=== PATIENT | male | born 1945 | race Asian ===

== ENCOUNTER 2019-03-03 16:25 | Inpatient (IN) | payer OTHER ==
[2019-03-03] MEDS ORDERED: SODIUM CHLORIDE 1,000 ML IV STA (18:31)
--- NOTE | 2019-03-03 20:10 | PDOC ---
History of Present Illness - General Chief Complaint: Lethargy Stated Complaint: G Tube Problem Time Seen by Provider: 03/03/19 17:49 History Source: Family, Halfway Records, Other (Mason Liner at [facility]) Exam Limitations: Clinical Condition - History of Present Illness Initial Comments: 03/03/19 20:10 Rohan Kumar is a 73M with PMH seizure disorder on 500mg Depakote BID and 1000mg Keppra BID, dementia on Cogentin with AMS and refusal to speak or eat, HTN, HLD presenting from [facility] by Dr. Dozier for admission for failure to thrive and evaluation for PEG tube placement. Per family at bedside, patient has had chronic seizure disorder and dementia, but lately has been lethargic and refusing to speak or eat. Per family, believe it is 2/2 anti-epileptic medications making him drowsy. However, per , patient has been refusing to speak at all or eat for the last week. Was evaluated at [facility] for lethargy and dehydration, family told there that the seizures have "taken over his brain." Sent to [facility] facility for rehab, Dr. Dozier had patient on IV fluids. Today, family had meeting with Nurse Wafer Fabrication Operator at [facility]. Contacted at cell #, reported that family meeting today for goals of care. Per nurse home health care case manager, family believes that patient will recover back to normal and will be able to be independent, despite long discussion that patient was likely not going to recover and will ultimately need hospice care given dementia and seizures and refusal to eat. Family wishes for PEG to be placed so they can take him home to care for him, Dr. Dozier referred patient to [facility] ED for admission for IVF, monitoring, and planning for placement of PEG TONIA. Past History - Past Medical History Allergies/Adverse Reactions: Allergies Allergy/AdvReac Type Severity Reaction Status Date / Time No Known Allergies Allergy Verified 03/03/19 17:25 Home Medications: Ambulatory Orders Acetaminophen [Tylenol] 325 mg PO Q4H PRN 03/03/19 Amlodipine Besylate 5 mg PO DAILY 03/03/19 Apixaban [Eliquis] 5 mg PO BID 03/03/19 Atorvastatin Ca [Lipitor] 20 mg PO HS 03/03/19 Cyanocobalamin (Vitamin B-12) [Cyanocobalamin Injection] 1,000 mcg IJ ASDIR 12/12 Divalproex Sprinkle [Depakote Sprinkle Caps -] 125 mg PO BID 03/03/19 Multivitamin [Multiple Vitamins] 1 each PO DAILY 03/03/19 Sennosides [Senna Lax] 8.6 mg PO BID 03/03/19 levETIRAcetam [levETIRAcetam ORAL SUSPENSION] 100 mg PO BID 03/03/19 Anemia: Yes Cardiac Disorders: Yes (AFIB) COPD: No GI Disorders: Yes (CONSTIPATION) HTN: Yes Hypercholesterolemia: Yes Seizures: Yes Other medical history: METABOLIC ENCEPHALOPATHY,DYSPHAGIA - Immunization History Immunization Up to Date: Yes - Psycho Social/Smoking Cessation Hx Smoking History: Unknown if ever smoked Have you smoked in the past 12 months: No Information on smoking cessation initiated: No Hx Alcohol Use: No Drug/Substance Use Hx: No Review of Systems - Review of Systems Able to Perform ROS?: No (dementia) *Physical Exam - Vital Signs Last Vital Signs Temp Pulse Resp BP Pulse Ox 98.5 F 65 17 124/87 100 03/03/19 17:16 03/03/19 17:16 03/03/19 17:16 03/03/19 17:16 03/03/19 17:16 - Physical Exam General Appearance: Yes: Nourished, Appropriately Dressed, Other (patient is unresponsive to voice commands, no response to sternal rub, actively resisting arm movement or jaw opening). No: Apparent Distress HEENT: positive: EOMI, RAJENDRA. negative: Scleral Icterus (R), Scleral Icterus (L) ED Treatment Course - LABORATORY CBC & Chemistry Diagram: 03/03/19 20:45 03/03/19 20:45 Medical Decision Making - Medical Decision Making 03/03/19 20:10 Rohan Kumar is a 73M with PMH seizure disorder on 500mg Depakote BID and 1000mg Keppra BID, dementia on Cogentin with AMS and refusal to speak or eat, HTN, HLD presenting from [facility] by Dr. Dozier for admission for failure to thrive and evaluation for PEG tube placement. Evaluation via: CMP CBC Coags VBG ECG CXR CT Head Lactic acid 2x VBG samples unable to be run 2/[address] 20G US-guided IV, patient has significant soft tissue edema and deep, small veins, has L arm 20G that flushes well. Will admit to hospitalist team. 03/03/19 22:42 Patient given Keppra and Depakote at 22:30. 03/03/19 22:51 ECG shows NSR with LAD, TWI in leads II/III/aVF, interventricular conduction delay, HR 67, QRS 114, QTc 483 03/03/19 23:52 Patient signed out to Dr. Goodman with hospitalist team, blue for Med-Surg under Dr. Nuno. Going to CT for head scan now. Has bed on 8th floor. Discharge - Discharge Information Problems reviewed: Yes Clinical Impression/Diagnosis: Failure to thrive in adult Dementia Qualifiers: Dementia type: unspecified type Dementia behavioral disturbance: with behavioral disturbance Qualified Code(s): F03.91 - Unspecified dementia with behavioral disturbance Condition: Stable - Admission Yes - Follow up/Referral - Patient Discharge Instructions - Post Discharge Activity
[2019-03-03 20:56] LABS: BASO % 0.8 % (0-2.0); EOS % 0.8 % (0-4.5); HEMATOCRIT 42.5 % (35.4-49); HEMOGLOBIN 13.7 GM/dL (11.7-16.9); LYMPH % 22.3 % (8-40); MCH 30.5 pg (25.7-33.7); MCHC 32.2 g/dl (32.0-35.9); MEAN CELL VOLUME 94.8 fl (80-96); MEAN PLT VOLUME 7.4 fl (7.5-11.1); NEUT % 71.1 % (42.8-82.8); PLATELET COUNT 195 K/MM3 (134-434); RBC 4.49 M/mm3 (4.00-5.60); WHITE BLOOD COUNT 6.2 K/mm3 (4.0-10.0)
[2019-03-03 21:10] LABS: INR 1.39 (0.83-1.09); PROTHROMBIN TIME (PATIENT) 16.4 SEC (9.7-13.0)
[2019-03-03 21:13] LABS: ACTIVATED PTT 22.1 SECONDS (25.2-36.5)
[2019-03-03 21:33] LABS: ALBUMIN 2.4 g/dl (3.4-5.0); BILIRUBIN,TOTAL 0.6 mg/dL (0.2-1); BLOOD UREA NITROGEN 18.5 mg/dL (7-18); CALCIUM 8.2 mg/dL (8.5-10.1); CREATININE 0.4 mg/dL (0.55-1.3); POTASSIUM 4.4 mmol/L (3.5-5.1); TOT PROT 6.1 g/dl (6.4-8.2)
[2019-03-03] MEDS ORDERED: levETIRAcetam 500 MG/5 ML INJECTION VIAL IVPB ONE (22:13)
[2019-03-03] MEDS ORDERED: VALPROATE SODIUM 500 MG/5 ML VIAL ONE (22:14)
[2019-03-03] MEDS: VALPROATE SODIUM 500 MG/5 ML VIAL IVPB SCH ×2 (22:33→23:10)
[2019-03-03] MEDS: levETIRAcetam 500 MG/5 ML INJECTION VIAL IVPB SCH ×2 (22:33→23:10)
--- NOTE | 2019-03-03 22:42 | PDOC ---
Documentation entered by Ronaldo Fajardo SCRIBE, acting as scribe for Mattie Salgado MD. Mattie Salgado MD: This documentation has been prepared by the Scotty berry Daniel, SCRIBE, under my direction and personally reviewed by me in its entirety. I confirm that the documentation accurately reflects all work, treatment, procedures, and medical decision making performed by me. Attending Attestation - Resident Resident Name: Stephen Cheng - ED Attending Attestation I have performed the following: I have examined & evaluated the patient, The case was reviewed & discussed with the resident, I agree w/resident's findings & plan, Exceptions are as noted - HPI HPI: 03/03/19 18:41 The patient is a 73 year old male with a past medical history of seizure disorder here today for evaluation of lethargy. Patient was sent in for admission by Dr. Dozier. Patient has been refusing to open his mouth or take anything PO for 1 week. Patient was seen yesterday at another hospital for lethargy. Patient's blade operator at bedside states that the patient ate a little bit yesterday and is at his baseline mental status. Allergies: NKA PCP: Cortez Dozier - Physicial Exam PE: 03/03/19 19:25 NAD EOMI, RAJENDRA MMM, OP WNL NCAT, no midline cervical tenderness +systolic injection murmur. RRR, nl s1/s2, no r/g CTABL, no w/r/r Soft, NTND, normal bowel sounds No edema, WWP, no rash Neuro grossly intact, gait WNL, moving all 4 not following commands. - Medical Decision Making 03/03/19 19:32 73yoM w/ longstanding seizure disorder, HI resident 2/2 chronic functional decline prensets sent for admit for FTT x 1 week, refusing POs, including meds. - labs w/ preop for PEG placement - hct - ivf - AEDs via IV - admit
--- NOTE | 2019-03-03 23:37 | PN ---
Teaching Attending Note Name of Resident: Ashley Goodman ATTENDING PHYSICIAN STATEMENT I saw and evaluated the patient. I reviewed the resident's note and discussed the case with the resident. I agree with the resident's findings and plan as documented. SUBJECTIVE: 73M with PMH seizure disorder , Metabolic encephalopathy, atrial fibrillation status post CVA, bedbound, hypertension, hyperlipidemia, chronic anemia, dementia Presented with AMS and refusal to speak or eat from [facility] sent by Dr. Dozier for admission for failure to thrive and evaluation for PEG tube placement. OBJECTIVE: Last Vital Signs Temp Pulse Resp BP Pulse Ox 98.5 F 82 20 132/73 100 03/03/19 23:05 03/03/19 23:05 03/03/19 23:05 03/03/19 23:05 03/03/19 23:05 GENERAL: Thin, nontoxic, well nourished. Awake and alert. No acute distress. HEENT: Normocephalic, atraumatic. PERRLA, EOMI. No conjunctival pallor. Sclera are non- icteric. Moist mucous membranes. Oropharynx is clear. NECK: Supple. Full ROM. No JVD. Carotid pulses 2+ and symmetric, without bruits. No thyromegaly. No lymphadenopathy. CARDIOVASCULAR: Regular rate and rhythm. No murmurs, rubs, or gallops. Distal pulses are 2+ and symmetric. PULMONARY: No evidence of respiratory distress. Lungs clear to auscultation bilaterally. No wheezing, rales or rhonchi. ABDOMINAL: Soft. Non-tender. Non-distended. No rebound or guarding. No organomegaly. Normoactive bowel sounds. MUSCULOSKELETAL Normal range of motion at all joints. No bony deformities or tenderness. No CVA tenderness. EXTREMITIES: No cyanosis. No clubbing. No edema. No calf tenderness. SKIN: Small stage II ulcer on sacral region PSYCHIATRIC: Nonverbal, does not follow commands Abnormal Lab Results 03/03/19 03/03/19 03/03/19 20:45 20:45 20:45 MPV 7.4 L PT with INR 16.40 H INR 1.39 H PTT (Actin FS) 22.1 L Anion Gap 3 L BUN 18.5 H Creatinine 0.4 L Random Glucose 70 L Calcium 8.2 L AST 51 H Total Protein 6.1 L Albumin 2.4 L Imaging studies reviewed ASSESSMENT AND PLAN: 73-year-old man with reported failure to thrive, First time in hospital.No acute issues identified at this time.Uncertain baseline mental status, reported to be communicative at baseline and now is silent. Admit to [facility] Follow-up Head CT report Obtain medical records from patient's [facility] Dietary evaluation and calorie count Speech and swallow evaluation Consider GI eval for PEG placement #seizure disorder 500mg Depakote BID and 1000mg Keppra BID(If unable to take Keppra p.o. would switch to IV with the same dose) #History of atrial fibrillationRate was controlled Continue with home dose Eliquis #DVT prophylaxisalready on Eliquis Advanced directivesDNR and DNI as per chart documentation
--- NOTE | 2019-03-04 00:49 | HP ---
CHIEF COMPLAINT: Poor PO intake, failure to thrive and for PEG tube placement PCP: HISTORY OF PRESENT ILLNESS: Pt is a 73 yo M with PMHx of Dementia, seizure disorder, CVA, afib, constipation, HTN, HLD, dysphagia, metab encephalopathy presenting from [facility] for refusal of PO intake, increased lethargy and altered mental status. Pt has been in and out of various hospitals, rehab centers and [place] since October 26, 2017 when he had a stroke which manifested as peripheral visual loss b/l and some R sided weakness than resolved following rehabilitation. In May 2018 he had a generalized tonic clonic seizure, but recovered. In October 2018 he had another seizure, which was thought to to be a stroke but missed tpa window due to elevated BP. Since October 2018 he has not been able to walk and has developed decubitus ulcers and stiffness of the hands. Pt was however said to be communicative until about 3 weeks ago when he became altered again, was admitted for UTI at [facility] and then discharged to [facility]. Today the family decided at a family meeting at [facility] to have the patient get a PEG tube since he is refusing to feed, that is why he was brought in today. 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 Lives with , daughter is HCP but pt now total care an has been in various hospitals and [place] over the past year Smoking: Alcohol: Drugs: Allergies No Known Allergies Allergy (Verified 03/03/19 17:25) HOME MEDICATIONS: Home Medications Medication Instructions Recorded Acetaminophen [Tylenol] 325 mg PO Q4H PRN 03/03/19 Amlodipine Besylate 5 mg PO DAILY 03/03/19 Apixaban [Eliquis] 5 mg PO BID 03/03/19 Atorvastatin Ca [Lipitor] 20 mg PO HS 03/03/19 Cyanocobalamin (Vitamin B-12) 1,000 mcg IJ ASDIR 03/03/19 [Cyanocobalamin Injection] Divalproex Sprinkle [Depakote 125 mg PO BID 03/03/19 Sprinkle Caps -] Multivitamin [Multiple Vitamins] 1 each PO DAILY 03/03/19 Sennosides [Senna Lax] 8.6 mg PO BID 03/03/19 levETIRAcetam [levETIRAcetam ORAL 100 mg PO BID 03/03/19 SUSPENSION] REVIEW OF SYSTEMS Unable to obtain, pt not communicating verbally or obeying commands PHYSICAL EXAMINATION Vital Signs - 24 hr 03/03/19 03/03/19 03/03/19 16:27 17:16 23:05 Temperature 98.5 F 98.5 F Pulse Rate 65 Pulse Rate [ 82 Left Radial] Respiratory 17 20 Rate Blood Pressure 124/87 Blood Pressure 132/73 [Right Arm] O2 Sat by Pulse 100 100 100 Oximetry (%) GENERAL:Thin looking pt, Awake, alert, pt has eyes open, moaned when he was moved to be examined but does not obey commands HEAD: Normal with no signs of trauma. EYES: Pupils equal, round and reactive to light EARS, NOSE, THROAT: Would not open mouth NECK: supple LUNGS: Breath sounds equal, clear to auscultation bilaterally. No wheezes, and no crackles. HEART: irregular rate and rhythm, normal S1 and S2, 3/6 pansystolic murmur LLSB radiating to axilla ABDOMEN: Soft, nontender, not distended, normoactive bowel sounds, no guarding, no rebound, no masses. MAIRA: Saccral decubitus ulcer stage 3, [id number], clean, no anal fissures, prolapse or tags. Firm soft stool in anal vault. Enlarged prostate, firm, mobile mucosa, no palpable nodules. Gloved finger with brownish stool UPPER EXTREMITIES: B/L extremities in flexion with cushioning in palm LOWER EXTREMITIES: B/l supportive cushioning . Decubitus ulcers on L medial ankle stage 2,plantar surface of heel b/l NEUROLOGICAL: Moans to pain, but does not withdraw feet CBC, BMP 03/03/19 20:45 03/03/19 20:45 Laboratory Results - last 24 hr 03/03/19 03/03/19 03/03/19 20:45 20:45 20:45 WBC 6.2 RBC 4.49 Hgb 13.7 Hct 42.5 MCV 94.8 MCH 30.5 MCHC 32.2 RDW 15.0 Plt Count 195 MPV 7.4 L Absolute Neuts (auto) 4.4 Neutrophils % 71.1 Lymphocytes % 22.3 Monocytes % 5.0 Eosinophils % 0.8 Basophils % 0.8 Nucleated RBC % 0 PT with INR 16.40 H INR 1.39 H PTT (Actin FS) 22.1 L VBG pH POC VBG pCO2 POC VBG pO2 VBG HCO3 VBG O2 Sat (Yolanda) VBG Base Excess Sodium 141 Potassium 4.4 Chloride 106 Carbon Dioxide 32 Anion Gap 3 L BUN 18.5 H Creatinine 0.4 L Est GFR (CKD-EPI)AfAm 134.66 Est GFR (CKD-EPI)NonAf 116.19 Random Glucose 70 L Lactic Acid Calcium 8.2 L Total Bilirubin 0.6 AST 51 H ALT 28 Alkaline Phosphatase 112 Total Protein 6.1 L Albumin 2.4 L Blood Type Antibody Screen 03/03/19 03/03/19 03/03/19 20:45 20:45 20:45 WBC RBC Hgb Hct MCV MCH MCHC RDW Plt Count MPV Absolute Neuts (auto) Neutrophils % Lymphocytes % Monocytes % Eosinophils % Basophils % Nucleated RBC % PT with INR INR PTT (Actin FS) VBG pH Cancelled POC VBG pCO2 Cancelled POC VBG pO2 Cancelled VBG HCO3 Cancelled VBG O2 Sat (Yolanda) Cancelled VBG Base Excess Cancelled Sodium Potassium Chloride Carbon Dioxide Anion Gap BUN Creatinine Est GFR (CKD-EPI)AfAm Est GFR (CKD-EPI)NonAf Random Glucose Lactic Acid 2.0 Calcium Total Bilirubin AST ALT Alkaline Phosphatase Total Protein Albumin Blood Type O POSITIVE Antibody Screen Negative 03/03/19 21:44 WBC RBC Hgb Hct MCV MCH MCHC RDW Plt Count MPV Absolute Neuts (auto) Neutrophils % Lymphocytes % Monocytes % Eosinophils % Basophils % Nucleated RBC % PT with INR INR PTT (Actin FS) VBG pH Cancelled POC VBG pCO2 Cancelled POC VBG pO2 Cancelled VBG HCO3 Cancelled VBG O2 Sat (Yolanda) Cancelled VBG Base Excess Cancelled Sodium Potassium Chloride Carbon Dioxide Anion Gap BUN Creatinine Est GFR (CKD-EPI)AfAm Est GFR (CKD-EPI)NonAf Random Glucose Lactic Acid Calcium Total Bilirubin AST ALT Alkaline Phosphatase Total Protein Albumin Blood Type Antibody Screen Ambulatory Orders Acetaminophen [Tylenol] 325 mg PO Q4H PRN 03/03/19 Amlodipine Besylate 5 mg PO DAILY 03/03/19 Apixaban [Eliquis] 5 mg PO BID 03/03/19 Atorvastatin Ca [Lipitor] 20 mg PO HS 03/03/19 Cyanocobalamin (Vitamin B-12) [Cyanocobalamin Injection] 1,000 mcg IJ ASDIR 12/12 Divalproex Sprinkle [Depakote Sprinkle Caps -] 125 mg PO BID 03/03/19 Multivitamin [Multiple Vitamins] 1 each PO DAILY 03/03/19 Sennosides [Senna Lax] 8.6 mg PO BID 03/03/19 levETIRAcetam [levETIRAcetam ORAL SUSPENSION] 100 mg PO BID 03/03/19 Current Medications Acetaminophen (Tylenol -) 325 mg PO Q4H PRN PRN Reason: PAIN Amlodipine Besylate (Norvasc -) 5 mg PO DAILY [facility] Apixaban (Eliquis -) 5 mg PO BID [facility] Atorvastatin Calcium (Lipitor -) 20 mg PO HS [facility] Divalproex Sodium (Depakote Sprinkle Caps -) 125 mg PO BID [facility] Levetiracetam (Keppra Injection -) 1,000 mg IVPB BID [facility] Last Admin: 03/03/19 23:10 Dose: Not Given Multivitamins/Minerals/Vitamin C (Tab-A-Vit -) 1 tab PO DAILY [facility] Senna (Senna -) 1 tab PO BID [facility] Valproate Sodium (Depacon Injection -) 500 mg IVPB BID [facility] Last Admin: 03/03/19 23:10 Dose: Not Given ASSESSMENT/PLAN: Pt is a 73 yo M with PMHx of Dementia, seizure disorder, CVA, afib, constipation , HTN, HLD, dysphagia, metab encephalopathy presenting from [facility] for refusal of PO intake, increased lethargy and altered mental status. Failure to thrive s/p recurrent strokes Hx of dementia dysphagia Possible depression, may benefit from psych eval Dementia, seizure disorder-cont AED CVA- freq turning Fall precautions afib, constipation- cotn senna HTN-amlodipine HLD- lipitor metab encephalopathy - CT head pending Plan: Accurate calorie count Dietary consult Swallow eval Will repeat ekg in am Consider GI consult for possible PEG tube placement Pt currently eliquis for afib, is also high risk for DVT with immobility, will continue for now CT head read pending Cont home meds Discussion of goals of care with family DNR/dni Salt free diet Cont eliquis Visit type - Emergency Visit Emergency Visit: Yes ED Registration Date: 03/03/19 Care time: The patient presented to the Emergency Department on the above date and was hospitalized for further evaluation of their emergent condition. - New Patient This patient is new to me today: Yes Date on this admission: 03/04/19 - Critical Care Critical Care patient: No ATTENDING PHYSICIAN STATEMENT I saw and evaluated the patient. I reviewed the resident's note and discussed the case with the resident. I agree with the resident's findings and plan as documented. SUBJECTIVE: OBJECTIVE: ASSESSMENT AND PLAN:
[2019-03-04 02:19] VITALS: BMI 23.1
[2019-03-04 07:58] LABS: BASO % 0.7 % (0-2.0); EOS % 0.7 % (0-4.5); HEMATOCRIT 35.6 % (35.4-49); HEMOGLOBIN 11.9 GM/dL (11.7-16.9); LYMPH % 24.3 % (8-40); MCHC 33.3 g/dl (32.0-35.9); MEAN CELL VOLUME 93.3 fl (80-96); MEAN PLT VOLUME 7.5 fl (7.5-11.1); MONO % 8.9 % (3.8-10.2); NEUT % 65.4 % (42.8-82.8); PLATELET COUNT 131 K/MM3 (134-434); RBC 3.82 M/mm3 (4.00-5.60); WHITE BLOOD COUNT 5.8 K/mm3 (4.0-10.0)
--- NOTE | 2019-03-04 08:17 | PN ---
Progress Note, Physician Chief Complaint: Patient is comfortable eating breakfast. History of Present Illness: 73M with PMH seizure disorder , Metabolic encephalopathy, atrial fibrillation status post CVA, bedbound, hypertension, hyperlipidemia, chronic anemia, dementia Presented with AMS and refusal to speak or eat from [facility] sent by Dr. Dozier for admission for failure to thrive and evaluation for PEG tube placement. - Current Medication List Current Medications: Active Medications Acetaminophen (Tylenol -) 325 mg PO Q4H PRN PRN Reason: PAIN Amlodipine Besylate (Norvasc -) 5 mg PO DAILY [facility] Apixaban (Eliquis -) 5 mg PO BID [facility] Atorvastatin Calcium (Lipitor -) 20 mg PO HS [facility] Levetiracetam (Keppra Injection -) 1,000 mg IVPB BID [facility] Last Admin: 03/03/19 23:10 Dose: Not Given Multivitamins/Minerals/Vitamin C (Tab-A-Vit -) 1 tab PO DAILY [facility] Senna (Senna -) 1 tab PO BID [facility] Valproate Sodium (Depacon Injection -) 500 mg IVPB BID [facility] Last Admin: 03/03/19 23:10 Dose: Not Given - Objective Vital Signs: Vital Signs Temperature 97.5 F L 03/04/19 07:45 Pulse Rate 65 03/04/19 07:45 Respiratory Rate 20 03/04/19 07:45 Blood Pressure 110/65 03/04/19 07:45 O2 Sat by Pulse Oximetry (%) 96 03/04/19 02:27 General: Elderly man, comfortable, not in distress HEENT; mucous membranes moist, no anemia, no jaundice, PERRLA, no nystagmus Neck: No JVD, supple, no bruit, thyroid palpably normal, normal carotid pulsations. Chest: Nontender, clear to auscultation bilaterally CVS: S1-S2 regular/irregular no murmur/gallop/rub Abdomen: Nondistended, soft, bowel sounds present. Extremities: Trace edema., No cough tenderness, pulses present COMPLIANCE QUALITY PERFORMANCE ANALYST: Right-sided hemiparesis at baseline Labs: INR, PTT INR 1.39 (0.83-1.09) H 03/03/19 20:45 CBC, BMP 03/04/19 07:18 03/04/19 06:36 Problem List - Problems (1) Failure to thrive in adult Assessment/Plan: Patient was referred to ED for evaluation of failure to thrive patient was hypoglycemic, but at the time of examination patient was eating breakfast assisted by nurse eating without any choking or aspiration, will continue feeding with aspiration precautions, evaluation by speech and swallow if fails needs evaluation by the GI, as per residential note patient was not taking any problem with swallowing but he was refusing for and not opening his mouth. Problems reviewed: Yes Code(s): R62.7 - ADULT FAILURE TO THRIVE (2) Dementia Assessment/Plan: Chronic no acute issue. Problems reviewed: Yes Code(s): F03.90 - UNSPECIFIED DEMENTIA WITHOUT BEHAVIORAL DISTURBANCE Qualifiers: Dementia type: unspecified type Dementia behavioral disturbance: with behavioral disturbance Qualified Code(s): F03.91 - Unspecified dementia with behavioral disturbance (3) Atrial fibrillation Assessment/Plan: Rate controlled continue apixaban. We will anticoagulate Problems reviewed: Yes Code(s): I48.91 - UNSPECIFIED ATRIAL FIBRILLATION Qualifiers: Atrial fibrillation type: permanent Qualified Code(s): I48.21 - Permanent atrial fibrillation (4) CVA (cerebral vascular accident) Assessment/Plan: Old CVA right-sided hemiparesis patient is bedbound minimally contracted. Problems reviewed: Yes Code(s): I63.9 - CEREBRAL INFARCTION, UNSPECIFIED (5) Seizure disorder Assessment/Plan: Continue Keppra and valproic acid follow-up valproic acid level. Problems reviewed: Yes Code(s): G40.909 - EPILEPSY, UNSP, NOT INTRACTABLE, WITHOUT STATUS EPILEPTICUS (6) Toxic metabolic encephalopathy Assessment/Plan: Due to hypoglycemia, fingerstick noted 53, will start on D5 half normal saline at 50 cc Accu-Chek twice daily Problems reviewed: Yes Code(s): G92 - TOXIC ENCEPHALOPATHY (7) Hypertension Assessment/Plan: Continue home medications amlodipine Problems reviewed: Yes Code(s): I10 - ESSENTIAL (PRIMARY) HYPERTENSION (8) Hypercholesterolemia Assessment/Plan: Continue atorvastatin Problems reviewed: Yes Code(s): E78.00 - PURE HYPERCHOLESTEROLEMIA, UNSPECIFIED
[2019-03-04 08:30] LABS: ALBUMIN 1.8 g/dl (3.4-5.0); BILIRUBIN,TOTAL 0.4 mg/dL (0.2-1); BLOOD UREA NITROGEN 15.6 mg/dL (7-18); CALCIUM 7.6 mg/dL (8.5-10.1); CREATININE 0.3 mg/dL (0.55-1.3); MAGNESIUM 2.1 mg/dL (1.8-2.4); PHOSPHOROUS 2.5 mg/dL (2.5-4.9); POTASSIUM 3.8 mmol/L (3.5-5.1); TOT PROT 4.5 g/dl (6.4-8.2)
[2019-03-04] MEDS: VALPROATE SODIUM 500 MG/5 ML VIAL IVPB SCH ×2 (09:55→21:28)
[2019-03-04 09:58] LABS: URINE APPEARANCE CLEAR; URINE BILIRUBIN NEGATIVE (NEGATIVE); URINE COLOR YELLOW; URINE GLUCOSE (UA) NEGATIVE (NEGATIVE); URINE KETONE NEGATIVE (NEGATIVE); URINE LEUK ESTERASE NEGATIVE (NEGATIVE); URINE NITRITE NEGATIVE (NEGATIVE); URINE PROTEIN NEGATIVE (NEGATIVE)
[2019-03-04] MEDS: levETIRAcetam 500 MG/5 ML INJECTION VIAL IVPB SCH ×2 (09:58→21:33)
[2019-03-04] MEDS: SENNOSIDES 8.6MG TABLET (FP) PO SCH ×2 (10:00→21:35)
[2019-03-04] MEDS: APIXABAN 5 MG TABLET PO SCH ×2 (10:00→21:35)
[2019-03-04] MEDS ORDERED: LEVETIRACETAM PO SCH (10:00)
[2019-03-04] MEDS ORDERED: DIVALPROEX SODIUM 125 MG SPRINKLE CAPS PO SCH (10:00)
[2019-03-04] MEDS: MULTIVITAMINS (DAILY MVI) TABLET (FP) PO SCH (10:00)
[2019-03-04] MEDS: amLODIPine BESYLATE 5 MG TABLET (FP) PO SCH (10:01)
--- NOTE | 2019-03-04 11:29 | EKG ---
Test Reason : Blood Pressure : / mmHG Vent. Rate : 067 BPM Atrial Rate : 067 BPM P-R Int : 172 ms QRS Dur : 122 ms QT Int : 444 ms P-R-T Axes : 053 -39 -33 degrees QTc Int : 469 ms NORMAL SINUS RHYTHM LEFT AXIS DEVIATION RIGHT BUNDLE BRANCH BLOCK ABNORMAL ECG WHEN COMPARED WITH ECG OF 03-MAR-2019 21:41, NO SIGNIFICANT CHANGE WAS FOUND Confirmed by BISHOP MCGOWAN, SAY ([id number]) on 03/04/2019 11:29:00 AM Referred By: Wade CEDEÑO Confirmed By:SAY ALAS MD
--- NOTE | 2019-03-04 11:29 | EKG ---
Test Reason : Blood Pressure : / mmHG Vent. Rate : 067 BPM Atrial Rate : 067 BPM P-R Int : 168 ms QRS Dur : 114 ms QT Int : 458 ms P-R-T Axes : 041 -41 -41 degrees QTc Int : 483 ms NORMAL SINUS RHYTHM LEFT AXIS DEVIATION RIGHT BUNDLE BRANCH BLOCK ABNORMAL ECG NO PREVIOUS ECGS AVAILABLE Confirmed by BISHOP MCGOWAN, SAY ([id number]) on 03/04/2019 11:28:53 AM Referred By: Confirmed By:SAY ALAS MD
[2019-03-04] MEDS ORDERED: PT OWN MED DRAWER 7, Y5N ONE (12:12)
[2019-03-04] MEDS ORDERED: D5-1/2NS+10 MEQ KCL - 1,000 ML IV SCH ×2 (12:30)
[2019-03-04] MEDS: D5-1/2NS+10 MEQ KCL - 10 MEQ/1,000 ML INFUS.BAG IV SCH (12:32)
[2019-03-04] MEDS: ATORVASTATIN CA 20 MG TABLET (FP) PO SCH (21:35)
--- NOTE | 2019-03-05 08:19 | PN ---
Progress Note, Physician Chief Complaint: Patient is looks comfortable responding to verbal commands with simple transfers , able to eat consuming more than 50% of his tray no choking or coughing during eating. History of Present Illness: 73M DNR/DNI with multiple medical co-morbidities, history of atrial fibrillation , CVA, right-sided residual weakness, patient, hypertension, chronic anemia, dementia, bedbound seizure disorder, patient was transferred from [facility] on family request to evaluate for PEG placement as patient was not tolerating, patient was transferred to [facility] on 03/01/2019 from [facility] day he was admitted for toxic metabolic encephalopathy. - Current Medication List Current Medications: Active Medications Acetaminophen (Tylenol -) 325 mg PO Q4H PRN PRN Reason: PAIN Amlodipine Besylate (Norvasc -) 5 mg PO DAILY [facility] Last Admin: 03/04/19 10:01 Dose: 5 mg Apixaban (Eliquis -) 5 mg PO BID [facility] Last Admin: 03/04/19 21:35 Dose: 5 mg Atorvastatin Calcium (Lipitor -) 20 mg PO HS [facility] Last Admin: 03/04/19 21:35 Dose: 20 mg Potassium Chloride/Dextrose/Sod Cl (D5-1/2ns+10 Meq Kcl -) 10 meq in 1,000 mls @ 42 mls/hr IV ASDIR [facility] Last Admin: 03/04/19 12:32 Dose: 42 mls/hr Levetiracetam (Keppra Injection -) 1,000 mg IVPB BID [facility] Last Admin: 03/04/19 21:33 Dose: 1,000 mg Multivitamins/Minerals/Vitamin C (Tab-A-Vit -) 1 tab PO DAILY [facility] Last Admin: 03/04/19 10:00 Dose: 1 tab Senna (Senna -) 1 tab PO BID [facility] Last Admin: 03/04/19 21:35 Dose: 1 tab Valproate Sodium (Depacon Injection -) 500 mg IVPB BID [facility] Last Admin: 03/04/19 21:28 Dose: 500 mg - Objective Vital Signs: Vital Signs Temperature 97.4 F L 03/05/19 07:29 Pulse Rate 86 03/05/19 07:29 Respiratory Rate 20 03/05/19 07:29 Blood Pressure 119/70 03/05/19 07:29 O2 Sat by Pulse Oximetry (%) 99 03/04/19 21:00 General: Elderly man, comfortable, not in distress HEENT; mucous membranes moist, no anemia, no jaundice, PERRLA, no nystagmus Neck: No JVD, supple, no bruit, thyroid palpably normal, normal carotid pulsations. Chest: Nontender, clear to auscultation bilaterally CVS: S1-S2 irregular no murmur/gallop/rub Abdomen: Nondistended, soft, bowel sounds present. Extremities: Trace edema., No cough tenderness, pulses present [employer]: Right-sided hemiparesis at baseline Labs: CBC, BMP 03/04/19 07:18 03/04/19 06:36 Problem List - Problems (1) Failure to thrive in adult Assessment/Plan: Patient was referred to ED for evaluation of failure to thrive patient was hypoglycemic, but at the time of examination patient was eating breakfast assisted by nurse eating without any choking or aspiration, will continue feeding with aspiration precautions, evaluation by speech and swallow if fails needs evaluation by the GI, as per senior care note patient was not taking any problem with swallowing but he was refusing for and not opening his mouth. Code(s): R62.7 - ADULT FAILURE TO THRIVE (2) Dementia Assessment/Plan: Chronic no acute issue. Code(s): F03.90 - UNSPECIFIED DEMENTIA WITHOUT BEHAVIORAL DISTURBANCE Qualifiers: Dementia type: unspecified type Dementia behavioral disturbance: with behavioral disturbance Qualified Code(s): F03.91 - Unspecified dementia with behavioral disturbance (3) Atrial fibrillation Assessment/Plan: Rate controlled continue apixaban. We will anticoagulate Code(s): I48.91 - UNSPECIFIED ATRIAL FIBRILLATION Qualifiers: Atrial fibrillation type: permanent Qualified Code(s): I48.21 - Permanent atrial fibrillation (4) CVA (cerebral vascular accident) Assessment/Plan: Old CVA right-sided hemiparesis patient is bedbound minimally contracted. Code(s): I63.9 - CEREBRAL INFARCTION, UNSPECIFIED (5) Seizure disorder Assessment/Plan: Continue Keppra 1 g twice daily, valproic acid 500 mg twice daily, follow-up valproic acid level. Code(s): G40.909 - EPILEPSY, UNSP, NOT INTRACTABLE, WITHOUT STATUS EPILEPTICUS (6) Toxic metabolic encephalopathy Assessment/Plan: Due to hypoglycemia, fingerstick noted 53, will start on D5 half normal saline at 50 cc Accu-Chek twice daily Code(s): G92 - TOXIC ENCEPHALOPATHY (7) Hypertension Assessment/Plan: Continue home medications amlodipine Code(s): I10 - ESSENTIAL (PRIMARY) HYPERTENSION (8) Hypercholesterolemia Assessment/Plan: Continue atorvastatin Code(s): E78.00 - PURE HYPERCHOLESTEROLEMIA, UNSPECIFIED (9) Severe malnutrition Assessment/Plan: Due to poor p.o. intake, patient has low albumin, as per patient nurse patient is completing 50% of the MEAL TRAY each meal, follow clear movement and disposition swallow evaluation. Problems reviewed: Yes Code(s): E43 - UNSPECIFIED SEVERE PROTEIN-CALORIE MALNUTRITION
[2019-03-05] MEDS ORDERED: PT OWN MED DRAWER 7, Y5N ONE ×4 (10:08→21:14)
[2019-03-05] MEDS: SENNOSIDES 8.6MG TABLET (FP) PO SCH ×2 (10:19→21:08)
[2019-03-05] MEDS: amLODIPine BESYLATE 5 MG TABLET (FP) PO SCH (10:19)
[2019-03-05] MEDS: APIXABAN 5 MG TABLET PO SCH ×2 (10:19→21:08)
[2019-03-05] MEDS: MULTIVITAMINS (DAILY MVI) TABLET (FP) PO SCH (10:19)
[2019-03-05] MEDS: VALPROATE SODIUM 500 MG/5 ML VIAL IVPB SCH ×2 (10:22→21:16)
[2019-03-05] MEDS: levETIRAcetam 500 MG/5 ML INJECTION VIAL IVPB SCH ×2 (11:37→21:07)
[2019-03-05] MEDS ORDERED: CYANOCOBALAMIN (VITAMIN B-12) 1000 MCG/1 ML VIAL IM ONE (14:21)
[2019-03-05 15:45] LABS: BLOOD UREA NITROGEN 11.2 mg/dL (7-18); CALCIUM 7.9 mg/dL (8.5-10.1); CREATININE 0.3 mg/dL (0.55-1.3); POTASSIUM 3.6 mmol/L (3.5-5.1)
[2019-03-05 15:57] LABS: BASO % 0.5 % (0-2.0); EOS % 1.3 % (0-4.5); HEMATOCRIT 35.9 % (35.4-49); HEMOGLOBIN 11.9 GM/dL (11.7-16.9); LYMPH % 24.2 % (8-40); MCH 30.8 pg (25.7-33.7); MEAN CELL VOLUME 93.2 fl (80-96); MEAN PLT VOLUME 7.4 fl (7.5-11.1); MONO % 9.4 % (3.8-10.2); NEUT % 64.6 % (42.8-82.8); PLATELET COUNT 170 K/MM3 (134-434); RBC 3.85 M/mm3 (4.00-5.60); RDW 14.7 % (11.9-15.9); WHITE BLOOD COUNT 6.6 K/mm3 (4.0-10.0)
[2019-03-05] MEDS: ATORVASTATIN CA 20 MG TABLET (FP) PO SCH (21:08)
[2019-03-05] MEDS: D5-1/2NS+10 MEQ KCL - 10 MEQ/1,000 ML INFUS.BAG IV SCH (21:09)
--- NOTE | 2019-03-06 07:39 | PN ---
Progress Note (short form) - Note Progress Note: HPI: Limited due to clinical condition. Briefly, pt arrived here for failure to thrive and possible PEG tube, however has been eating dysphagia diet ~50% of food per meal. Vital Signs Temperature 97.5 F L 03/06/19 06:00 Pulse Rate 83 03/06/19 06:00 Respiratory Rate 20 03/06/19 06:00 Blood Pressure 120/64 03/06/19 06:00 O2 Sat by Pulse Oximetry (%) 98 03/05/19 21:00 PE: Gen: : Thin-appearing, NAD, awake, alert, oriented to self HEENT: NC/AT, bitemporal wasting noted, HAYLEY, sclera anicteric, MMM Lung: CTA b/l no wheezes or rales CARD: RRR no murmurs ABD: Soft, Nt/ND, normoactive BS Neuro: R-sided weakness in resistance (baseline) EXT: no edema, pulses b/l intact CBC, BMP 03/06/19 07:20 03/06/19 07:20 03/06/19 07:20 Prealbumin 13.4 L Microbiology 03/04/19 07:00 Urine - Urine - Catheterized Urine Culture - Final NO GROWTH OBTAINED Active Medications Acetaminophen (Tylenol -) 325 mg PO Q4H PRN PRN Reason: PAIN Amlodipine Besylate (Norvasc -) 5 mg PO DAILY [facility] Last Admin: 03/05/19 10:19 Dose: 5 mg Apixaban (Eliquis -) 5 mg PO BID [facility] Last Admin: 03/05/19 21:08 Dose: 5 mg Atorvastatin Calcium (Lipitor -) 20 mg PO HS [facility] Last Admin: 03/05/19 21:08 Dose: 20 mg Potassium Chloride/Dextrose/Sod Cl (D5-1/2ns+10 Meq Kcl -) 10 meq in 1,000 mls @ 42 mls/hr IV [facility] Last Admin: 03/05/19 21:09 Dose: 42 mls/hr Levetiracetam (Keppra Injection -) 1,000 mg IVPB BID [facility] Last Admin: 03/05/19 21:07 Dose: 1,000 mg Multivitamins/Minerals/Vitamin C (Tab-A-Vit -) 1 tab PO DAILY [facility] Last Admin: 03/05/19 10:19 Dose: 1 tab Senna (Senna -) 1 tab PO BID [facility] Last Admin: 03/05/19 21:08 Dose: 1 tab Valproate Sodium (Depacon Injection -) 500 mg IVPB BID [facility] Last Admin: 03/05/19 21:16 Dose: 500 mg Assessment and Plan: Failure to Thrive History of dementia Seizure history s/p CVA Atrial fibrillation, rate controlled Hx of HTN Hx of HLD --Speech and swallow examination pending and based upon recommendations will discuss PEG placement --Pt noted to be eating 50%+ of food tray so possibility of postponing, but will discuss with family --F/u dietary recommendations --Prealbumin 13.4 noted --Continue home seizure medications: Keppra 1gm BID Valproate 500mg BID --Obtain records from [facility] as noted to have nonconvulsive seizures --Continue Eliquis 5mg BID as patient has CHADS score 5 --Monitor HR; currently rate controlled --Continue Norvasc 5mg qdaily for HTN FEN: Fluids: None Electrolyte abnormalitieS: None Nutrition: Follow S&S recs PPX: DVT - Already on Eliquis GI - Not indicated Dispo: Continue M/S Case discussed with Dr. Jes Boothe, DO - IM PGY-3 <Horacio Boothe - Last Filed: 03/06/19 17:45> - Note Progress Note: [facility] *LIVE* Progress Note (short form) Patient Name: CELIA KENDALL Date of : 1945 Patient Status: Inpatient Attending Provider: Sunil Andre Date: 03/07/19 12:54 Initialization Date: 03/07/19 12:54 Progress Note (short form) - Note Progress Note: HPI: Limited due to clinical condition. Pt without pain or complaints today. Events noted. [facility] [place] dietary evaluation. Vital Signs Temperature 98 F 03/07/19 11:36 Pulse Rate 81 03/07/19 11:36 Respiratory Rate 20 03/07/19 11:36 Blood Pressure 122/86 03/07/19 11:36 O2 Sat by Pulse Oximetry (%) 99 03/06/19 21:00 PE: Gen: : Thin-appearing, NAD, awake, alert, oriented to self HEENT: NC/AT, bitemporal wasting noted, HAYLEY, sclera anicteric, MMM Lung: CTA b/l no wheezes or rales CARD: RRR no murmurs ABD: Soft, Nt/ND, normoactive BS Neuro: R-sided weakness in resistance (baseline) EXT: no edema, pulses b/l intact CBC, BMP 03/07/19 07:25 03/07/19 07:25 03/06/19 07:20 Prealbumin 13.4 L Microbiology 03/04/19 07:00 Urine - Urine - Catheterized Urine Culture - Final NO GROWTH OBTAINED Active Medications Acetaminophen (Tylenol -) 325 mg PO Q4H PRN PRN Reason: PAIN Last Admin: 03/06/19 10:36 Dose: 325 mg Amlodipine Besylate (Norvasc -) 5 mg PO DAILY [facility] Last Admin: 03/07/19 10:16 Dose: 5 mg Atorvastatin Calcium (Lipitor -) 20 mg PO HS [facility] Last Admin: 03/06/19 22:12 Dose: 20 mg Levetiracetam (Keppra Oral Solution -) 1,000 mg PO BID [facility] Last Admin: 03/07/19 10:15 Dose: 1,000 mg Multivitamins/Minerals/Vitamin C (Tab-A-Vit -) 1 tab PO DAILY [facility] Last Admin: 03/07/19 10:15 Dose: 1 tab Senna (Senna -) 1 tab PO BID [facility] Last Admin: 03/07/19 10:15 Dose: 1 tab Valproate Sodium (Depakene -) 500 mg PO BID [facility] Last Admin: 03/07/19 10:16 Dose: 500 mg Assessment and Plan: Failure to Thrive History of dementia Seizure history s/p CVA Atrial fibrillation, rate controlled Hx of HTN Hx of HLD --MBS today; discuss with family regarding PEG tube placement --Discussed with IR: will have to be off Eliquis for 2 days; can heparin gtt until then and hold 6hrs prior to surgery --Prep needed tentatively night for tentative PEG insertion Wednesday --Prealbumin 13.4 noted --Continue home seizure medications: Keppra 1gm BID Valproate 500mg BID --Obtain records from [facility] as noted to have nonconvulsive seizures --CHADS score 5; heparin gtt ordered for bridging for procedure --Monitor HR; currently rate controlled --Continue Norvasc 5mg qdaily for HTN FEN: Fluids: None Electrolyte abnormalities: None Nutrition: Follow S&S recs PPX: DVT - AC already on board for Afib GI - Not indicated Dispo: Continue M/S Case discussed with Dr. Jes Boothe, DO - IM PGY-3 <Horacio Boothe - Last Filed: 03/07/19 12:54> - Note Progress Note: Seen and examined; please see resident note for further discussion. Agree with their note including assessment and plan as outlined aside from as supplemented myself. Independently reviewed and verified all kelsey historical and PE findings as well as labs and imaging. Discussed at length with resident and consulting services. Aside from above no overnight events indicated; no apparent seizure activity but conversation with the family yields silent seizures as the underlying historical features. Ate 50% meal tray yesterday and as per resident today. 10 sys ROS couldn't be reliably completed due to underlying cognative issues with chronic illness VS, labs, imaging reviewed NAD AAOx1-2 resting in bed; debatable capacity and would need HCP or 2PC for procedure. Frail appearing but not cachectic or toxic. NC AT EOMI PERRLA; swallow eval pending formally RRR s1/2 Lungs CTAB, w/ sym exp NT ND +BS CN2-12 wnl, no fnd Normal mood, appropriate behavior; not agitated, limited insight due to underlying dementia. No new rashes or skin breakdown noted Trachea midline without lymphadenopathy A/P: Patient presents from SNF with complex medical history as an initial admission to [facility]. Would like to clarify some parts of history (IE his presenting signs, especially given nonexressive nature of seizures, limited communication, and DNR /I should SE occurr at any point now or after DC). He is here due to poor PO intake and for evaluation of Failure to Thrive and potential for PEG tube placement. He has a poor apparent swallow effort and a previously noted atypical speech pattern that indicated swallow evaluation with Mrs. Holcomb as well. He is confirmed as DNR/I. He is on eliquis which will need to be held should PEG be placed; would likely do heparin drip with close PTT monitoring and obtain guidance regarding when to hold. Continue other home medications and montior on the med surg floor. Nursing noted a concern about a low apparent pressure but he has been trending at this level through the weekend and is asymptomatic. Problems include: -Suspected Failure to Thrive/Poor PO Intake *Followup prealbumin, PT consult, Nutrition consult. Swallow eval given aforemntioned concerns to r/o mechanical issue. Family would opt for PEG should calorie counting endorse need (or [facility]). -Dementia without behavioral disturbance (Likely vascular +/- alzheimers, etc. Was on aricept in the past and failed due to agitation; no acute issues with sundowning or confusion. Continue to closely monitor. Is DNR/I. Admitting team confirmed paperwork) *If agitated would redirect. Avoid BZDs and would opt for haldol or seroquel if needed for sedation (FU QTc). Lacks capacity and would require HCP to consent. DNR/I. -S/P CVA *Reconcile and continue appropriate home medications. Confirm records from OSH. -Seizure history *Seizure precautions, continue home meds. Confirm records from OSH. -Hx HTN *Controlled, continue home medications. -Hx HLD DNR/I Dispo: Once completes nutiritional and swallow assessment, will discuss overall need for PEG. If he continues to eat this would not be indicated and he can be discharged. Checking prealbumin, monitoring lytes, aspiration precautions. <Sunil Andre - Last Filed: 03/07/19 22:37>
[2019-03-06 08:13] LABS: BASO % 0.5 % (0-2.0); EOS % 1.1 % (0-4.5); HEMATOCRIT 35.8 % (35.4-49); HEMOGLOBIN 11.8 GM/dL (11.7-16.9); LYMPH % 33.3 % (8-40); MCH 30.8 pg (25.7-33.7); MEAN CELL VOLUME 93.3 fl (80-96); MEAN PLT VOLUME 7.1 fl (7.5-11.1); MONO % 8.8 % (3.8-10.2); NEUT % 56.3 % (42.8-82.8); PLATELET COUNT 171 K/MM3 (134-434); RBC 3.83 M/mm3 (4.00-5.60); RDW 14.9 % (11.9-15.9); WHITE BLOOD COUNT 6.7 K/mm3 (4.0-10.0)
[2019-03-06 08:32] LABS: BLOOD UREA NITROGEN 6.6 mg/dL (7-18); CALCIUM 7.9 mg/dL (8.5-10.1); CREATININE 0.3 mg/dL (0.55-1.3); POTASSIUM 3.9 mmol/L (3.5-5.1)
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
[2019-03-06] MEDS ORDERED: PT OWN MED DRAWER 7, Y5N ONE ×3 (10:35→22:11)
[2019-03-06] MEDS: MULTIVITAMINS (DAILY MVI) TABLET (FP) PO SCH (10:36)
[2019-03-06] MEDS: SENNOSIDES 8.6MG TABLET (FP) PO SCH ×2 (10:36→22:12)
[2019-03-06] MEDS: APIXABAN 5 MG TABLET PO SCH ×2 (10:36→22:12)
[2019-03-06] MEDS: ACETAMINOPHEN 325 MG TABLET (FP) PO PRN (10:36)
[2019-03-06] MEDS: amLODIPine BESYLATE 5 MG TABLET (FP) PO SCH (10:36)
[2019-03-06] MEDS: levETIRAcetam 500 MG/5 ML INJECTION VIAL IVPB SCH (10:37)
[2019-03-06] MEDS: VALPROATE SODIUM 500 MG/5 ML VIAL IVPB SCH (11:01)
[2019-03-06] MEDS: D5-1/2NS+10 MEQ KCL - 10 MEQ/1,000 ML INFUS.BAG IV SCH (17:32)
[2019-03-06] MEDS ORDERED: levETIRAcetam 500 MG TABLET (FP) PO SCH (22:00)
[2019-03-06] MEDS: ATORVASTATIN CA 20 MG TABLET (FP) PO SCH (22:12)
[2019-03-06] MEDS: levETIRAcetam 500 MG/5 ML ORAL SOLUTION (UNIT-DOSE CUPS) PO SCH (22:12)
[2019-03-06] MEDS: VALPROATE SODIUM 250 MG/5 ML UNIT DOSE CUP PO SCH (22:13)
[2019-03-07 08:14] LABS: HEMATOCRIT 34.9 % (35.4-49); HEMOGLOBIN 11.6 GM/dL (11.7-16.9); MCH 30.8 pg (25.7-33.7); MCHC 33.1 g/dl (32.0-35.9); MEAN PLT VOLUME 7.2 fl (7.5-11.1); PLATELET COUNT 155 K/MM3 (134-434); RBC 3.75 M/mm3 (4.00-5.60); RDW 15.3 % (11.9-15.9); WHITE BLOOD COUNT 6.3 K/mm3 (4.0-10.0)
[2019-03-07 08:40] LABS: ALBUMIN 1.9 g/dl (3.4-5.0); BLOOD UREA NITROGEN 6.4 mg/dL (7-18); CALCIUM 7.9 mg/dL (8.5-10.1); CREATININE 0.4 mg/dL (0.55-1.3); PHOSPHOROUS 2.6 mg/dL (2.5-4.9); POTASSIUM 3.9 mmol/L (3.5-5.1)
[2019-03-07] MEDS ORDERED: PT OWN MED DRAWER 7, Y5N ONE ×2 (10:14→22:26)
[2019-03-07] MEDS: MULTIVITAMINS (DAILY MVI) TABLET (FP) PO SCH (10:15)
[2019-03-07] MEDS: levETIRAcetam 500 MG/5 ML ORAL SOLUTION (UNIT-DOSE CUPS) PO SCH ×2 (10:15→22:32)
[2019-03-07] MEDS: SENNOSIDES 8.6MG TABLET (FP) PO SCH ×2 (10:15→22:54)
[2019-03-07] MEDS: VALPROATE SODIUM 250 MG/5 ML UNIT DOSE CUP PO SCH ×2 (10:16→22:37)
[2019-03-07] MEDS: amLODIPine BESYLATE 5 MG TABLET (FP) PO SCH (10:16)
[2019-03-07] MEDS: APIXABAN 5 MG TABLET PO SCH (10:16)
--- NOTE | 2019-03-07 11:09 | PN ---
Progress Note, [employer] - Note Progress Note: Selected Entries 03/06/19 03/06/19 03/06/19 06:00 10:00 15:00 Breakfast 100% Lunch 50% Supper Temperature 97.5 F L 97.5 F L 98.2 F 03/06/19 03/06/19 03/06/19 17:37 19:54 22:00 Breakfast Lunch Supper 75% Temperature 97.7 F 98.1 F 03/07/19 03/07/19 03/07/19 02:15 06:46 09:07 Breakfast Lunch Supper Temperature 98.7 F 97.6 F 97.4 F L Laboratory Tests 03/07/19 07:25 WBC 6.3 Eyes remained closed. Verbal told me his name 3 times in response to different questions and said " how many times am I going to say my name??" Tolerating puree/nectar with assistance with good appetite. PEG insertion likely deferred based on PO intake. For MBS today
--- NOTE | 2019-03-07 12:57 | PN ---
Progress Note (short form) - Note Progress Note: HPI: Limited due to clinical condition. Pt without pain or complaints today. Events noted. MBS today for dietary evaluation. Vital Signs Temperature 98 F 03/07/19 11:36 Pulse Rate 81 03/07/19 11:36 Respiratory Rate 20 03/07/19 11:36 Blood Pressure 122/86 03/07/19 11:36 O2 Sat by Pulse Oximetry (%) 99 03/06/19 21:00 PE: Gen: : Thin-appearing, NAD, awake, alert, oriented to self HEENT: NC/AT, bitemporal wasting noted, HAYLEY, sclera anicteric, MMM Lung: CTA b/l no wheezes or rales CARD: RRR no murmurs ABD: Soft, Nt/ND, normoactive BS Neuro: R-sided weakness in resistance (baseline) EXT: no edema, pulses b/l intact CBC, BMP 03/07/19 07:25 03/07/19 07:25 03/06/19 07:20 Prealbumin 13.4 L Microbiology 03/04/19 07:00 Urine - Urine - Catheterized Urine Culture - Final NO GROWTH OBTAINED Active Medications Acetaminophen (Tylenol -) 325 mg PO Q4H PRN PRN Reason: PAIN Last Admin: 03/06/19 10:36 Dose: 325 mg Amlodipine Besylate (Norvasc -) 5 mg PO DAILY [facility] Last Admin: 03/07/19 10:16 Dose: 5 mg Atorvastatin Calcium (Lipitor -) 20 mg PO HS [facility] Last Admin: 03/06/19 22:12 Dose: 20 mg Levetiracetam (Keppra Oral Solution -) 1,000 mg PO BID [facility] Last Admin: 03/07/19 10:15 Dose: 1,000 mg Multivitamins/Minerals/Vitamin C (Tab-A-Vit -) 1 tab PO DAILY [facility] Last Admin: 03/07/19 10:15 Dose: 1 tab Senna (Senna -) 1 tab PO BID [facility] Last Admin: 03/07/19 10:15 Dose: 1 tab Valproate Sodium (Depakene -) 500 mg PO BID [facility] Last Admin: 03/07/19 10:16 Dose: 500 mg Assessment and Plan: Failure to Thrive History of dementia Seizure history s/p CVA Atrial fibrillation, rate controlled Hx of HTN Hx of HLD --MBS today; discuss with family regarding PEG tube placement --Discussed with IR: will have to be off Eliquis for 2 days; can heparin gtt until then and hold 6hrs prior to surgery --Prep needed tentatively night for tentative PEG insertion Wednesday --Prealbumin 13.4 noted --Continue home seizure medications: Keppra 1gm BID Valproate 500mg BID --Obtain records from [facility] as noted to have nonconvulsive seizures --CHADS score 5; heparin gtt ordered for bridging for procedure --Monitor HR; currently rate controlled --Continue Norvasc 5mg qdaily for HTN FEN: Fluids: None Electrolyte abnormalities: None Nutrition: Follow S&S recs PPX: DVT - AC already on board for Afib GI - Not indicated Dispo: Continue M/S Case discussed with Dr. Jes Boothe, DO - IM PGY-3 <Horacio Boothe - Last Filed: 03/07/19 12:54> - Note Progress Note: Seen and examined; please see resident note for further discussion. Agree with their note including assessment and plan as outlined aside from as supplemented myself. Independently reviewed and verified all kelsey historical and PE findings as well as labs and imaging. Discussed at length with resident and consulting services. Aside from above no overnight events indicated; no apparent seizure activity but conversation with the family yields silent seizures as the underlying historical features. Ate 50% meal tray yesterday and as per resident today. 10 sys ROS couldn't be reliably completed due to underlying cognative issues with chronic illness VS, labs, imaging reviewed NAD AAOx1-2 resting in bed; debatable capacity and would need HCP or 2PC for procedure. Frail appearing but not cachectic or toxic. NC AT EOMI PERRLA; swallow eval pending formally RRR s1/2 Lungs CTAB, w/ sym exp NT ND +BS CN2-12 wnl, no fnd Normal mood, appropriate behavior; not agitated, limited insight due to underlying dementia. No new rashes or skin breakdown noted Trachea midline without lymphadenopathy A/P: Patient presents from SNF with complex medical history as an initial admission to [facility]. Would like to clarify some parts of history (IE his presenting signs, especially given nonexressive nature of seizures, limited communication, and DNR /I should SE occurr at any point now or after DC). He is here due to poor PO intake and for evaluation of Failure to Thrive and potential for PEG tube placement. He has a poor apparent swallow effort and a previously noted atypical speech pattern that indicated swallow evaluation with Mrs. Holcomb as well. He is confirmed as DNR/I. He is on eliquis which will need to be held should PEG be placed; would likely do heparin drip with close PTT monitoring and obtain guidance regarding when to hold. Continue other home medications and montior on the med surg floor. Nursing noted a concern about a low apparent pressure but he has been trending at this level through the weekend and is asymptomatic. Problems include: -Suspected Failure to Thrive/Poor PO Intake *Followup prealbumin, PT consult, Nutrition consult. Swallow eval given aforemntioned concerns to r/o mechanical issue. Family would opt for PEG should calorie counting endorse need (or underlying [facility] probelm limiting PO). -Dementia without behavioral disturbance *If agitated would redirect. Avoid BZDs and would opt for haldol or seroquel if needed for sedation (FU QTc). Lacks capacity and would require HCP to consent. DNR/I. -S/P CVA *Reconcile and continue appropriate home medications. Confirm records from OSH. -Seizure history *Seizure precautions, continue home meds. Confirm records from OSH. -Hx HTN *Controlled, continue home medications. -Hx HLD *FU OP FLP Overall prognosis is poor given comorbid conditions in a global sense but he is not acutely toxic and this would be a chronic observation. FU calorie count; if indicated will intiiate heparin and plan for PEG. DNR/I <Sunil Andre - Last Filed: 03/07/19 22:35>
[2019-03-07] MEDS: ATORVASTATIN CA 20 MG TABLET (FP) PO SCH (22:54)
[2019-03-08] MEDS ORDERED: DEXTROSE 50%-WATER - 25 GM/50 ML VIAL IVPUSH ONE (06:14)
[2019-03-08 08:33] LABS: HEMATOCRIT 35.6 % (35.4-49); HEMOGLOBIN 12.1 GM/dL (11.7-16.9); MCH 31.5 pg (25.7-33.7); MEAN CELL VOLUME 92.7 fl (80-96); MEAN PLT VOLUME 7.3 fl (7.5-11.1); PLATELET COUNT 161 K/MM3 (134-434); RBC 3.85 M/mm3 (4.00-5.60); RDW 15.3 % (11.9-15.9); WHITE BLOOD COUNT 7.6 K/mm3 (4.0-10.0)
[2019-03-08 09:04] LABS: BLOOD UREA NITROGEN 7.4 mg/dL (7-18); CALCIUM 8.1 mg/dL (8.5-10.1); CREATININE 0.3 mg/dL (0.55-1.3); MAGNESIUM 1.9 mg/dL (1.8-2.4); POTASSIUM 3.8 mmol/L (3.5-5.1)
[2019-03-08] MEDS ORDERED: PT OWN MED DRAWER 7, Y5N ONE ×2 (09:18→20:58)
[2019-03-08] MEDS: levETIRAcetam 500 MG/5 ML ORAL SOLUTION (UNIT-DOSE CUPS) PO SCH ×2 (09:30→22:52)
[2019-03-08] MEDS: SENNOSIDES 8.6MG TABLET (FP) PO SCH ×2 (09:31→22:50)
[2019-03-08] MEDS: amLODIPine BESYLATE 5 MG TABLET (FP) PO SCH (09:31)
[2019-03-08] MEDS: MULTIVITAMINS (DAILY MVI) TABLET (FP) PO SCH (09:31)
[2019-03-08] MEDS: VALPROATE SODIUM 250 MG/5 ML UNIT DOSE CUP PO SCH ×2 (09:39→22:51)
[2019-03-08] MEDS ORDERED: HEPARIN NA (PORCINE) 5,000 UNITS/ML 1ML VIAL IVPUSH PRN (09:54)
[2019-03-08] MEDS: HEPARIN - 25,000 UNIT in SODIUM CHLORIDE 495 ML IV SCH (11:11)
[2019-03-08] MEDS: HEPARIN NA (PORCINE) 5,000 UNITS/ML 1ML VIAL IVPUSH PRN (13:11)
--- NOTE | 2019-03-08 15:00 | PN ---
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 Puree/thin liquid trials recommended.
--- NOTE | 2019-03-08 16:30 | PN ---
Progress Note (short form) - Note Progress Note: HPI: Limited due to clinical condition. Pt without pain or complaints today. Vital Signs Temperature 97.2 F L 03/08/19 10:47 Pulse Rate 84 03/08/19 10:47 Respiratory Rate 19 03/08/19 10:47 Blood Pressure 116/66 03/08/19 10:47 O2 Sat by Pulse Oximetry (%) 99 03/07/19 21:00 PE: Gen: : Thin-appearing, NAD, awake, alert, oriented to self HEENT: NC/AT, bitemporal wasting noted, HAYLEY, sclera anicteric, MMM Lung: CTA b/l no wheezes or rales CARD: RRR no murmurs ABD: Soft, Nt/ND, normoactive BS Neuro: R-sided weakness in resistance (baseline) EXT: no edema, pulses b/l intact CBC, BMP 03/08/19 07:00 03/08/19 07:00 03/06/19 07:20 Prealbumin 13.4 L Microbiology 03/04/19 07:00 Urine - Urine - Catheterized Urine Culture - Final NO GROWTH OBTAINED Active Medications Acetaminophen (Tylenol -) 325 mg PO Q4H PRN PRN Reason: PAIN Last Admin: 03/06/19 10:36 Dose: 325 mg Amlodipine Besylate (Norvasc -) 5 mg PO DAILY [facility] Last Admin: 03/08/19 09:31 Dose: 5 mg Atorvastatin Calcium (Lipitor -) 20 mg PO HS [facility] Last Admin: 03/07/19 22:54 Dose: 20 mg Heparin Sodium (Porcine) (Heparin -) 1,000 unit IVPUSH PRN PRN PRN Reason: Heparin Heparin Sodium (Porcine) (Heparin -) 5,000 unit IVPUSH PRN PRN PRN Reason: Heparin Last Admin: 03/08/19 13:11 Dose: 5,000 unit Heparin Sodium (Porcine) 25, (000 unit/ Sodium Chloride) 500 mls @ 16 mls/hr IV TITR [facility]; Protocol Last Admin: 03/08/19 11:11 Dose: 800 unit/hr, 16 mls/hr Levetiracetam (Keppra Oral Solution -) 1,000 mg PO BID [facility] Last Admin: 03/08/19 09:30 Dose: 1,000 mg Multivitamins/Minerals/Vitamin C (Tab-A-Vit -) 1 tab PO DAILY [facility] Last Admin: 03/08/19 09:31 Dose: 1 tab Senna (Senna -) 1 tab PO BID [facility] Last Admin: 03/08/19 09:31 Dose: 1 tab Valproate Sodium (Depakene -) 500 mg PO BID [facility] Last Admin: 03/08/19 09:39 Dose: 500 mg Assessment and Plan: Failure to Thrive History of dementia Seizure history s/p CVA Atrial fibrillation, rate controlled Hx of HTN Hx of HLD -MBS reviewed; pt still eating <50% of daily meals --Discussed with and pt to have PEG tube as planned --Last dose of Eliquis 02/04 10am --Heparin gtt started due to CHADS score 5. Can stop overnight prior to PEG on Wednesday --Prep needed tentatively night --Prealbumin 13.4 noted --Continue home seizure medications: Keppra 1gm BID Valproate 500mg BID --Obtain records from [facility] as noted to have nonconvulsive seizures --Monitor HR; currently rate controlled --Continue Norvasc 5mg qdaily for HTN FEN: Fluids: None Electrolyte abnormalities: None Nutrition: Follow S&S recs PPX: DVT - AC already on board for Afib GI - Not indicated Dispo: Continue M/S Case discussed with Dr. Jes Boothe, DO - IM PGY-3 <Horacio Boothe - Last Filed: 03/08/19 16:25> - Note Progress Note: Seen and examined; please see resident note for further discussion. Agree with their note including assessment and plan as outlined aside from as supplemented myself. Independently reviewed and verified all kelsey historical and PE findings as well as labs and imaging. Discussed at length with resident and consulting services. Aside from above no overnight events indicated; no apparent seizure activity but conversation with the family yields silent seizures as the underlying historical features. Ate 50% meal tray yesterday and as per resident today. 10 sys ROS couldn't be reliably completed due to underlying cognative issues with chronic illness VS, labs, imaging reviewed NAD AAOx1-2 resting in bed; debatable capacity and would need HCP or 2PC for procedure. Frail appearing but not cachectic or toxic. NC AT EOMI PERRLA; swallow eval pending formally RRR s1/2 Lungs CTAB, w/ sym exp NT ND +BS CN2-12 wnl, no fnd Normal mood, appropriate behavior; not agitated, limited insight due to underlying dementia. No new rashes or skin breakdown noted Trachea midline without lymphadenopathy A/P: Patient presents from SNF with complex medical history as an initial admission to [facility]. Would like to clarify some parts of history (IE his presenting signs, especially given nonexressive nature of seizures, limited communication, and DNR /I should SE occurr at any point now or after DC). He is here due to poor PO intake and for evaluation of Failure to Thrive and potential for PEG tube placement. He has a poor apparent swallow effort and a previously noted atypical speech pattern that indicated swallow evaluation with Mrs. Holcomb as well. He is confirmed as DNR/I. He is on eliquis which will need to be held should PEG be placed; would likely do heparin drip with close PTT monitoring and obtain guidance regarding when to hold. Continue other home medications and montior on the med surg floor. Nursing noted a concern about a low apparent pressure but he has been trending at this level through the weekend and is asymptomatic. Problems include: -Suspected Failure to Thrive/Poor PO Intake *Followup prealbumin, PT consult, Nutrition consult. Swallow eval given aforemntioned concerns to r/o mechanical issue. Family would opt for PEG should calorie counting endorse need (or underlying [facility] probelm limiting PO). -Dementia without behavioral disturbance *If agitated would redirect. Avoid BZDs and would opt for haldol or seroquel if needed for sedation (FU QTc). Lacks capacity and would require HCP to consent. DNR/I. -S/P CVA *Reconcile and continue appropriate home medications. Confirm records from OSH. -Seizure history *Seizure precautions, continue home meds. Confirm records from OSH. -Hx HTN *Controlled, continue home medications. -Hx HLD *FU OP FLP Overall prognosis is poor given comorbid conditions in a global sense but he is not acutely toxic and this would be a chronic observation. FU calorie count; if indicated will intiiate heparin and plan for PEG. DNR/I <Sunil Andre - Last Filed: 03/10/19 08:19>
[2019-03-08] MEDS ORDERED: INSULIN (NOVOLOG) ASPART 100 UNITS/ML 10ML VIAL ONE (21:17)
[2019-03-08] MEDS: ATORVASTATIN CA 20 MG TABLET (FP) PO SCH (22:50)
[2019-03-09 01:00] LABS: INR 1.23 (0.83-1.09); PROTHROMBIN TIME (PATIENT) 14.5 SEC (9.7-13.0)
[2019-03-09 01:02] LABS: ACTIVATED PTT 24.5 SECONDS (25.2-36.5)
[2019-03-09] MEDS: HEPARIN NA (PORCINE) 5,000 UNITS/ML 1ML VIAL IVPUSH PRN (01:33)
[2019-03-09] MEDS ORDERED: PT OWN MED DRAWER 7, Y5N ONE (08:51)
[2019-03-09] MEDS: levETIRAcetam 500 MG/5 ML ORAL SOLUTION (UNIT-DOSE CUPS) PO SCH ×2 (09:15→22:18)
[2019-03-09] MEDS: amLODIPine BESYLATE 5 MG TABLET (FP) PO SCH (09:15)
[2019-03-09] MEDS: SENNOSIDES 8.6MG TABLET (FP) PO SCH ×2 (09:15→22:19)
[2019-03-09] MEDS: VALPROATE SODIUM 250 MG/5 ML UNIT DOSE CUP PO SCH ×2 (09:15→22:19)
[2019-03-09] MEDS: MULTIVITAMINS (DAILY MVI) TABLET (FP) PO SCH (09:15)
[2019-03-09 09:24] LABS: INR 1.28 (0.83-1.09); PROTHROMBIN TIME (PATIENT) 15.2 SEC (9.7-13.0)
[2019-03-09 09:27] LABS: ACTIVATED PTT 79.2 SECONDS (25.2-36.5)
--- NOTE | 2019-03-09 12:04 | PN ---
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 Plan is for PEG consistency of PO intake,hydration, meds. Suggest continue po intake to maintain swallowing function, with good potential for continued improvement in swallowing function and increased po intake. Consider bolus feeding after meals, if insufficient PO acceptance, with goal to use only to supplement. Speech/swallowing tx to continue upon d/c.
[2019-03-09] MEDS: HEPARIN - 25,000 UNIT in SODIUM CHLORIDE 495 ML IV SCH ×2 (12:13→12:15)
--- NOTE | 2019-03-09 20:52 | PN ---
Addendum entered and electronically signed by Horacio Boothe, RESIDENT 03/09/19 23:21: Multiple attempts (RNs, myself) for NGT placement failed. All attempts with different size tubing down to 14Fr. Minimal epistaxis noted after my attempt which caused me to terminate my attempts. Epistaxis resolved prior to leaving room, none noted in posterior oropharynx at that time. Will also need CT A/P overnight for anatomical visualization per IR team. Original Note: Progress Note (short form) - Note Progress Note: HPI: Limited due to clinical condition. Pt without pain, nonverbal today Vital Signs Temperature 97.2 F L 03/08/19 10:47 Pulse Rate 84 03/08/19 10:47 Respiratory Rate 19 03/08/19 10:47 Blood Pressure 116/66 03/08/19 10:47 O2 Sat by Pulse Oximetry (%) 99 03/07/19 21:00 PE: Gen: Thin-appearing, NAD, awake, alert, nonverbal today HEENT: NC/AT, HAYLEY, sclera anicteric, MMM Lung: CTA b/l no wheezes or rales CARD: RRR no murmurs ABD: Soft, Nt/ND, normoactive BS Neuro: R-sided weakness in resistance (baseline) EXT: no edema, pulses b/l intact CBC, BMP 03/08/19 07:00 03/08/19 07:00 03/06/19 07:20 Prealbumin 13.4 L Microbiology 03/04/19 07:00 Urine - Urine - Catheterized Urine Culture - Final NO GROWTH OBTAINED Active Medications Acetaminophen (Tylenol -) 325 mg PO Q4H PRN PRN Reason: PAIN Last Admin: 03/06/19 10:36 Dose: 325 mg Amlodipine Besylate (Norvasc -) 5 mg PO DAILY [facility] Last Admin: 03/08/19 09:31 Dose: 5 mg Atorvastatin Calcium (Lipitor -) 20 mg PO HS [facility] Last Admin: 03/07/19 22:54 Dose: 20 mg Heparin Sodium (Porcine) (Heparin -) 1,000 unit IVPUSH PRN PRN PRN Reason: Heparin Heparin Sodium (Porcine) (Heparin -) 5,000 unit IVPUSH PRN PRN PRN Reason: Heparin Last Admin: 03/08/19 13:11 Dose: 5,000 unit Heparin Sodium (Porcine) 25, (000 unit/ Sodium Chloride) 500 mls @ 16 mls/hr IV TITR [facility]; Protocol Last Admin: 03/08/19 11:11 Dose: 800 unit/hr, 16 mls/hr Levetiracetam (Keppra Oral Solution -) 1,000 mg PO BID [facility] Last Admin: 03/08/19 09:30 Dose: 1,000 mg Multivitamins/Minerals/Vitamin C (Tab-A-Vit -) 1 tab PO DAILY [facility] Last Admin: 03/08/19 09:31 Dose: 1 tab Senna (Senna -) 1 tab PO BID [facility] Last Admin: 03/08/19 09:31 Dose: 1 tab Valproate Sodium (Depakene -) 500 mg PO BID [facility] Last Admin: 03/08/19 09:39 Dose: 500 mg Assessment and Plan: Failure to Thrive History of dementia Seizure history s/p CVA Atrial fibrillation, rate controlled Hx of HTN Hx of HLD --Pt for tentative PEG tube tomorrow --NGT insertion for contrast media --NPO after midnight except above --Stop Heparin gtt at midnight tonight (Last dose of Eliquis 02/04 10am) --Abdominal CT ordered by IR for initial imaging --Discussed with and pt to have PEG tube as planned --Prealbumin 13.4 noted --Continue home seizure medications: Keppra 1gm BID Valproate 500mg BID --Can switch to IV formulations (1:1 conversion) with NPO status tomorrow AM --Monitor HR; currently rate controlled --Continue Norvasc 5mg qdaily for HTN FEN: Fluids: None Electrolyte abnormalities: None Nutrition: NPO @ midnight PPX: DVT - AC already on board for Afib GI - Not indicated Dispo: Continue M/S Case discussed with Dr. Jes Boothe, DO - IM PGY-3 <Horacio Boothe - Last Filed: 03/09/19 23:18> - Note Progress Note: Seen and examined; please see resident note for further discussion. Agree with their note including assessment and plan as outlined aside from as supplemented myself. Independently reviewed and verified all kelsey historical and PE findings as well as labs and imaging. Discussed at length with resident and consulting services. Aside from above no overnight events indicated; no apparent seizure activity but conversation with the family yields silent seizures as the underlying historical features. Ate 50% meal tray yesterday and as per resident today. 10 sys ROS couldn't be reliably completed due to underlying cognative issues with chronic illness VS, labs, imaging reviewed NAD AAOx1-2 resting in bed; debatable capacity and would need HCP or 2PC for procedure. Frail appearing but not cachectic or toxic. NC AT EOMI PERRLA; swallow eval pending formally RRR s1/2 Lungs CTAB, w/ sym exp NT ND +BS CN2-12 wnl, no fnd Normal mood, appropriate behavior; not agitated, limited insight due to underlying dementia. No new rashes or skin breakdown noted Trachea midline without lymphadenopathy A/P: Going for PEG tomorrow; instructions expertly outlined in resident note. Problems include: -Suspected Failure to Thrive/Poor PO Intake -Dementia without behavioral disturbance *If agitated would redirect. Avoid BZDs and would opt for haldol or seroquel if needed for sedation (FU QTc). HCP provided consent for PEG. -S/P CVA *Reconcile and continue appropriate home medications. Confirm records from OSH. -Seizure history *Seizure precautions, continue home meds. Confirm records from OSH. -Hx HTN *Controlled, continue home medications. -Hx HLD *FU OP FLP DNR/I If stable after procedure will plan for DC if cleared with the proceduralist and no evident post-procedural complications. <Sunil Andre - Last Filed: 03/10/19 08:21>
[2019-03-09] MEDS: ATORVASTATIN CA 20 MG TABLET (FP) PO SCH (22:19)
[2019-03-09] MEDS: ACETAMINOPHEN 325 MG TABLET (FP) PO PRN (22:36)
[2019-03-10] MEDS ORDERED: DEXTROSE 50%-WATER - 25 GM/50 ML VIAL IVPUSH ONE (05:51)
[2019-03-10] MEDS ORDERED: DEXTROSE 50%-WATER 25 GM/50 ML DISP.SYRIN ONE (05:55)
[2019-03-10 07:42] LABS: HEMATOCRIT 30.7 % (35.4-49); MCH 30.7 pg (25.7-33.7); MCHC 32.5 g/dl (32.0-35.9); MEAN CELL VOLUME 94.7 fl (80-96); MEAN PLT VOLUME 6.9 fl (7.5-11.1); PLATELET COUNT 133 K/MM3 (134-434); RBC 3.24 M/mm3 (4.00-5.60); WHITE BLOOD COUNT 5.4 K/mm3 (4.0-10.0)
[2019-03-10 09:14] LABS: BLOOD UREA NITROGEN 14.1 mg/dL (7-18); CREATININE 0.4 mg/dL (0.55-1.3); POTASSIUM 3.4 mmol/L (3.5-5.1)
[2019-03-10 09:15] LABS: CALCIUM 7.8 mg/dL (8.5-10.1)
[2019-03-10] MEDS ORDERED: PT OWN MED DRAWER 7, Y5N ONE ×2 (09:48→23:37)
[2019-03-10] MEDS: levETIRAcetam 500 MG/5 ML ORAL SOLUTION (UNIT-DOSE CUPS) PO SCH ×2 (09:50→23:39)
[2019-03-10] MEDS: amLODIPine BESYLATE 5 MG TABLET (FP) PO SCH (09:50)
[2019-03-10] MEDS: SENNOSIDES 8.6MG TABLET (FP) PO SCH ×2 (09:50→23:40)
[2019-03-10] MEDS: MULTIVITAMINS (DAILY MVI) TABLET (FP) PO SCH (09:51)
[2019-03-10] MEDS: VALPROATE SODIUM 250 MG/5 ML UNIT DOSE CUP PO SCH ×2 (09:51→23:40)
--- NOTE | 2019-03-10 14:16 | PN ---
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 Pending peg insertion for pt to receive consistent nutrition/hydration/ medication.
--- NOTE | 2019-03-10 19:36 | PN ---
Progress Note (short form) - Note Progress Note: HPI: Unable to get NGT in morning today. Pt comfortable without distress. No events overnight. Vital Signs Temperature 98.1 F 03/10/19 17:01 Pulse Rate 78 03/10/19 17:01 Respiratory Rate 20 03/10/19 17:01 Blood Pressure 118/67 03/10/19 17:01 O2 Sat by Pulse Oximetry (%) 99 03/10/19 09:00 PE: Gen: Thin-appearing, NAD, awake, alert, nonverbal today HEENT: NC/AT, HAYLEY, sclera anicteric, MMM, nares without any blood, posterior oropharynx without blood seen Lung: CTA b/l no wheezes or rales CARD: RRR no murmurs ABD: Soft, Nt/ND, normoactive BS Neuro: R-sided weakness in resistance (baseline) EXT: no edema, pulses b/l intact CBC, BMP 03/10/19 06:45 03/10/19 06:45 03/06/19 07:20 Prealbumin 13.4 L Microbiology 03/04/19 07:00 Urine - Urine - Catheterized Urine Culture - Final NO GROWTH OBTAINED Active Medications Acetaminophen (Tylenol -) 325 mg PO Q4H PRN PRN Reason: PAIN Last Admin: 03/06/19 10:36 Dose: 325 mg Amlodipine Besylate (Norvasc -) 5 mg PO DAILY [facility] Last Admin: 03/08/19 09:31 Dose: 5 mg Atorvastatin Calcium (Lipitor -) 20 mg PO HS [facility] Last Admin: 03/07/19 22:54 Dose: 20 mg Heparin Sodium (Porcine) (Heparin -) 1,000 unit IVPUSH PRN PRN PRN Reason: Heparin Heparin Sodium (Porcine) (Heparin -) 5,000 unit IVPUSH PRN PRN PRN Reason: Heparin Last Admin: 03/08/19 13:11 Dose: 5,000 unit Heparin Sodium (Porcine) 25, (000 unit/ Sodium Chloride) 500 mls @ 16 mls/hr IV TITR [facility]; Protocol Last Admin: 03/08/19 11:11 Dose: 800 unit/hr, 16 mls/hr Levetiracetam (Keppra Oral Solution -) 1,000 mg PO BID [facility] Last Admin: 03/08/19 09:30 Dose: 1,000 mg Multivitamins/Minerals/Vitamin C (Tab-A-Vit -) 1 tab PO DAILY [facility] Last Admin: 03/08/19 09:31 Dose: 1 tab Senna (Senna -) 1 tab PO BID [facility] Last Admin: 03/08/19 09:31 Dose: 1 tab Valproate Sodium (Depakene -) 500 mg PO BID [facility] Last Admin: 03/08/19 09:39 Dose: 500 mg Assessment and Plan: Failure to Thrive History of dementia Seizure history s/p CVA Atrial fibrillation, rate controlled Hx of HTN Hx of HLD --Unable to prep patient --Discussed with IR; will obtain abdominal CT and decide technique based on anatomy --CT reviewed; will need NGT for contrast vs. ingesting contrast and NPO Wednesday for PEG Wednesday --Remain off heparin gtt currently so placement of NGT can be uncomplicated --Restart when able due to Afib --Discussed with family members about plans today --Prealbumin 13.4 noted --Continue home seizure medications: Keppra 1gm BID Valproate 500mg BID --Can switch to IV formulations (1:1 conversion) for procedure when performed --Monitor HR; currently rate controlled --Continue Norvasc 5mg qdaily for HTN FEN: Fluids: None Electrolyte abnormalities: None Nutrition: Resume dysphagia for some nutrition PPX: DVT - AC already on board for Afib GI - Not indicated Dispo: Continue M/S Case discussed with Dr. Jes Boothe, DO - IM PGY-3 <Horacio Boothe - Last Filed: 03/10/19 19:32> - Note Progress Note: Seen and examined; please see resident note for further discussion. Agree with their note including assessment and plan as outlined aside from as supplemented myself. Independently reviewed and verified all kelsey historical and PE findings as well as labs and imaging. Discussed at length with resident and consulting services. The patient is doing well but was unable to have NGT inserted for dye for procedure; discussing with IR if it will have to be postponed. Plan remains the same should it not be. 10 sys ROS couldn't be reliably completed due to underlying cognative issues with chronic illness VS, labs, imaging reviewed NAD AAOx1-2 resting in bed; debatable capacity and would need HCP or 2PC for procedure. Frail appearing but not cachectic or toxic. NC AT EOMI PERRLA; swallow eval pending formally RRR s1/2 Lungs CTAB, w/ sym exp NT ND +BS CN2-12 wnl, no fnd Normal mood, appropriate behavior; not agitated, limited insight due to underlying dementia. No new rashes or skin breakdown noted Trachea midline without lymphadenopathy A/P: Going for PEG tomorrow; instructions expertly outlined in resident note. Problems include: -Suspected Failure to Thrive/Poor PO Intake -Dementia without behavioral disturbance *If agitated would redirect. Avoid BZDs and would opt for haldol or seroquel if needed for sedation (FU QTc). HCP provided consent for PEG. -S/P CVA *Reconcile and continue appropriate home medications. Confirm records from OSH. -Seizure history *Seizure precautions, continue home meds. Confirm records from OSH. -Hx HTN *Controlled, continue home medications. -Hx HLD *FU OP FLP DNR/I If stable after procedure will plan for DC if cleared with the proceduralist and no evident post-procedural complication <Sunil Andre - Last Filed: 03/11/19 17:58>
[2019-03-10] MEDS: ATORVASTATIN CA 20 MG TABLET (FP) PO SCH (23:40)
[2019-03-11 08:06] LABS: HEMATOCRIT 34.4 % (35.4-49); HEMOGLOBIN 11.4 GM/dL (11.7-16.9); MCHC 33.1 g/dl (32.0-35.9); MEAN CELL VOLUME 93.7 fl (80-96); MEAN PLT VOLUME 7.1 fl (7.5-11.1); PLATELET COUNT 147 K/MM3 (134-434); RBC 3.68 M/mm3 (4.00-5.60); RDW 15.2 % (11.9-15.9)
[2019-03-11 08:18] LABS: BLOOD UREA NITROGEN 12.3 mg/dL (7-18); CALCIUM 7.9 mg/dL (8.5-10.1); CREATININE 0.3 mg/dL (0.55-1.3); MAGNESIUM 2.2 mg/dL (1.8-2.4); POTASSIUM 3.5 mmol/L (3.5-5.1)
[2019-03-11] MEDS ORDERED: PT OWN MED DRAWER 7, Y5N ONE ×2 (09:41→21:11)
[2019-03-11] MEDS: amLODIPine BESYLATE 5 MG TABLET (FP) PO SCH (09:43)
[2019-03-11] MEDS: levETIRAcetam 500 MG/5 ML ORAL SOLUTION (UNIT-DOSE CUPS) PO SCH ×2 (09:43→21:36)
[2019-03-11] MEDS: VALPROATE SODIUM 250 MG/5 ML UNIT DOSE CUP PO SCH ×2 (09:43→21:36)
[2019-03-11] MEDS: SENNOSIDES 8.6MG TABLET (FP) PO SCH ×2 (09:43→21:36)
[2019-03-11] MEDS: MULTIVITAMINS (DAILY MVI) TABLET (FP) PO SCH (09:43)
--- NOTE | 2019-03-11 12:16 | PN ---
Progress Note (short form) - Note Progress Note: [pt is comfortable and has no fever or chills had unsuccessful attempt of ngt placement vs Vital Signs Period Temp Pulse Resp BP Sys/Palacios Pulse Ox Last 24 Hr 97.5 F-98.1 F 74-79 18-20 106-132/63-76 98 Gen: Thin-appearing, NAD, awake, alert, nonverbal today HEENT: NC/AT, HAYLEY, sclera anicteric, MMM, nares without any blood, posterior oropharynx without blood seen Lung: CTA b/l no wheezes or rales CARD: RRR no murmurs ABD: Soft, Nt/ND, normoactive BS Neuro: R-sided weakness in resistance (baseline) EXT: no edema, pulses b/l intact CBC, BMP 03/11/19 06:30 03/11/19 06:30 Current Medications Acetaminophen (Tylenol -) 325 mg PO Q4H PRN PRN Reason: PAIN Last Admin: 03/09/19 22:36 Dose: 325 mg Amlodipine Besylate (Norvasc -) 5 mg PO DAILY [facility] Last Admin: 03/11/19 09:43 Dose: 5 mg Atorvastatin Calcium (Lipitor -) 20 mg PO HS [facility] Last Admin: 03/10/19 23:40 Dose: 20 mg Dextrose/Sodium Chloride (D5-1/2ns -) 1,000 mls @ 83 mls/hr IV ASDIR [facility] Levetiracetam (Keppra Oral Solution -) 1,000 mg PO BID [facility] Last Admin: 03/11/19 09:43 Dose: 1,000 mg Multivitamins/Minerals/Vitamin C (Tab-A-Vit -) 1 tab PO DAILY [facility] Last Admin: 03/11/19 09:43 Dose: 1 tab Senna (Senna -) 1 tab PO BID [facility] Last Admin: 03/11/19 09:43 Dose: 1 tab Valproate Sodium (Depakene -) 500 mg PO BID [facility] Last Admin: 03/11/19 09:43 Dose: 500 mg Assessment and Plan: Failure to Thrive History of dementia Seizure history s/p CVA Atrial fibrillation, rate controlled Hx of HTN Hx of HLD --Discussed with IR; will obtain abdominal CT and decide technique based on anatomy --CT reviewed; will need NGT for contrast vs. ingesting contrast and NPO Lewis night for PEG Wednesday --Remain off heparin gtt currently so placement of NGT can be uncomplicated --Restart when able due to Afib --Discussed with family members about plans today and will start on fluids for some calories and hydration. --Prealbumin 13.4 noted --Continue home seizure medications: Keppra 1gm BID Valproate 500mg BID --Can switch to IV formulations (1:1 conversion) for procedure when performed --Monitor HR; currently rate controlled --Continue Norvasc 5mg qdaily for HTN FEN: Fluids: None Electrolyte abnormalities: None Nutrition: Resume dysphagia for some nutrition PPX: DVT - AC already on board for Afib GI - Not indicated Visit type - Emergency Visit Emergency Visit: Yes ED Registration Date: 03/03/19 Care time: The patient presented to the Emergency Department on the above date and was hospitalized for further evaluation of their emergent condition. - New Patient This patient is new to me today: Yes Date on this admission: 03/11/19 - Critical Care Critical Care patient: No - Discharge Referral Referred to [facility] No
[2019-03-11] MEDS: DEXTROSE 5%-0.45% SALINE 1,000 ML IV SCH (15:54)
[2019-03-11] MEDS ORDERED: ACETAMINOPHEN 325 MG TABLET (FP) PO PRN (20:36)
[2019-03-11] MEDS: ATORVASTATIN CA 20 MG TABLET (FP) PO SCH (21:36)
--- NOTE | 2019-03-12 12:18 | PN ---
Progress Note (short form) - Note Progress Note: [pt is comfortable and has no fever or chills had unsuccessful attempt of ngt placement Patient is up for PEG tube tomorrow he is off the heparin because of preoperative. He is on IV fluids for hydration and some calorie replacement. vs Vital Signs Period Temp Pulse Resp BP Sys/Palacios Pulse Ox Last 24 Hr 97.3 F-98.1 F 66-153 18-22 103-145/58-79 98 Gen: Thin-appearing, NAD, awake, alert, nonverbal today HEENT: NC/AT, HAYLEY, sclera anicteric, MMM, nares without any blood, posterior oropharynx without blood seen Lung: CTA b/l no wheezes or rales CARD: RRR no murmurs ABD: Soft, Nt/ND, normoactive BS Neuro: R-sided weakness in resistance (baseline) EXT: no edema, pulses b/l intact CBC, BMP 03/11/19 06:30 03/11/19 06:30 Assessment and Plan: Failure to Thrive History of dementia Seizure history s/p CVA Atrial fibrillation, rate controlled Hx of HTN Hx of HLD --Discussed with IR; will obtain abdominal CT and decide technique based on anatomy --CT reviewed; will need NGT for contrast vs. ingesting contrast and NPO Wednesday for PEG Wednesday --Remain off heparin gtt currently so placement of NGT can be uncomplicated --Restart when able due to Afib - on fluids for some calories and hydration. --Continue home seizure medications: Keppra 1gm BID Valproate 500mg BID --Can switch to IV formulations (1:1 conversion) for procedure when performed --Monitor HR; currently rate controlled --Continue Norvasc 5mg qdaily for HTN FEN: Fluids: None Electrolyte abnormalities: None Nutrition: Resume dysphagia for some nutrition PPX: DVT - AC already on board for Afib GI - Not indicated Visit type - Emergency Visit Emergency Visit: Yes ED Registration Date: 03/03/19 Care time: The patient presented to the Emergency Department on the above date and was hospitalized for further evaluation of their emergent condition. - New Patient This patient is new to me today: No - Critical Care Critical Care patient: No - Discharge Referral Referred to [facility] No
[2019-03-12] MEDS: levETIRAcetam 500 MG/5 ML ORAL SOLUTION (UNIT-DOSE CUPS) PO SCH ×2 (12:31→21:43)
[2019-03-12] MEDS: SENNOSIDES 8.6MG TABLET (FP) PO SCH ×2 (12:31→21:43)
[2019-03-12] MEDS: amLODIPine BESYLATE 5 MG TABLET (FP) PO SCH (12:31)
[2019-03-12] MEDS: MULTIVITAMINS (DAILY MVI) TABLET (FP) PO SCH (12:31)
[2019-03-12] MEDS: VALPROATE SODIUM 250 MG/5 ML UNIT DOSE CUP PO SCH ×2 (12:32→21:43)
[2019-03-12] MEDS: DEXTROSE 5%-0.45% SALINE 1,000 ML IV SCH ×2 (12:33→17:04)
[2019-03-12] MEDS: ATORVASTATIN CA 20 MG TABLET (FP) PO SCH (21:43)
[2019-03-13] MEDS ORDERED: PT OWN MED DRAWER 7, Y5N ONE ×3 (10:32→20:35)
[2019-03-13] MEDS: VALPROATE SODIUM 250 MG/5 ML UNIT DOSE CUP PO SCH ×2 (10:39→21:13)
[2019-03-13] MEDS: levETIRAcetam 500 MG/5 ML ORAL SOLUTION (UNIT-DOSE CUPS) PO SCH ×2 (10:39→21:13)
[2019-03-13] MEDS: amLODIPine BESYLATE 5 MG TABLET (FP) PO SCH (10:40)
[2019-03-13] MEDS: SENNOSIDES 8.6MG TABLET (FP) PO SCH ×2 (10:40→21:13)
[2019-03-13] MEDS: MULTIVITAMINS (DAILY MVI) TABLET (FP) PO SCH (10:40)
--- NOTE | 2019-03-13 18:27 | PN ---
Progress Note (short form) - Note Progress Note: Hospitalist Medicine Pt unable to verbally participate. Appears comfortable. Resting in bed. Numerous attempts to place NGT by staff, pt refusing. Placed by IR. Will receive contrast, AXR tomorrow and PEG tomorrow. Vitals 03/13/19 16:38 Temperature 99.4 F Pulse Rate 100 H Respiratory 20 Rate Blood Pressure 146/56 L Physical exam general: AAO x 0. visually tracks. non-verbal heent: NCAT, PERRLA, MMM neck: supple, tilted to R cardio: S1, s2, rrr. no r/m/g pulm: CTA b/l. poor inspiratory effort abdomen: nontender, nondistended ext: +mittens b/l. with heel guards b/l. no edema, contracted neuro: Staffing Account Manager 2-12 grossly intact however pt unable to participate in full neuro exam does not respond to commands Laboratory Tests 03/13/19 16:49 POC Glucometer 93 Assessment/Plan 73 y/o M [facility] on [facility] with H dementia, seizure disorder, past CVA, afib , constipation, HTN, HLD, dysphagia, and metabolic encephalopathy who presented for failure to thrive and is for PEG placement. #FTT -pt for PEG placement tomorrow by IR, placed NGT. will receive prep tonight -once placed and confirmed, can return to [place] -currently on d51/2 ns for nutrition, dysphagia puree diet. will be NPO for procedure #HTN-controlled -c/w norvasc #HLD -c/w lipitor #sz d/o -sz precautions -c/t elevate HOB -c/w keppra 1000mg PO BID, depakene 500mg PO BID #constipation -c/w senna #F/E/N D5 1/2 NS 83 cc/hr continue to follow lytes dysphagia puree diet - will be NPO after MN for procedure w/ NGT for contrast #PPX eliquis has been held; for PEG can restart after ANYA's for now #Dispo will need PEG placement tomorrow. then can be sent to [place]; will need to talk to SW <Nicole Chappell - Last Filed: 03/13/19 18:36> - Note Progress Note: Seen and examined; agree with above as documented in resident note aside from as supplemented by myself. I independently confirmed all historical and exam findings in addition to the labs and diagnostics. Discussed at length with the resident team and indicated consultants. Remains unable to provide ROS or subjective input. No events overnight. VS, labs, imaging, reviewed NAD, AAO, resting in bed HR wnl, s1/2 No fnd, remains at neuro baseline moving all 4 ext NT ND +BS No skin breakdown or rashes noted Trachea midline, no LN Not agitated, poor insight and judgement 2/2 clinical condition. A[facility]P: [facility] due to issues with ad\ vancement of NG tube with contrast. Will be going for procedure today. Consent obtained. Once oprocedure complete will resume eliquis and DC home. I note that the heparin ggt was discontinued over the weekend-will elucidate if IR request and when eliquis may resume. Overall can return to his place of residence once PEG inserted. Agree with problem list as outlined above DNR/I <Sunil Andre - Last Filed: 03/13/19 23:38>
[2019-03-13] MEDS: ATORVASTATIN CA 20 MG TABLET (FP) PO SCH (21:13)
[2019-03-13] MEDS: DEXTROSE 5%-0.45% SALINE 1,000 ML IV SCH (21:13)
[2019-03-14] MEDS ORDERED: PT OWN MED DRAWER 7, Y5N ONE ×3 (07:27→21:10)
[2019-03-14 09:32] LABS: BASO % 0.4 % (0-2.0); EOS % 1.1 % (0-4.5); HEMATOCRIT 38.2 % (35.4-49); HEMOGLOBIN 12.5 GM/dL (11.7-16.9); LYMPH % 16.9 % (8-40); MCH 30.7 pg (25.7-33.7); MCHC 32.7 g/dl (32.0-35.9); MEAN CELL VOLUME 93.8 fl (80-96); MEAN PLT VOLUME 8.2 fl (7.5-11.1); NEUT % 70.6 % (42.8-82.8); RBC 4.07 M/mm3 (4.00-5.60); RDW 16.2 % (11.9-15.9); WHITE BLOOD COUNT 9.2 K/mm3 (4.0-10.0)
[2019-03-14 09:40] LABS: BILIRUBIN,TOTAL 0.9 mg/dL (0.2-1); CALCIUM 7.8 mg/dL (8.5-10.1); CREATININE 0.3 mg/dL (0.55-1.3); MAGNESIUM 2.1 mg/dL (1.8-2.4); PHOSPHOROUS 2.4 mg/dL (2.5-4.9); TOT PROT 4.9 g/dl (6.4-8.2)
[2019-03-14 09:57] LABS: BLOOD UREA NITROGEN 2.4 mg/dL (7-18); POTASSIUM 2.7 mmol/L (3.5-5.1)
[2019-03-14] MEDS: VALPROATE SODIUM 250 MG/5 ML UNIT DOSE CUP PO SCH ×2 (10:12→22:34)
[2019-03-14] MEDS: levETIRAcetam 500 MG/5 ML ORAL SOLUTION (UNIT-DOSE CUPS) PO SCH ×2 (10:13→22:35)
[2019-03-14] MEDS: MULTIVITAMINS (DAILY MVI) TABLET (FP) PO SCH (10:13)
[2019-03-14] MEDS: amLODIPine BESYLATE 5 MG TABLET (FP) PO SCH (10:13)
[2019-03-14] MEDS: SENNOSIDES 8.6MG TABLET (FP) PO SCH ×2 (10:14→22:34)
--- NOTE | 2019-03-14 10:14 | PN ---
Teaching Attending Note Name of Resident: Nicole Chappell ATTENDING PHYSICIAN STATEMENT I saw and evaluated the patient. I reviewed the resident's note and discussed the case with the resident. I agree with the resident's findings and plan as documented. SUBJECTIVE: Patient is non-verbal. Appears comfortable. OBJECTIVE: Vital Signs Period Temp Pulse Resp BP Sys/Palacios Pulse Ox Last 24 Hr 97.9 F-99.4 F 73-100 16-20 105-151/56-87 100 HEART: S1S2, RRR LUNGS: Clear ABDOMEN: Soft, non-distended, normal BS EXTREMITIES: No edema Laboratory Results - last 24 hr 03/13/19 03/14/19 03/14/19 16:49 06:34 07:20 WBC 9.2 RBC 4.07 Hgb 12.5 Hct 38.2 MCV 93.8 MCH 30.7 MCHC 32.7 RDW 16.2 H Absolute Neuts (auto) 6.5 Neutrophils % 70.6 D Lymphocytes % 16.9 D Monocytes % 11.0 H Eosinophils % 1.1 Basophils % 0.4 Nucleated RBC % 0 Sodium Potassium Chloride Carbon Dioxide Anion Gap BUN Creatinine Est GFR (CKD-EPI)AfAm Est GFR (CKD-EPI)NonAf POC Glucometer 93 102 Random Glucose Calcium Phosphorus Magnesium Total Bilirubin AST ALT Alkaline Phosphatase Total Protein Albumin 03/14/19 07:20 WBC RBC Hgb Hct MCV MCH MCHC RDW Absolute Neuts (auto) Neutrophils % Lymphocytes % Monocytes % Eosinophils % Basophils % Nucleated RBC % Sodium 141 Potassium 2.7 L* Chloride 104 Carbon Dioxide 31 Anion Gap 7 L BUN 2.4 L* Creatinine 0.3 L Est GFR (CKD-EPI)AfAm 151.56 Est GFR (CKD-EPI)NonAf 130.77 POC Glucometer Random Glucose 94 Calcium 7.8 L Phosphorus 2.4 L Magnesium 2.1 Total Bilirubin 0.9 AST 19 ALT 15 Alkaline Phosphatase 95 Total Protein 4.9 L Albumin 2.0 L Current Medications Generic Name Dose Route Start Last Admin Trade Name Freq PRN Reason Stop Dose Admin Acetaminophen 650 mg 03/11/19 20:36 Tylenol - PO Q4H PRN PAIN Amlodipine Besylate 5 mg 03/04/19 10:00 03/14/19 10:13 Norvasc - PO 5 mg DAILY [facility]IS Administration Atorvastatin Calcium 20 mg 03/04/19 22:00 03/13/19 21:13 Lipitor - PO 20 mg HS [facility]IS Administration Dextrose/Sodium Chloride 1,000 mls @ 83 mls/hr 03/11/19 12:15 03/13/19 21:13 D5-1/2ns - IV 83 mls/hr ASDIR [facility]IS Administration Levetiracetam 1,000 mg 03/06/19 22:00 03/14/19 10:13 Keppra Oral Solution - PO 1,000 mg BID [facility]IS Administration Multivitamins/Minerals/Vitamin C 1 tab 03/04/19 10:00 03/14/19 10:13 Tab-A-Vit - PO 1 tab DAILY [facility] Administration Senna 1 tab 03/04/19 10:00 03/13/19 21:13 Senna - PO 1 tab BID [facility]IS Administration Valproate Sodium 500 mg 03/06/19 22:00 03/14/19 10:12 Depakene - PO 500 mg BID [facility]RIS Administration ASSESSMENT AND PLAN: This is a 73 year old man with a history of dementia, seizure disorder, CVA, atrial fib, constipation, HTN, hyperlipidemia, dysphagia who presented to the ED from [facility] for failure to thrive. 1. Failure to thrive - PEG placement by IR scheduled for today 2. HTN - Continue Norvasc 3. Hyperlipidemia - Continue Lipitor 4. Seizure disorder - Continue Keppra, Depakene 5. History of atrial fib - Eliquis on hold for PEG placement 6. History of CVA 7. Constipation - Continue Senna 8. Dementia 9. Disposition - Expect discharge to [facility] tomorrow
[2019-03-14] MEDS: DEXTROSE 5%-0.45% SALINE 1,000 ML IV SCH ×2 (10:19→13:33)
[2019-03-14] MEDS: KCL 10 MEQ IVPB 10 MEQ/100 ML INFUS.BAG IVPB SCH ×3 (10:39→15:38)
[2019-03-14 12:18] LABS: PLATELET ESTIMATE DECREASED
[2019-03-14 13:22] LABS: PLATELET COUNT 162 K/MM3 (134-434)
--- NOTE | 2019-03-14 18:08 | PN ---
Addendum entered and electronically signed by Nicole Chappell, RESIDENT 03/14/19 18 :19: d/t hypokalemia have also added 20meq KCl to current IVF received [id number] Kcl earlier will recheck K this PM and replete accordingly Original Note: Progress Note (short form) - Note Progress Note: Hospitalist Medicine Appears comfortable. Resting in bed. Received GT placement today. NGT attached to low wall suction. Vitals 03/14/19 16:58 Temperature 98.0 F Pulse Rate 60 Respiratory 17 Rate Blood Pressure 103/64 Physical exam general: AAO x 0. visually tracks. non-verbal. +NGT heent: NCAT, PERRLA, MMM neck: supple cardio: S1, s2, rrr. no r/m/g pulm: CTA b/l. poor inspiratory effort abdomen: nontender, nondistended. +GT placed ext: +mittens b/l. with heel guards b/l. no edema, contracted neuro: Tool Smith 2-12 grossly intact however pt unable to participate in full neuro exam Laboratory Tests 03/14/19 03/14/19 07:20 07:20 WBC 9.2 Hgb 12.5 Hct 38.2 Plt Count 162 Sodium 141 Potassium 2.7 L* Chloride 104 Carbon Dioxide 31 BUN 2.4 L* Creatinine 0.3 L Random Glucose 94 Assessment/Plan 73 y/o M Tresa on [facility] with H dementia, seizure disorder, past CVA, afib , constipation, HTN, HLD, dysphagia, and metabolic encephalopathy who presented for failure to thrive and is for PEG placement. #FTT -GT placed by IR today (03/14) -will get KUB tomorrow (03/15) to confirm placement, and subsequently start feeds -recommendations have been made by dietary -currently on d51/2 ns for nutrition -c/w NGT to LWS until GT placement confirmed tomorrow. can receive meds through NGT in meanwhile otherwise NPO #HTN-controlled -c/w norvasc #HLD -c/w lipitor #sz d/o -sz precautions -c/t elevate HOB -c/w keppra 1000mg PO BID, depakene 500mg PO BID #constipation -c/w senna #F/E/N D5 1/2 NS 83 cc/hr NGT low wall suction #PPX eliquis has still been held post GT . will restart on d/c ANYA's for now #Dispo if confirm placement GT and tolerating new diet tomorrow will be ready for d/c to [facility] SW
[2019-03-14] MEDS ORDERED: DEXTROSE 5%-0.45% SALINE 990 ML with POTASSIUM CHLORIDE 20 MEQ IVPB SCH (18:18)
[2019-03-14] MEDS: ATORVASTATIN CA 20 MG TABLET (FP) PO SCH (22:34)
[2019-03-14 22:35] LABS: BLOOD UREA NITROGEN 5.5 mg/dL (7-18); CALCIUM 7.6 mg/dL (8.5-10.1); CREATININE 0.3 mg/dL (0.55-1.3)
[2019-03-15] MEDS ORDERED: PT OWN MED DRAWER 7, Y5N ONE ×5 (07:10→20:45)
[2019-03-15] MEDS: amLODIPine BESYLATE 5 MG TABLET (FP) PO SCH (10:30)
[2019-03-15] MEDS: SENNOSIDES 8.6MG TABLET (FP) PO SCH ×2 (10:30→21:18)
[2019-03-15] MEDS: MULTIVITAMINS (DAILY MVI) TABLET (FP) PO SCH (10:30)
[2019-03-15] MEDS: VALPROATE SODIUM 250 MG/5 ML UNIT DOSE CUP PO SCH ×2 (10:31→21:18)
[2019-03-15] MEDS: levETIRAcetam 500 MG/5 ML ORAL SOLUTION (UNIT-DOSE CUPS) PO SCH ×2 (10:31→21:18)
[2019-03-15 11:04] LABS: BLOOD UREA NITROGEN 6.2 mg/dL (7-18); CALCIUM 8.4 mg/dL (8.5-10.1); CREATININE 0.4 mg/dL (0.55-1.3); MAGNESIUM 2.1 mg/dL (1.8-2.4); PHOSPHOROUS 2.8 mg/dL (2.5-4.9); POTASSIUM 5.1 mmol/L (3.5-5.1)
[2019-03-15 12:02] LABS: BASO % 0.1 % (0-2.0); EOS % 0.3 % (0-4.5); HEMATOCRIT 34.5 % (35.4-49); HEMOGLOBIN 11.5 GM/dL (11.7-16.9); LYMPH % 6.9 % (8-40); MCH 30.9 pg (25.7-33.7); MCHC 33.4 g/dl (32.0-35.9); MEAN CELL VOLUME 92.7 fl (80-96); MEAN PLT VOLUME 7.1 fl (7.5-11.1); MONO % 10.8 % (3.8-10.2); NEUT % 81.9 % (42.8-82.8); PLATELET COUNT 165 K/MM3 (134-434); RBC 3.73 M/mm3 (4.00-5.60); WHITE BLOOD COUNT 9.9 K/mm3 (4.0-10.0)
--- NOTE | 2019-03-15 14:22 | PN ---
Addendum entered and electronically signed by Nicole Chappell, RESIDENT 03/15/19 14 :37: have changed IVF: d51/2 NS with KCl to D51/2NS without. As K rising. c/w 75 cc/ hr Original Note: Progress Note (short form) - Note Progress Note: Hospitalist Medicine GT placement confirmed by imaging. Pt resting comfortably. +NGT in place until continues to tolerate feeds. Restarted this afternoon. Will trial for 24hrs and plan for return to [place] tomorrow. Vitals 03/15/19 09:45 Temperature 98.7 F Pulse Rate 99 H Respiratory 20 Rate Blood Pressure 156/88 Physical exam general: AAO x 0. visually tracks. non-verbal. +NGT: 150 cc christina d/c heent: NCAT, PERRLA, MMM neck: supple cardio: S1, s2, rrr. no r/m/g pulm: CTA b/l. poor inspiratory effort abdomen: nontender, nondistended. +GT placed. gauze intact, c/d/i ext: +mittens b/l. with heel guards b/l. no edema, contracted neuro: Golf Manager 2-12 grossly intact however pt unable to participate in full neuro exam Laboratory Tests 03/15/19 03/15/19 03/15/19 09:55 11:20 12:23 WBC 9.9 Hgb 11.5 L Hct 34.5 L Plt Count 165 Sodium 137 Potassium 5.1 Chloride 103 Carbon Dioxide 28 BUN 6.2 L Creatinine 0.4 L POC Glucometer 106 Assessment/Plan 73 y/o M Tresa on [facility] with H dementia, seizure disorder, past CVA, afib , constipation, HTN, HLD, dysphagia, and metabolic encephalopathy who presented for failure to thrive and is for PEG placement. #FTT -GT placed by IR (03/14) -KUB confirms placement (03/15), started on TF this afternoon (03/15) -will trial for 24hrs, to reach goal feed rate -if no adverse event, will d/c to [place] tomorrow. -will taper rate of d51/2 ns nutrition -NGT to be kept for 24 hrs until GT feeding trial complete #HTN-controlled -c/w norvasc #HLD -c/w lipitor #sz d/o -sz precautions -c/t elevate HOB -c/w keppra 1000mg PO BID, depakene 500mg PO BID #constipation -c/w senna #F/E/N D5 1/2 NS 75 cc/hr; will taper started on TF; continue NGT until GT feeding trial complete. #PPX eliquis has still been held post-GT . will restart on d/c in case tube malfnc and needs intervention ANYA's for now #Dispo c/w GT feeding trial anticipate d/c 24 hrs to [facility]
[2019-03-15] MEDS ORDERED: D5-1/2NS+20 MEQ KCL - 20 MEQ/1,000 ML INFUS.BAG IV SCH (14:32)
[2019-03-15] MEDS ORDERED: DEXTROSE 5%-0.45% SALINE 1,000 ML IV SCH (14:45)
--- NOTE | 2019-03-15 18:08 | PN ---
Teaching Attending Note Name of Resident: Nicole Chappell ATTENDING PHYSICIAN STATEMENT I saw and evaluated the patient. I reviewed the resident's note and discussed the case with the resident. I agree with the resident's findings and plan as documented. SUBJECTIVE: Appears comfortable. OBJECTIVE: Vital Signs Period Temp Pulse Resp BP Sys/Palacios Pulse Ox Last 24 Hr 98.5 F-99.3 F 84-99 20-20 122-156/70-88 93-98 HEART: S1S2, RRR LUNGS: Clear ABDOMEN: Soft, non-distended, normal BS, G-tube in place EXTREMITIES: No edema Laboratory Results - last 24 hr 03/14/19 03/14/19 03/15/19 21:45 22:33 05:58 WBC RBC Hgb Hct MCV MCH MCHC RDW Plt Count MPV Absolute Neuts (auto) Neutrophils % Lymphocytes % Monocytes % Eosinophils % Basophils % Nucleated RBC % Sodium 140 Potassium 4.0 Chloride 104 Carbon Dioxide 32 Anion Gap 3 L BUN 5.5 L Creatinine 0.3 L Est GFR (CKD-EPI)AfAm 151.56 Est GFR (CKD-EPI)NonAf 130.77 POC Glucometer 104 106 Random Glucose 102 Calcium 7.6 L Phosphorus Magnesium 03/15/19 03/15/19 03/15/19 09:55 11:20 12:23 WBC 9.9 RBC 3.73 L Hgb 11.5 L Hct 34.5 L MCV 92.7 MCH 30.9 MCHC 33.4 RDW 16.0 H Plt Count 165 MPV 7.1 L D Absolute Neuts (auto) 8.1 H Neutrophils % 81.9 Lymphocytes % 6.9 L D Monocytes % 10.8 H Eosinophils % 0.3 Basophils % 0.1 Nucleated RBC % 0 Sodium 137 Potassium 5.1 Chloride 103 Carbon Dioxide 28 Anion Gap 7 L BUN 6.2 L Creatinine 0.4 L Est GFR (CKD-EPI)AfAm 134.66 Est GFR (CKD-EPI)NonAf 116.19 POC Glucometer 106 Random Glucose 74 Calcium 8.4 L Phosphorus 2.8 Magnesium 2.1 Current Medications Generic Name Dose Route Start Last Admin Trade Name Freq PRN Reason Stop Dose Admin Acetaminophen 650 mg 03/11/19 20:36 Tylenol - PO Q4H PRN PAIN Amlodipine Besylate 5 mg 03/04/19 10:00 03/15/19 10:30 Norvasc - PO 5 mg DAILY CHRIS Administration Atorvastatin Calcium 20 mg 03/04/19 22:00 03/14/19 22:34 Lipitor - PO 20 mg HS CHRIS Administration Dextrose/Sodium Chloride 1,000 mls @ 75 mls/hr 03/15/19 14:45 D5-1/2ns - IV ASDIR CHRIS Levetiracetam 1,000 mg 03/06/19 22:00 03/15/19 10:31 Keppra Oral Solution - PO 1,000 mg BID CHRIS Administration Multivitamins/Minerals/Vitamin C 1 tab 03/04/19 10:00 03/15/19 10:30 Tab-A-Vit - PO 1 tab DAILY CHRIS Administration Senna 1 tab 03/04/19 10:00 03/15/19 10:30 Senna - PO 1 tab BID CHRIS Administration Valproate Sodium 500 mg 03/06/19 22:00 03/15/19 10:31 Depakene - PO 500 mg BID CHRIS Administration ASSESSMENT AND PLAN: This is a 73 year old man with a history of dementia, seizure disorder, CVA, atrial fib, constipation, HTN, hyperlipidemia, dysphagia who presented to the ED from [facility] for failure to thrive. 1. Failure to thrive - s/p G-tube placement by IR 03/14 - Jevity 1.5 feeds started 2. HTN - Continue Norvasc 3. Hyperlipidemia - Continue Lipitor 4. Seizure disorder - Continue Keppra, Depakene 5. History of atrial fib - Eliquis held for G-tube placement 6. History of CVA 7. Constipation - Continue Senna 8. Dementia 9. Disposition - Expect discharge to [facility] tomorrow
[2019-03-15] MEDS: ATORVASTATIN CA 20 MG TABLET (FP) PO SCH (21:19)
[2019-03-16] MEDS ORDERED: PT OWN MED DRAWER 7, Y5N ONE (10:50)
[2019-03-16] MEDS: VALPROATE SODIUM 250 MG/5 ML UNIT DOSE CUP PO SCH (10:52)
[2019-03-16] MEDS: levETIRAcetam 500 MG/5 ML ORAL SOLUTION (UNIT-DOSE CUPS) PO SCH (10:52)
[2019-03-16] MEDS: amLODIPine BESYLATE 5 MG TABLET (FP) PO SCH (10:53)
[2019-03-16] MEDS: MULTIVITAMINS (DAILY MVI) TABLET (FP) PO SCH (10:53)
[2019-03-16] MEDS: SENNOSIDES 8.6MG TABLET (FP) PO SCH (10:53)
--- NOTE | 2019-03-16 11:07 | PN ---
Teaching Attending Note Name of Resident: Nicole Chappell ATTENDING PHYSICIAN STATEMENT I saw and evaluated the patient. I reviewed the resident's note and discussed the case with the resident. I agree with the resident's findings and plan as documented. SUBJECTIVE: Patient appears comfortable. G-tube functioning. OBJECTIVE: Vital Signs Period Temp Pulse Resp BP Sys/Palacios Pulse Ox Last 24 Hr 97.2 F-99.2 F 76-102 18-20 117-140/60-82 93 HEART: S1S2, RRR LUNGS: Clear ABDOMEN: Soft, non-distended, normal BS, G-tube in place EXTREMITIES: No edema Laboratory Results - last 24 hr 03/15/19 03/15/19 03/15/19 11:20 12:23 21:08 WBC 9.9 RBC 3.73 L Hgb 11.5 L Hct 34.5 L MCV 92.7 MCH 30.9 MCHC 33.4 RDW 16.0 H Plt Count 165 MPV 7.1 L D Absolute Neuts (auto) 8.1 H Neutrophils % 81.9 Lymphocytes % 6.9 L D Monocytes % 10.8 H Eosinophils % 0.3 Basophils % 0.1 Nucleated RBC % 0 POC Glucometer 106 79 03/16/19 06:10 WBC RBC Hgb Hct MCV MCH MCHC RDW Plt Count MPV Absolute Neuts (auto) Neutrophils % Lymphocytes % Monocytes % Eosinophils % Basophils % Nucleated RBC % POC Glucometer 100 Current Medications Generic Name Dose Route Start Last Admin Trade Name Freq PRN Reason Stop Dose Admin Acetaminophen 650 mg 03/11/19 20:36 Tylenol - PO Q4H PRN PAIN Amlodipine Besylate 5 mg 03/04/19 10:00 03/16/19 10:53 Norvasc - PO 5 mg DAILY CHRIS Administration Atorvastatin Calcium 20 mg 03/04/19 22:00 03/15/19 21:19 Lipitor - PO 20 mg HS CHRIS Administration Levetiracetam 1,000 mg 03/06/19 22:00 03/16/19 10:52 Keppra Oral Solution - PO 1,000 mg BID CHRIS Administration Multivitamins/Minerals/Vitamin C 1 tab 03/04/19 10:00 03/16/19 10:53 Tab-A-Vit - PO 1 tab DAILY CHRIS Administration Senna 1 tab 03/04/19 10:00 03/16/19 10:53 Senna - PO 1 tab BID CHRIS Administration Valproate Sodium 500 mg 03/06/19 22:00 03/16/19 10:52 Depakene - PO 500 mg BID CHRIS Administration ASSESSMENT AND PLAN: This is a 73 year old man with a history of dementia, seizure disorder, CVA, atrial fib, constipation, HTN, hyperlipidemia, dysphagia who presented to the ED from [facility] for failure to thrive. 1. Failure to thrive - s/p G-tube placement by IR 03/14 - Tolerating Jevity 1.5 via GT 2. HTN - Continue Norvasc 3. Hyperlipidemia - Continue Lipitor 4. Seizure disorder - Continue Keppra, Depakene 5. History of atrial fib - Restart Eliquis 6. History of CVA 7. Constipation - Continue Senna 8. Dementia 9. Disposition - Ok for discharge to [facility]
--- NOTE | 2019-03-16 11:11 | PN ---
Progress Note, EDUCATION DIRECTOR - Note Progress Note: Selected Entries 03/15/19 03/15/19 03/15/19 02:36 07:18 09:45 Supper Temperature 98.5 F 98.7 F 98.7 F 03/15/19 03/15/19 03/15/19 14:00 16:30 18:30 Supper NPO Temperature 99.2 F 97.2 F L 99 F 03/15/19 03/16/19 03/16/19 22:00 02:00 07:44 Supper NPO Temperature 98.0 F 98 F Laboratory Tests 03/15/19 11:20 WBC 9.9 Receiving PEG feedings. Nonverbal. NPO. Pending d/c to [place]. Trial of speech tx at [place], if JOSE improves.
[2019-03-16 11:23] LABS: BASO % 0.1 % (0-2.0); EOS % 0.2 % (0-4.5); HEMATOCRIT 30.9 % (35.4-49); HEMOGLOBIN 10.4 GM/dL (11.7-16.9); LYMPH % 11.3 % (8-40); MCHC 33.5 g/dl (32.0-35.9); MEAN CELL VOLUME 92.6 fl (80-96); MEAN PLT VOLUME 7.2 fl (7.5-11.1); MONO % 11.7 % (3.8-10.2); NEUT % 76.7 % (42.8-82.8); PLATELET COUNT 175 K/MM3 (134-434); RBC 3.34 M/mm3 (4.00-5.60); RDW 16.5 % (11.9-15.9); WHITE BLOOD COUNT 8.2 K/mm3 (4.0-10.0)
[2019-03-16 11:49] LABS: BLOOD UREA NITROGEN 7.8 mg/dL (7-18); CALCIUM 7.8 mg/dL (8.5-10.1); POTASSIUM 3.4 mmol/L (3.5-5.1)
[2019-03-16 11:50] LABS: CREATININE 0.3 mg/dL (0.55-1.3); PHOSPHOROUS 2.5 mg/dL (2.5-4.9)
[2019-03-16] MEDS ORDERED: POTASSIUM CHLORIDE ORAL LIQUID 20 MEQ/15 ML GT ONE (12:15)
--- NOTE | 2019-03-16 12:39 | DS ---
Physical Exam: SUBJECTIVE: Patient seen and examined at bedside. +GT functioning well, without issue. D/w , all questions answered. OBJECTIVE: Vital Signs Period Temp Pulse Resp BP Sys/Palacios Pulse Ox Last 24 Hr 97.2 F-99.2 F 76-102 18-20 117-140/60-82 93 Physical exam general: visually tracks. non-verbal. heent: NCAT, PERRLA, MMM neck: supple cardio: S1, s2, rrr. no r/m/g pulm: CTA b/l. poor inspiratory effort abdomen: nontender, nondistended. +GT placed. gauze intact, c/d/i no guarding or rigidity ext: +mittens b/l. with heel guards b/l. no edema, contracted neuro: Road Consultant 2-12 appear to be grossly intact. unable to follow commands LABS Laboratory Results - last 24 hr 03/15/19 03/16/19 03/16/19 21:08 06:10 09:15 WBC 8.2 RBC 3.34 L Hgb 10.4 L Hct 30.9 L MCV 92.6 MCH 31.0 MCHC 33.5 RDW 16.5 H Plt Count 175 MPV 7.2 L Absolute Neuts (auto) 6.3 Neutrophils % 76.7 Lymphocytes % 11.3 D Monocytes % 11.7 H Eosinophils % 0.2 Basophils % 0.1 Nucleated RBC % 0 Sodium Potassium Chloride Carbon Dioxide Anion Gap BUN Creatinine Est GFR (CKD-EPI)AfAm Est GFR (CKD-EPI)NonAf POC Glucometer 79 100 Random Glucose Calcium Phosphorus Magnesium 03/16/19 03/16/19 09:15 11:31 WBC RBC Hgb Hct MCV MCH MCHC RDW Plt Count MPV Absolute Neuts (auto) Neutrophils % Lymphocytes % Monocytes % Eosinophils % Basophils % Nucleated RBC % Sodium 140 Potassium 3.4 L Chloride 105 Carbon Dioxide 29 Anion Gap 6 L BUN 7.8 Creatinine 0.3 L Est GFR (CKD-EPI)AfAm 151.56 Est GFR (CKD-EPI)NonAf 130.77 POC Glucometer 140 Random Glucose 111 H Calcium 7.8 L Phosphorus 2.5 Magnesium 2.0 03/03/19 03/08/19 03/09/19 20:45 12:15 00:02 PT with INR 16.40 H 14.50 H INR 1.39 H 1.23 H PTT (Actin FS) 22.1 L 31.2 24.5 L 03/09/19 03/10/19 07:45 06:45 PT with INR 15.20 H INR 1.28 H PTT (Actin FS) 79.2 H 29.2 03/14/19 03/14/19 07:20 21:45 Sodium 141 140 Potassium 2.7 L* 4.0 BUN 2.4 L* 5.5 L Creatinine 0.3 L 0.3 L Albumin 2.0 L 03/03: CXR: no endotracheal tube is visualized. symmetric aeration, no infiltrate or effusion, no pneumothorax 03/03: CTH: no acute bleed or fx. can't exclude normal pressure hydrocephalus 03/07: Barium Swallow: impaired mouth opening 2/2 apraxia. patient accepted thick and thin liquid with oral holding initially but with good tolerance. 03/10: CTAP: dependent atelectasis vs. patchy infiltrates at bases, small effusion on L, no bowel obstruction, mild dilation of extrahepatic bile ducts , no distal CBD stones. stomach body appears to be under the rib cage . this pt would benefit from oral contrast before GT placement 03/14 KUB: retained contrast in terminal ileum, appendix and colon. there is some contrast or calcification in the region oft the stomach/ LUQ. there is calcification of thoracic aorta. degenerative changes, pelvic phleboliths, and colonic diverticula in the pelvis. there is no gross obstruction or free air 03/15 KUB: retained small bowel and colonic contrast. GT with tip presumed in stomach. NGT with tip in stomach. RUQ clips. HOSPITAL COURSE: Date of Admission:03/03/19 Date of Discharge: 03/16/19 73 yo M with PMHx of Dementia, seizure disorder, CVA, afib, constipation, HTN, HLD, dysphagia, metab encephalopathy who presented from [facility] for refusal of PO intake, increased lethargy and altered mental status. Pt has been in and out of various hospitals, rehab centers and [place] since October 26, 2017 when he had a stroke which manifested as peripheral visual loss b/l and some R sided weakness than resolved following rehabilitation. In May 2018 he had a generalized tonic clonic seizure, but recovered. In October 2018 he had another seizure, which was thought to to be a stroke but missed tpa window due to elevated BP. Since October 2018 he has not been able to walk and has developed decubitus ulcers and stiffness of the hands. Pt was however said to be communicative until about 3 weeks ago when he became altered again, was admitted for UTI at [facility] and then discharged to [facility]. Today the family decided at a family meeting at [facility] to have the patient get a PEG tube since he is refusing to feed, that is why he was brought in on day of admission. Since pt's admission, pt was maintained on the floor. He was seen by speech and swallow and MBS was performed. Results above. As pt cont'd with FTT, he had a GT placed. Placement confirmed by KUB, and pt was trialed on tube feed diet for 24 hrs without issue. Pt is to return back to [facility] on [facility]. Case d/w pt' s at length Minutes to complete discharge: 45 Discharge Summary Problems reviewed: Yes Reason For Visit: ENCOUNTER FOR PERCUTANEOUS ENDOSCOPIC Current Active Problems Encounter for PEG (percutaneous endoscopic gastrostomy) (Acute) Failure to thrive in adult (Acute) Severe malnutrition (Acute) Atrial fibrillation (Chronic) CVA (cerebral vascular accident) (Chronic) Dementia (Chronic) Hypercholesterolemia (Chronic) Hypertension (Chronic) Seizure disorder (Chronic) Condition: Stable - Instructions Diet, Activity, Other Instructions: You were in the hospital because you were malnourished and had poor nutrition. While you were here, you had a PEG tube placed by interventional radiology. It has been working well, and you have been receiving feeds. You may continue on your tube feeds when you return back to [facility] on [place]. Your feeds were determined by a right of way agent as follows: Feeds were started slowly; Jevity 1.5 10ml/hr x 24 hours and were increased by 10ml every 6-8 hours to a goal rate of 55 ml/24hrs. Total volume of feeding = 1320ml -Suggest 20ml water flush each hour of feeding -Prosource recommended No carb 30 ccs daily You may continue your home medications. If you develop shortness of breath or chest pain, please go to the hospital. Referrals: Cortez Dozier MD [Primary Care Provider] - 1 Week Disposition: NURSING HOME FACILITY - Home Medications Comprehensive Discharge Medication List: Ambulatory Orders Acetaminophen [Tylenol] 325 mg PO Q4H PRN 03/03/19 Amlodipine Besylate 5 mg PO DAILY 03/03/19 Apixaban [Eliquis] 5 mg PO BID 03/03/19 Atorvastatin Ca [Lipitor] 20 mg PO HS 03/03/19 Cyanocobalamin (Vitamin B-12) [Cyanocobalamin Injection] 1,000 mcg IJ ASDIR 12/12 Divalproex Sprinkle [Depakote Sprinkle -] 125 mg PO BID 03/03/19 Multivitamin [Multiple Vitamins] 1 each PO DAILY 03/03/19 Sennosides [Senna Lax] 8.6 mg PO BID 03/03/19 levETIRAcetam [levETIRAcetam ORAL SUSPENSION] 100 mg PO BID 03/03/19 This patient is new to me today: No Emergency Visit: No Critical Care patient: No - Discharge Referral Referred to [facility] Med [facility] No
[2019-03-16 15:52] VITALS: BP 95/52; PULSE 91; TEMP 98.5
== END 2019-03-16 18:18 | DRG 884 ==
LOC: JER 16:25 → JERBED 22:08 → J8W 23:49
PROVIDERS: ADMIT Internal Medicine; ATTEND Internal Medicine
PROC: 0DH63UZ Insertion of Feeding Device into Stomach, Percutaneous Approach (ICD-10-PCS; principal; 2019-03-14)
PROC: 3E0G76Z Introduction of Nutritional Substance into Upper GI, Via Natural or Artificial Opening (ICD-10-PCS; 2019-03-14)
DX: F03.91 Unspecified dementia, unspecified severity, with behavioral disturbance (principal); G93.41 Metabolic encephalopathy; E43 Unspecified severe protein-calorie malnutrition; I48.21 Permanent atrial fibrillation; I69.351 Hemiplegia and hemiparesis following cerebral infarction affecting right dominant side; R62.7 Adult failure to thrive; Z68.23 Body mass index [BMI] 23.0-23.9, adult; G40.909 Epilepsy, unspecified, not intractable, without status epilepticus; E16.2 Hypoglycemia, unspecified; D64.9 Anemia, unspecified; K59.09 Other constipation; I10 Essential (primary) hypertension; E78.5 Hyperlipidemia, unspecified; R13.10 Dysphagia, unspecified; R48.2 Apraxia; Z66 Do not resuscitate; Z74.01 Bed confinement status; Z93.1 Gastrostomy status; H54.3 Unqualified visual loss, both eyes; R41.82 Altered mental status, unspecified
CPT/HCPCS: 36415; 43752; 49440; 70450-TC; 71045-TC-FY; 74018-TC-FY; 74150-TC; 74230-TC-FY; 76000-TC-FY; 80048; 80053; 80164; 81003; 82040; 82962; 83605; 83735; 84100; 84134; 85025; 85027; 85610; 85730; 86850; 86900; 86901; 87086; 92611-GN; 93005; 93010; 97116-GP; 97162-GP; 99283-25; C1769; C1887; J1644; J7030

== ENCOUNTER 2019-06-09 16:41 | Inpatient (IN) | payer OTHER, BC ==
[2019-06-09] MEDS ORDERED: SODIUM CHLORIDE 2,177 ML IV ONE (17:52)
[2019-06-09] MEDS ORDERED: ACETAMINOPHEN 1000 MG/100 ML VIAL (NON FORMULARY) IVPB ONE (17:59)
[2019-06-09] MEDS ORDERED: PIPERACILLIN/TAZOB 3.375 GM 3.375 GM in DEXTROSE 5%-WATER - 50 ML IVPB ONE (17:59)
[2019-06-09] MEDS ORDERED: VANCOMYCIN 1,000 MG in DEXTROSE 5%-WATER - 250 ML IVPB ONE (17:59)
--- NOTE | 2019-06-09 18:04 | PDOC ---
Attending Attestation - Resident Resident Name: Belen Garcia - ED Attending Attestation I have performed the following: I have examined & evaluated the patient, The case was reviewed & discussed with the resident, I agree w/resident's findings & plan, Exceptions are as noted - HPI HPI: 06/09/19 18:03 74-year-old male brought in by ambulance from longterm for hypoxia and increased difficulty breathing 06/09/19 18:04 Past medical history significant for dementia, seizures, CVA, A. fib on Coumadin , hypertension, hyperlipidemia and metabolic encephalopathy Patient has rectal temp equal to 99.8 and is tachycardic - Physicial Exam PE: 06/09/19 18:04 74-year-old male on 5 L O2 with tachypnea and tachycardia Head normocephalic atraumatic Neck no bruits Lungs diminished breath sounds left lower base, coarse rhonchi in the right CVS tachycardia Abdomen flat Skin warm and dry extremities no erythema,large padding on his heels Neuro patient is alert but nonverbal at baseline - Medical Decision Making 06/09/19 18:07 74-year-old male presents with tachypnea, hypoxia, low-grade fever Sepsis work-up initiated Portable chest x-ray obtained Plan blood cultures, CBC, troponin, BNP, chemistries, lactic acid and IV antibiotics 06/10/19 01:17 Troponin less than 0.02 UA is negative Lactic acid equal to 2 BNP is elevated 1664 Leukocytosis of 12,400 Hemoglobin is 12 hematocrit is 32 06/10/19 01:34 CT CHEST c/w aspiration pneumonitis/ CHF ADMIT 06/10/19 01:35
--- NOTE | 2019-06-09 18:17 | PDOC ---
History of Present Illness - General Chief Complaint: Respiratory Distress Stated Complaint: RESPIRATORY PROBLEM,EDEMA BOTH ARMS Time Seen by Provider: 06/09/19 17:13 - History of Present Illness Initial Comments: 06/09/19 18:17 74 y/o NON-VERBAL M with PMH of advanced Dementia, seizure disorder, CVA, afib, constipation, HTN, HLD, dysphagia who presents to ED from [facility] for tachypnea. According to the daughter at bedside, Pt was found to be in respiratory distress and with a respiratory rate of 40. Went cough on interview.Pt was recently on antibiotics for bronchitis. Temp of 99.8F rectally in ED and tachypnic at 30. other vital signs stable PE: GEN: mod distress HEENT: PERRLA, clear conjunctiva CHEST: reduced breath sounds at the bases HEART: tachy but regular, no murmur, rubs or gallop Abdomen: +BS, NTND, no HSM extremeties: edema in the upper extremities R>L , 2+ pulses in the Lower extremities neuro: unable to examen as pt has advanced dementia. bedbound Assessment: based on HPI and PE DDX include: will r/o sepsis from pulmonary infection vs urinary vs PE (tho unlikely 06/09/19 18:18 Plan: Sepsis workup including: CBC, CMP, blood culture, urine culture, UA, lactic acid, CXR, ABG will obtain duplex US to r/o DVT in the UE s/p lab results will also give vanc and zosyn empirically will sign out to night resident to continue care 06/10/19 07:52 Past History - Past Medical History Allergies/Adverse Reactions: Allergies Allergy/AdvReac Type Severity Reaction Status Date / Time No Known Allergies Allergy Verified 06/09/19 17:29 Home Medications: Ambulatory Orders Acetaminophen [Tylenol] 325 mg PO Q4H PRN 03/03/19 Amlodipine Besylate 5 mg PO DAILY 03/03/19 Apixaban [Eliquis] 5 mg PO BID 03/03/19 Atorvastatin Ca [Lipitor] 20 mg PO HS 03/03/19 Cyanocobalamin (Vitamin B-12) [Cyanocobalamin Injection] 1,000 mcg IJ ASDIR 12/12 Divalproex Sprinkle [Depakote Sprinkle -] 125 mg PO BID 03/03/19 Multivitamin [Multiple Vitamins] 1 each PO DAILY 03/03/19 Sennosides [Senna Lax] 8.6 mg PO BID 03/03/19 levETIRAcetam [levETIRAcetam ORAL SUSPENSION] 100 mg PO BID 03/03/19 Donepezil HCl [Aricept -] 10 mg GT DAILY 06/10/19 Anemia: Yes Cardiac Disorders: Yes (AFIB) COPD: No GI Disorders: Yes (CONSTIPATION) HTN: Yes Hypercholesterolemia: Yes Psychiatric Problems: Yes (major depressive disorder) Seizures: Yes - Immunization History Immunization Up to Date: Yes - Psycho Social/Smoking Cessation Hx Smoking History: Unknown if ever smoked Have you smoked in the past 12 months: No Hx Alcohol Use: No Drug/Substance Use Hx: No Review of Systems - Review of Systems Able to Perform ROS?: No (pt is nonverbal) Constitutional: No: Chills, Night Sweats HEENTM: No: Recent change in vision Respiratory: Yes: Cough, Shortness of Breath, Productive cough Cardiac (ROS): Yes: Palpitations *Physical Exam - Vital Signs Last Vital Signs Temp Pulse Resp BP Pulse Ox 99.8 F H 102 H 40 H 122/80 98 06/09/19 16:50 06/09/19 16:50 06/09/19 16:50 06/09/19 16:50 06/09/19 16:50 - Physical Exam General Appearance: Yes: Mild Distress HEENT: positive: RAJENDRA Neck: positive: Trachea midline, Supple Respiratory/Chest: positive: Decreased Breath Sounds, Crackles Cardiovascular: positive: Regular Rate, S1, S2, Edema Gastrointestinal/Abdominal: positive: Normal Bowel Sounds Musculoskeletal: positive: Other (pt bedbound) Extremity: positive: Normal Capillary Refill Integumentary: positive: Warm ED Treatment Course - LABORATORY CBC & Chemistry Diagram: 06/10/19 04:28 06/10/19 04:28 Discharge - Discharge Information Problems reviewed: Yes Clinical Impression/Diagnosis: Sepsis Qualifiers: Sepsis type: sepsis due to unspecified organism Sepsis acute organ dysfunction status: unspecified Qualified Code(s): A41.9 - Sepsis, unspecified organism Condition: Guarded - Admission Yes - Follow up/Referral - Patient Discharge Instructions - Post Discharge Activity
[2019-06-09 18:27] LABS: ARTERIAL BLD GAS O2 SATURATION 99.8 % (95-98); ARTERIAL BLOOD GAS BASE EXCESS 10.4 meq/l (-2-2); ARTERIAL BLOOD GAS PCO2 33.2 mmHg (35-45); ARTERIAL BLOOD GAS PO2 199 mmHg (80-100); CARBOXYHEMOGLOBIN 1.3 % (0-2)
[2019-06-09 18:28] LABS: ALLENS TEST POSITIVE
[2019-06-09 19:10] LABS: BASO % 0.4 % (0-2.0); EOS % 0.1 % (0-4.5); HEMATOCRIT 32.6 % (35.4-49); HEMOGLOBIN 10.4 GM/dL (11.7-16.9); LYMPH % 5.8 % (8-40); MCH 29.3 pg (25.7-33.7); MEAN CELL VOLUME 91.4 fl (80-96); MEAN PLT VOLUME 7.8 fl (7.5-11.1); MONO % 8.7 % (3.8-10.2); PLATELET COUNT 218 K/MM3 (134-434); RBC 3.56 M/mm3 (4.00-5.60); WHITE BLOOD COUNT 12.4 K/mm3 (4.0-10.0)
--- NOTE | 2019-06-09 19:12 | PDOC ---
*Physical Exam - Vital Signs Last Vital Signs Temp Pulse Resp BP Pulse Ox 99.8 F H 102 H 40 H 122/80 98 06/09/19 16:50 06/09/19 16:50 06/09/19 16:50 06/09/19 16:50 06/09/19 18:56 ED Treatment Course - LABORATORY CBC & Chemistry Diagram: 06/10/19 04:28 06/10/19 04:28 - ADDITIONAL ORDERS Additional order review: Laboratory Results 06/09/19 18:15 Anticoagulation Therapy No Result Required. Puncture Site No Result Required. ABG pH 7.60 H ABG pCO2 at Pt Temp 33.2 L ABG pO2 at Pt Temp 199 H ABG HCO3 32.8 H ABG O2 Sat (Measured) 99.8 H ABG O2 Content 14.9 ABG Base Excess 10.4 H Kvng Test Positive Carboxyhemoglobin 1.3 Methemoglobin < 1.0 O2 Delivery Device No Result Required. Oxygen Flow Rate No Result Required. Vent Mode No Result Required. Vent Rate No Result Required. Mechanical Rate No Result Required. Pressure Support Vent No Result Required. Medical Decision Making - Medical Decision Making Limited 2/2 dementia. Review of Systems GENERAL/CONSTITUTIONAL: No fever or chills. No weakness._ HEAD, EYES, EARS, NOSE AND THROAT: No change in vision. No change in hearing. No sore throat._ CARDIOVASCULAR: No chest pain. RESPIRATORY: Positive for cough. Positive for tachypnea and respiratory distress. GASTROINTESTINAL: No nausea, vomiting, diarrhea or constipation._ MUSCULOSKELETAL: Reports right arm swelling. SKIN: No rash_ HEMATOLOGIC/LYMPHATIC: No anemia, easy bleeding, or history of blood clots._ 06/09/19 19:12 Pt received on sign out from Dr. Garcia. 74M presenting with tachypnea and RUE swelling. Sepsis work up. Plan to admit. F /u labs and imaging. 06/09/19 20:03 EKG shows sinus tachycardia, 103 bpm, LAD, incomplete RBBB seen on prior 2018, QTc 497, no ST elevation. 06/10/19 01:42 CT chest shows ill defined opacities in the lower lobes compatible with combination of pneumonitis and subsegmental atelectasis. Possible aspiration pneumonitis. Labs reviewed. Laboratory Last Values WBC 12.4 K/mm3 (4.0-10.0) H 06/09/19 18:05 RBC 3.56 M/mm3 (4.00-5.60) L 06/09/19 18:05 Hgb 10.4 GM/dL (11.7-16.9) L 06/09/19 18:05 Hct 32.6 % (35.4-49) L 06/09/19 18:05 MCV 91.4 fl (80-96) 06/09/19 18:05 MCH 29.3 pg (25.7-33.7) 06/09/19 18:05 MCHC 32.0 g/dl (32.0-35.9) 06/09/19 18:05 RDW 16.0 % (11.9-15.9) H 06/09/19 18:05 Plt Count 218 K/MM3 (134-434) D 06/09/19 18:05 MPV 7.8 fl (7.5-11.1) 06/09/19 18:05 Absolute Neuts (auto) 10.5 K/mm3 (1.5-8.0) H 06/09/19 18:05 Neutrophils % 85.0 % (42.8-82.8) H 06/09/19 18:05 Lymphocytes % 5.8 % (8-40) L D 06/09/19 18:05 Monocytes % 8.7 % (3.8-10.2) 06/09/19 18:05 Eosinophils % 0.1 % (0-4.5) 06/09/19 18:05 Basophils % 0.4 % (0-2.0) D 06/09/19 18: Nucleated RBC % 0 % (0-0) 06/09/19 18:05 PT with INR 18.60 SEC (9.7-13.0) H 06/09/19 18:05 INR 1.57 (0.83-1.09) H 06/09/19 18:05 PTT (Actin FS) 36.0 SECONDS (25.2-36.5) 06/09/19 18:05 Anticoagulation Therapy No Result Required. 06/09/19 18:15 Puncture Site No Result Required. 06/09/19 18:15 ABG pH 7.60 (7.35-7.45) H 06/09/19 18:15 ABG pCO2 at Pt Temp 33.2 mmHg (35-45) L 06/09/19 18:15 ABG pO2 at Pt Temp 199 mmHg (80-100) H 06/09/19 18:15 ABG HCO3 32.8 mmol/L (22-27) H 06/09/19 18:15 ABG O2 Sat (Measured) 99.8 % (95-98) H 06/09/19 18:15 ABG O2 Content 14.9 % vol 06/09/19 18:15 ABG Base Excess 10.4 meq/l (-2-2) H 06/09/19 18:15 Kvng Test Positive 06/09/19 18:15 Carboxyhemoglobin 1.3 % (0-2) 06/09/19 18:15 Methemoglobin < 1.0 % (0-2) 06/09/19 18:15 O2 Delivery Device No Result Required. 06/09/19 18:15 Oxygen Flow Rate No Result Required. 06/09/19 18:15 Vent Mode No Result Required. 06/09/19 18:15 Vent Rate No Result Required. 06/09/19 18:15 Mechanical Rate No Result Required. 06/09/19 18:15 Pressure Support Vent No Result Required. 06/09/19 18:15 Sodium 138 mmol/L (136-145) 06/09/19 18:05 Potassium 4.0 mmol/L (3.5-5.1) 06/09/19 18:05 Chloride 100 mmol/L (98-107) 06/09/19 18:05 Carbon Dioxide 34 mmol/L (21-32) H 06/09/19 18:05 Anion Gap 4 MMOL/L (8-16) L 06/09/19 18:05 BUN 16.3 mg/dL (7-18) 06/09/19 18:05 Creatinine 0.4 mg/dL (0.55-1.3) L 06/09/19 18:05 Est GFR (CKD-EPI)AfAm 133.72 06/09/19 18:05 Est GFR (CKD-EPI)NonAf 115.37 06/09/19 18:05 Random Glucose 90 mg/dL (74-106) 06/09/19 18:05 Lactic Acid 2.0 mmol/L (0.4-2.0) 06/09/19 18:05 Calcium 8.2 mg/dL (8.5-10.1) L 06/09/19 18:05 Total Bilirubin 0.2 mg/dL (0.2-1) 06/09/19 18:05 AST 25 U/L (15-37) 06/09/19 18:05 ALT 20 U/L (13-61) 06/09/19 18:05 Alkaline Phosphatase 90 U/L (45-117) 06/09/19 18:05 Troponin I < 0.02 ng/ml (0.00-0.05) 06/09/19 18:05 B-Natriuretic Peptide 1664.8 pg/ml (5-450) H 06/09/19 18:05 Total Protein 5.6 g/dl (6.4-8.2) L 06/09/19 18:05 Albumin 1.9 g/dl (3.4-5.0) L 06/09/19 18:05 Urine Color Yellow 06/09/19 21:00 Urine Appearance Clear 06/09/19 21:00 Urine pH 7.0 (5.0-8.0) 06/09/19 21:00 Ur Specific [place]el 1.032 (1.010-1.035) 06/09/19 21:00 Urine Protein Negative (NEGATIVE) 06/09/19 21:00 Urine Glucose (UA) Negative (NEGATIVE) 06/09/19 21:00 Urine Ketones Negative (NEGATIVE) 06/09/19 21:00 Urine Blood Negative (NEGATIVE) 06/09/19 21:00 Urine Nitrite Negative (NEGATIVE) 06/09/19 21:00 Urine Bilirubin Negative (NEGATIVE) 06/09/19 21:00 Urine Urobilinogen 0.2 mg/dL (0.2-1.0) 06/09/19 21:00 Ur Leukocyte Esterase Negative (NEGATIVE) 06/09/19 21:00 06/10/19 02:01 D/w Dr. Malou Doe who accepts the patient for admission. Discharge - Discharge Information Problems reviewed: Yes Clinical Impression/Diagnosis: Tachypnea Sepsis Qualifiers: Sepsis type: sepsis due to unspecified organism Sepsis acute organ dysfunction status: unspecified Qualified Code(s): A41.9 - Sepsis, unspecified organism Condition: Guarded - Admission Yes - Follow up/Referral - Patient Discharge Instructions - Post Discharge Activity
[2019-06-09 19:30] LABS: INR 1.57 (0.83-1.09); PROTHROMBIN TIME (PATIENT) 18.6 SEC (9.7-13.0)
[2019-06-09 19:37] LABS: ALBUMIN 1.9 g/dl (3.4-5.0); BILIRUBIN,TOTAL 0.2 mg/dL (0.2-1); BLOOD UREA NITROGEN 16.3 mg/dL (7-18); CALCIUM 8.2 mg/dL (8.5-10.1); CREATININE 0.4 mg/dL (0.55-1.3); TOT PROT 5.6 g/dl (6.4-8.2)
[2019-06-09] MEDS ORDERED: PIPERACILLIN/TAZOB 3.375 GM 3.375 GM/50 ML BAG IVPB ONE (19:37)
[2019-06-09] MEDS ORDERED: ACETAMINOPHEN INJECTION 100 ML IVPB ONE (19:37)
[2019-06-09] MEDS ORDERED: VANCOMYCIN 1 GRAM (PRE-DOCKED) 1,000 MG/250 ML BAG IVPB ONE (19:37)
[2019-06-09 20:54] LABS: N-TERMINAL BNP 1664.8 pg/ml (5-450)
[2019-06-09 21:29] LABS: URINE APPEARANCE CLEAR; URINE BILIRUBIN NEGATIVE (NEGATIVE); URINE COLOR YELLOW; URINE GLUCOSE (UA) NEGATIVE (NEGATIVE); URINE KETONE NEGATIVE (NEGATIVE); URINE LEUK ESTERASE NEGATIVE (NEGATIVE); URINE NITRITE NEGATIVE (NEGATIVE); URINE PROTEIN NEGATIVE (NEGATIVE); URINE UROBILINOGEN 0.2 mg/dL (0.2-1.0)
[2019-06-09] MEDS ORDERED: SODIUM CHLORIDE 1,000 ML IV SCH (21:30)
--- NOTE | 2019-06-10 02:00 | HP ---
<Malou Doe - Last Filed: 06/10/19 04:25> CHIEF COMPLAINT: PCP: HISTORY OF PRESENT ILLNESS: 74 yo M PMH of advanced Dementia, seizure disorder, CVA, afib, HTN, HLD, dysphagia presents to ED from [facility] for tachypnea. Sign out from ED was that the pt presented in distress and was tachypnic and that pt recently was on antibiotcs for bronchitis. Pt is non-verbal and family was not at bedside. ER course was notable for: (1)CT chest (2) vanc zosyn (3) PAST MEDICAL HISTORY: see HPI Allergies No Known Allergies Allergy (Verified 06/09/19 17:29) HOME MEDICATIONS: Home Medications Medication Instructions Recorded Acetaminophen [Tylenol] 325 mg PO Q4H PRN 03/03/19 Amlodipine Besylate 5 mg PO DAILY 03/03/19 Apixaban [Eliquis] 5 mg PO BID 03/03/19 Atorvastatin Ca [Lipitor] 20 mg PO HS 03/03/19 Cyanocobalamin (Vitamin B-12) 1,000 mcg IJ ASDIR 03/03/19 [Cyanocobalamin Injection] Divalproex Sprinkle [Depakote 125 mg PO BID 03/03/19 Sprinkle -] Multivitamin [Multiple Vitamins] 1 each PO DAILY 03/03/19 Sennosides [Senna Lax] 8.6 mg PO BID 03/03/19 levETIRAcetam [levETIRAcetam ORAL 100 mg PO BID 03/03/19 SUSPENSION] REVIEW OF SYSTEMS: Could not obtain as pt is non verbal PHYSICAL EXAMINATION Vital Signs - 24 hr 06/09/19 06/09/19 16:50 18:56 Temperature 99.8 F H Pulse Rate 102 H Respiratory 40 H Rate Blood Pressure 122/80 O2 Sat by Pulse 98 98 Oximetry (%) GENERAL: Awake, alert in no acute distress. contracted HEAD: Normal with no signs of trauma. LUNGS: anterior Breath sounds equal, clear to auscultation bilaterally. No wheezes, and no crackles. No accessory muscle use. HEART: Regular rate and rhythm, normal S1 and S2 without murmur, rub or gallop. ABDOMEN: Soft, nontender, not distended, normoactive bowel sounds, no guarding, no rebound UPPER EXTREMITIES: RUE edema LOWER EXTREMITIES: 2+ pulses, warm, well-perfused. No peripheral edema. SKIN: Warm, dry, normal turgor, no rashes or lesions noted, normal capillary refill. Laboratory Last Values WBC 12.4 K/mm3 (4.0-10.0) H 06/09/19 18:05 RBC 3.56 M/mm3 (4.00-5.60) L 06/09/19 18:05 Hgb 10.4 GM/dL (11.7-16.9) L 06/09/19 18:05 Hct 32.6 % (35.4-49) L 06/09/19 18:05 MCV 91.4 fl (80-96) 06/09/19 18:05 MCH 29.3 pg (25.7-33.7) 06/09/19 18:05 MCHC 32.0 g/dl (32.0-35.9) 06/09/19 18:05 RDW 16.0 % (11.9-15.9) H 06/09/19 18:05 Plt Count 218 K/MM3 (134-434) D 06/09/19 18:05 MPV 7.8 fl (7.5-11.1) 06/09/19 18:05 Absolute Neuts (auto) 10.5 K/mm3 (1.5-8.0) H 06/09/19 18:05 Neutrophils % 85.0 % (42.8-82.8) H 06/09/19 18:05 Lymphocytes % 5.8 % (8-40) L D 06/09/19 18:05 Monocytes % 8.7 % (3.8-10.2) 06/09/19 18:05 Eosinophils % 0.1 % (0-4.5) 06/09/19 18:05 Basophils % 0.4 % (0-2.0) D 06/09/19 18: Nucleated RBC % 0 % (0-0) 06/09/19 18:05 PT with INR 18.60 SEC (9.7-13.0) H 06/09/19 18:05 INR 1.57 (0.83-1.09) H 06/09/19 18:05 PTT (Actin FS) 36.0 SECONDS (25.2-36.5) 06/09/19 18:05 Anticoagulation Therapy No Result Required. 06/09/19 18:15 Puncture Site No Result Required. 06/09/19 18:15 ABG pH 7.60 (7.35-7.45) H 06/09/19 18:15 ABG pCO2 at Pt Temp 33.2 mmHg (35-45) L 06/09/19 18:15 ABG pO2 at Pt Temp 199 mmHg (80-100) H 06/09/19 18:15 ABG HCO3 32.8 mmol/L (22-27) H 06/09/19 18:15 ABG O2 Sat (Measured) 99.8 % (95-98) H 06/09/19 18:15 ABG O2 Content 14.9 % vol 06/09/19 18:15 ABG Base Excess 10.4 meq/l (-2-2) H 06/09/19 18:15 Kvng Test Positive 06/09/19 18:15 Carboxyhemoglobin 1.3 % (0-2) 06/09/19 18:15 Methemoglobin < 1.0 % (0-2) 06/09/19 18:15 O2 Delivery Device No Result Required. 06/09/19 18:15 Oxygen Flow Rate No Result Required. 06/09/19 18:15 Vent Mode No Result Required. 06/09/19 18:15 Vent Rate No Result Required. 06/09/19 18:15 Mechanical Rate No Result Required. 06/09/19 18:15 Pressure Support Vent No Result Required. 06/09/19 18:15 Sodium 138 mmol/L (136-145) 06/09/19 18:05 Potassium 4.0 mmol/L (3.5-5.1) 06/09/19 18:05 Chloride 100 mmol/L (98-107) 06/09/19 18:05 Carbon Dioxide 34 mmol/L (21-32) H 06/09/19 18:05 Anion Gap 4 MMOL/L (8-16) L 06/09/19 18:05 BUN 16.3 mg/dL (7-18) 06/09/19 18:05 Creatinine 0.4 mg/dL (0.55-1.3) L 06/09/19 18:05 Est GFR (CKD-EPI)AfAm 133.72 06/09/19 18:05 Est GFR (CKD-EPI)NonAf 115.37 06/09/19 18:05 Random Glucose 90 mg/dL (74-106) 06/09/19 18:05 Lactic Acid 2.0 mmol/L (0.4-2.0) 06/09/19 18:05 Calcium 8.2 mg/dL (8.5-10.1) L 06/09/19 18:05 Total Bilirubin 0.2 mg/dL (0.2-1) 06/09/19 18:05 AST 25 U/L (15-37) 06/09/19 18:05 ALT 20 U/L (13-61) 06/09/19 18:05 Alkaline Phosphatase 90 U/L (45-117) 06/09/19 18:05 Troponin I < 0.02 ng/ml (0.00-0.05) 06/09/19 18:05 B-Natriuretic Peptide 1664.8 pg/ml (5-450) H 06/09/19 18:05 Total Protein 5.6 g/dl (6.4-8.2) L 06/09/19 18:05 Albumin 1.9 g/dl (3.4-5.0) L 06/09/19 18:05 Urine Color Yellow 06/09/19 21:00 Urine Appearance Clear 06/09/19 21:00 Urine pH 7.0 (5.0-8.0) 06/09/19 21:00 Ur Specific [place] 1.032 (1.010-1.035) 06/09/19 21:00 Urine Protein Negative (NEGATIVE) 06/09/19 21:00 Urine Glucose (UA) Negative (NEGATIVE) 06/09/19 21:00 Urine Ketones Negative (NEGATIVE) 06/09/19 21:00 Urine Blood Negative (NEGATIVE) 06/09/19 21:00 Urine Nitrite Negative (NEGATIVE) 06/09/19 21:00 Urine Bilirubin Negative (NEGATIVE) 06/09/19 21:00 Urine Urobilinogen 0.2 mg/dL (0.2-1.0) 06/09/19 21:00 Ur Leukocyte Esterase Negative (NEGATIVE) 06/09/19 21:00 CT Chest: 1. Ill-defined opacities in the lower lobes compatible with a combination of pneumonitis and subsegmental atelectasis in a background of pulmonary venous congestion with multiple scattered groundglass opacities in both lungs. The possibility of aspiration pneumonitis should be considered given small debris in bilateral main bronchi. Small bilateral pleural effusions. One or more of the following dose reduction techniques were used: automated exposure control, adjustment of the mA and/or kV according to patient size, use of iterative reconstructive technique. ASSESSMENT/PLAN: 74 yo M PMH of advanced Dementia, seizure disorder, CVA, afib, HTN, HLD, dysphagia presents to ED from [facility] for tachypnea. Pt is admitted for aspiration pneumonitis Acute hypoxic respiratory failure 2/2 aspiration pneumonitis - CT scan reviewed, please see above - empiric vanc/ zosyn - ID recs appreciated - pending Flu - ABG reviewed. failure to thrive - pt has PEG - dietary eval HTN - hold antihypertensive in setting of sepsis HLD - c/w statin Afib - continue Eliquis Seizure d/o - continue home meds - continue aspiration precautions - keep HOB elevated DVT ppx: on eliquis Dispo:: tele ATTENDING PHYSICIAN STATEMENT I saw and evaluated the patient. I reviewed the resident's note and discussed the case with the resident. I agree with the resident's findings and plan as documented. SUBJECTIVE: OBJECTIVE: ASSESSMENT AND PLAN: <Raghavendra Stout - Last Filed: 06/10/19 05:44> CHIEF COMPLAINT: PCP: HISTORY OF PRESENT ILLNESS: ER course was notable for: (1) (2) (3) Recent Travel: PAST MEDICAL HISTORY: PAST SURGICAL HISTORY: Social History: Smoking: Alcohol: Drugs: Allergies No Known Allergies Allergy (Verified 06/09/19 17:29) HOME MEDICATIONS: Home Medications Medication Instructions Recorded Acetaminophen [Tylenol] 325 mg PO Q4H PRN 03/03/19 Amlodipine Besylate 5 mg PO DAILY 03/03/19 Apixaban [Eliquis] 5 mg PO BID 03/03/19 Atorvastatin Ca [Lipitor] 20 mg PO HS 03/03/19 Cyanocobalamin (Vitamin B-12) 1,000 mcg IJ ASDIR 03/03/19 [Cyanocobalamin Injection] Divalproex Sprinkle [Depakote 125 mg PO BID 03/03/19 Sprinkle -] Multivitamin [Multiple Vitamins] 1 each PO DAILY 03/03/19 Sennosides [Senna Lax] 8.6 mg PO BID 03/03/19 levETIRAcetam [levETIRAcetam ORAL 100 mg PO BID 03/03/19 SUSPENSION] REVIEW OF SYSTEMS CONSTITUTIONAL: Absent: fever, chills, diaphoresis, generalized weakness, malaise, loss of appetite, weight change HEENT: Absent: rhinorrhea, nasal congestion, throat pain, throat swelling, difficulty swallowing, mouth swelling, ear pain, eye pain, visual changes CARDIOVASCULAR: Absent: chest pain, syncope, palpitations, irregular heart rate, lightheadedness , peripheral edema RESPIRATORY: Absent: cough, shortness of breath, dyspnea with exertion, orthopnea, wheezing, stridor, hemoptysis GASTROINTESTINAL: Absent: abdominal pain, abdominal distension, nausea, vomiting, diarrhea, constipation, melena, hematochezia GENITOURINARY: Absent: dysuria, frequency, urgency, hesitancy, hematuria, flank pain, genital pain MUSCULOSKELETAL: Absent: myalgia, arthralgia, joint swelling, back pain, neck pain SKIN: Absent: rash, itching, pallor HEMATOLOGIC/IMMUNOLOGIC: Absent: easy bleeding, easy bruising, lymphadenopathy, frequent infections ENDOCRINE: Absent: unexplained weight gain, unexplained weight loss, heat intolerance, cold intolerance NEUROLOGIC: Absent: headache, focal weakness or paresthesias, dizziness, unsteady gait, seizure, mental status changes, bladder or bowel incontinence PSYCHIATRIC: Absent: anxiety, depression, suicidal or homicidal ideation, hallucinations. PHYSICAL EXAMINATION Vital Signs - 24 hr 06/09/19 06/09/19 06/09/19 16:50 18:56 21:30 Temperature 99.8 F H Pulse Rate 102 H Pulse Rate [ Left Radial] Respiratory 40 H Rate Blood Pressure 122/80 Blood Pressure [Right Arm] O2 Sat by Pulse 98 98 99 Oximetry (%) 06/10/19 06/10/19 02:25 05:03 Temperature 98.3 F 97.5 F L Pulse Rate Pulse Rate [ 79 73 Left Radial] Respiratory 16 18 Rate Blood Pressure Blood Pressure 148/88 120/78 [Right Arm] O2 Sat by Pulse 99 98 Oximetry (%) GENERAL: Awake, alert, and fully oriented, in no acute distress. HEAD: Normal with no signs of trauma. EYES: Pupils equal, round and reactive to light, extraocular movements intact, sclera anicteric, conjunctiva clear. No lid lag. EARS, NOSE, THROAT: Ears normal, nares patent, oropharynx clear without exudates. Moist mucous membranes. NECK: Normal range of motion, supple without lymphadenopathy, JVD, or masses. LUNGS: Breath sounds equal, clear to auscultation bilaterally. No wheezes, and no crackles. No accessory muscle use. HEART: Regular rate and rhythm, normal S1 and S2 without murmur, rub or gallop. ABDOMEN: Soft, nontender, not distended, normoactive bowel sounds, no guarding, no rebound, no masses. No hepatomegaly or splenomegaly. MUSCULOSKELETAL: Normal range of motion at all joints. No bony deformities or tenderness. No CVA tenderness. UPPER EXTREMITIES: 2+ pulses, warm, well-perfused. No cyanosis. No clubbing. No peripheral edema. LOWER EXTREMITIES: 2+ pulses, warm, well-perfused. No calf tenderness. No peripheral edema. NEUROLOGICAL: Cranial nerves II-XII intact. Normal speech. Normal gait. PSYCHIATRIC: Cooperative. Good eye contact. Appropriate mood and affect. SKIN: Warm, dry, normal turgor, no rashes or lesions noted, normal capillary refill. Laboratory Results - last 24 hr 06/09/19 06/09/19 06/09/19 18:05 18:05 18:05 WBC 12.4 H RBC 3.56 L Hgb 10.4 L Hct 32.6 L MCV 91.4 MCH 29.3 MCHC 32.0 RDW 16.0 H Plt Count 218 D MPV 7.8 Absolute Neuts (auto) 10.5 H Neutrophils % 85.0 H Lymphocytes % 5.8 L D Monocytes % 8.7 Eosinophils % 0.1 Basophils % 0.4 D Nucleated RBC % 0 PT with INR 18.60 H INR 1.57 H PTT (Actin FS) 36.0 Anticoagulation Therapy Puncture Site ABG pH ABG pCO2 at Pt Temp ABG pO2 at Pt Temp ABG HCO3 ABG O2 Sat (Measured) ABG O2 Content ABG Base Excess Kvng Test Carboxyhemoglobin Methemoglobin O2 Delivery Device Oxygen Flow Rate Vent Mode Vent Rate Mechanical Rate Pressure Support Vent Sodium Potassium Chloride Carbon Dioxide Anion Gap BUN Creatinine Est GFR (CKD-EPI)AfAm Est GFR (CKD-EPI)NonAf Random Glucose Lactic Acid Calcium Phosphorus Magnesium Total Bilirubin AST ALT Alkaline Phosphatase Troponin I < 0.02 B-Natriuretic Peptide Total Protein Albumin Urine Color Urine Appearance Urine pH Ur Specific [place] Urine Protein Urine Glucose (UA) Urine Ketones Urine Blood Urine Nitrite Urine Bilirubin Urine Urobilinogen Ur Leukocyte Esterase Influenza A (Rapid) Influenza B (Rapid) 06/09/19 06/09/19 06/09/19 18:05 18:05 18:15 WBC RBC Hgb Hct MCV MCH MCHC RDW Plt Count MPV Absolute Neuts (auto) Neutrophils % Lymphocytes % Monocytes % Eosinophils % Basophils % Nucleated RBC % PT with INR INR PTT (Actin FS) Anticoagulation Therapy No Result Required. Puncture Site No Result Required. ABG pH 7.60 H ABG pCO2 at Pt Temp 33.2 L ABG pO2 at Pt Temp 199 H ABG HCO3 32.8 H ABG O2 Sat (Measured) 99.8 H ABG O2 Content 14.9 ABG Base Excess 10.4 H Kvng Test Positive Carboxyhemoglobin 1.3 Methemoglobin < 1.0 O2 Delivery Device No Result Required. Oxygen Flow Rate No Result Required. Vent Mode No Result Required. Vent Rate No Result Required. Mechanical Rate No Result Required. Pressure Support Vent No Result Required. Sodium 138 Potassium 4.0 Chloride 100 Carbon Dioxide 34 H Anion Gap 4 L BUN 16.3 Creatinine 0.4 L Est GFR (CKD-EPI)AfAm 133.72 Est GFR (CKD-EPI)NonAf 115.37 Random Glucose 90 Lactic Acid 2.0 Calcium 8.2 L Phosphorus Magnesium Total Bilirubin 0.2 AST 25 ALT 20 Alkaline Phosphatase 90 Troponin I B-Natriuretic Peptide 1664.8 H Total Protein 5.6 L Albumin 1.9 L Urine Color Urine Appearance Urine pH Ur Specific [place] Urine Protein Urine Glucose (UA) Urine Ketones Urine Blood Urine Nitrite Urine Bilirubin Urine Urobilinogen Ur Leukocyte Esterase Influenza A (Rapid) Influenza B (Rapid) 06/09/19 06/10/19 06/10/19 21:00 04:28 04:28 WBC 8.7 RBC 3.33 L Hgb 10.1 L Hct 30.3 L MCV 90.9 MCH 30.2 MCHC 33.2 RDW 15.9 Plt Count 210 MPV 7.4 L Absolute Neuts (auto) 6.4 Neutrophils % 74.2 Lymphocytes % 15.1 D Monocytes % 9.9 Eosinophils % 0.5 D Basophils % 0.3 Nucleated RBC % 0 PT with INR INR PTT (Actin FS) Anticoagulation Therapy Puncture Site ABG pH ABG pCO2 at Pt Temp ABG pO2 at Pt Temp ABG HCO3 ABG O2 Sat (Measured) ABG O2 Content ABG Base Excess Kvng Test Carboxyhemoglobin Methemoglobin O2 Delivery Device Oxygen Flow Rate Vent Mode Vent Rate Mechanical Rate Pressure Support Vent Sodium 141 Potassium 3.8 Chloride 103 Carbon Dioxide 34 H Anion Gap 4 L BUN 16.7 Creatinine 0.3 L Est GFR (CKD-EPI)AfAm 150.50 Est GFR (CKD-EPI)NonAf 129.85 Random Glucose 77 Lactic Acid Calcium 8.0 L Phosphorus 3.6 Magnesium 1.9 Total Bilirubin 0.4 AST 21 ALT 19 Alkaline Phosphatase 85 Troponin I < 0.02 B-Natriuretic Peptide Total Protein 5.4 L Albumin 1.8 L Urine Color Yellow Urine Appearance Clear Urine pH 7.0 Ur Specific [place] 1.032 Urine Protein Negative Urine Glucose (UA) Negative Urine Ketones Negative Urine Blood Negative Urine Nitrite Negative Urine Bilirubin Negative Urine Urobilinogen 0.2 Ur Leukocyte Esterase Negative Influenza A (Rapid) Influenza B (Rapid) 06/10/19 04:28 WBC RBC Hgb Hct MCV MCH MCHC RDW Plt Count MPV Absolute Neuts (auto) Neutrophils % Lymphocytes % Monocytes % Eosinophils % Basophils % Nucleated RBC % PT with INR INR PTT (Actin FS) Anticoagulation Therapy Puncture Site ABG pH ABG pCO2 at Pt Temp ABG pO2 at Pt Temp ABG HCO3 ABG O2 Sat (Measured) ABG O2 Content ABG Base Excess Kvng Test Carboxyhemoglobin Methemoglobin O2 Delivery Device Oxygen Flow Rate Vent Mode Vent Rate Mechanical Rate Pressure Support Vent Sodium Potassium Chloride Carbon Dioxide Anion Gap BUN Creatinine Est GFR (CKD-EPI)AfAm Est GFR (CKD-EPI)NonAf Random Glucose Lactic Acid Calcium Phosphorus Magnesium Total Bilirubin AST ALT Alkaline Phosphatase Troponin I B-Natriuretic Peptide Total Protein Albumin Urine Color Urine Appearance Urine pH Ur Specific [place] Urine Protein Urine Glucose (UA) Urine Ketones Urine Blood Urine Nitrite Urine Bilirubin Urine Urobilinogen Ur Leukocyte Esterase Influenza A (Rapid) Negative Influenza B (Rapid) Negative ASSESSMENT/PLAN: Visit type - Emergency Visit Emergency Visit: Yes ED Registration Date: 06/10/19 Care time: The patient presented to the Emergency Department on the above date and was hospitalized for further evaluation of their emergent condition. - New Patient This patient is new to me today: Yes Date on this admission: 06/10/19 - Critical Care Critical Care patient: No ATTENDING PHYSICIAN STATEMENT I saw and evaluated the patient. I reviewed the resident's note and discussed the case with the resident. I agree with the resident's findings and plan as documented. SUBJECTIVE: 74 yo M PMH of advanced Dementia, seizure disorder, CVA, afib, HTN , HLD, dysphagia presents to ED from [facility] for tachypnea, hypoxia and respiratory distress. Patient is non verbal and unable to provide any history. OBJECTIVE: Last Vital Signs Temp Pulse Resp BP Pulse Ox 97.5 F L 73 18 120/78 98 06/10/19 05:03 06/10/19 05:03 06/10/19 05:03 06/10/19 05:03 06/10/19 05:03 General : not in acute distress Head ; NC, AT Lungs :Tachypnea decreased breath sounds b/l, Heart ; tachycardia, No MRG Ext : right UE edema, mild resting tremors left UE Abd : non distended, non tender, + peg tuve neuro : non verbal, contacted UE, doesent follow commands, moves extremities Ct chest was done which showed Aspiration pneumonitis ASSESSMENT AND PLAN: Acute hypoxic respiratory failure due to Aspiration pneumonitis failure to thrive HTN, Afib on coumadin, Seizure disorder Hx of CVA Advanced dementia Admit to telemetry flu test IV antibiotics Vancomycin, Zosyn Urine antigens, sputum culture Lactic acid, pro josefina, mg, phos, cpk ID eval gentle hydration NS 84 ml/hour PEg tube feeding Cont home meds Aspiration precautions PT/ Rehab DVt ppx
[2019-06-10 04:45] LABS: BASO % 0.3 % (0-2.0); EOS % 0.5 % (0-4.5); HEMATOCRIT 30.3 % (35.4-49); HEMOGLOBIN 10.1 GM/dL (11.7-16.9); LYMPH % 15.1 % (8-40); MCH 30.2 pg (25.7-33.7); MCHC 33.2 g/dl (32.0-35.9); MEAN CELL VOLUME 90.9 fl (80-96); MEAN PLT VOLUME 7.4 fl (7.5-11.1); MONO % 9.9 % (3.8-10.2); NEUT % 74.2 % (42.8-82.8); PLATELET COUNT 210 K/MM3 (134-434); RBC 3.33 M/mm3 (4.00-5.60); RDW 15.9 % (11.9-15.9); WHITE BLOOD COUNT 8.7 K/mm3 (4.0-10.0)
[2019-06-10 05:26] LABS: ALBUMIN 1.8 g/dl (3.4-5.0); ALK PHOS 85 U/L (45-117); ANION GAP 4 MMOL/L (8-16); BILIRUBIN,TOTAL 0.4 mg/dL (0.2-1); BLOOD UREA NITROGEN 16.7 mg/dL (7-18); CHLORIDE 103 mmol/L (98-107); CO2 34 mmol/L (21-32); CREATININE 0.3 mg/dL (0.55-1.3); GLUCOSE,RANDOM 77 mg/dL (74-106); MAGNESIUM 1.9 mg/dL (1.8-2.4); PHOSPHOROUS 3.6 mg/dL (2.5-4.9); POTASSIUM 3.8 mmol/L (3.5-5.1); SGOT/AST 21 U/L (15-37); SGPT/ALT 19 U/L (13-61); SODIUM 141 mmol/L (136-145); TOT PROT 5.4 g/dl (6.4-8.2)
[2019-06-10] MEDS ORDERED: DIVALPROEX SODIUM 125 MG SPRINKLE CAPS PO SCH (10:00)
[2019-06-10] MEDS ORDERED: LEVETIRACETAM PO SCH (10:00)
[2019-06-10] MEDS ORDERED: APIXABAN 5 MG TABLET PO SCH (10:00)
[2019-06-10] MEDS ORDERED: HEPARIN NA (PORCINE) 5,000 UNITS/ML 1ML VIAL SQ SCH (10:00)
[2019-06-10] MEDS ORDERED: PIPERACILLIN/TAZOBACTAM 3.375 GM VIAL IVPB ONE (10:12)
[2019-06-10] MEDS ORDERED: DEXTROSE 5%-WATER - 50 ML IVPB ONE (10:12)
[2019-06-10] MEDS ORDERED: PT OWN MED DRAWER 7, Y5N ONE ×2 (10:23→19:17)
[2019-06-10] MEDS: SODIUM CHLORIDE 1,000 ML IV SCH (13:30)
[2019-06-10] MEDS: PIPERACILLIN/TAZOB 3.375 GM 3.375 GM in DEXTROSE 5%-WATER - 50 ML IVPB SCH ×2 (13:31→19:20)
--- NOTE | 2019-06-10 13:56 | PN ---
Progress Note (short form) - Note Progress Note: Patient is lying in bed, non verbal. no acute distress. Vital Signs Temperature 97.9 F 06/10/19 05:42 Pulse Rate 83 06/10/19 05:42 Respiratory Rate 20 06/10/19 05:42 Blood Pressure 165/96 06/10/19 05:42 O2 Sat by Pulse Oximetry (%) 99 06/10/19 06:39 GENERAL: The patient is awake, alert, and fully oriented, in no acute distress. HEAD: Normal with no signs of trauma. EYES: PERRL, extraocular movements intact, sclera anicteric, conjunctiva clear. ENT: Ears normal, oropharynx clear without exudates, moist mucous membranes. NECK: Trachea midline, full range of motion, supple. LUNGS: Breath sounds equal, clear to auscultation bilaterally, no wheezes, no crackles, no accessory muscle use. HEART: Regular rate and rhythm, S1, S2 without murmur, rub or gallop. ABDOMEN: Soft, Nt,ND, normoactive bowel sounds, no guarding, no rebound,+g-tube , no masses appreciated. EXTREMITIES: 2+ pulses, warm, well-perfused, no edema. NEUROLOGICAL: Cranial nerves II through XII grossly intact. Normal speech, gait not observed. PSYCH: Normal mood, normal affect. SKIN: Warm, dry, normal turgor, no rashes or lesions noted CBCD WBC 8.7 K/mm3 (4.0-10.0) 06/10/19 04:28 RBC 3.33 M/mm3 (4.00-5.60) L 06/10/19 04:28 Hgb 10.1 GM/dL (11.7-16.9) L 06/10/19 04:28 Hct 30.3 % (35.4-49) L 06/10/19 04:28 MCV 90.9 fl (80-96) 06/10/19 04:28 MCHC 33.2 g/dl (32.0-35.9) 06/10/19 04:28 RDW 15.9 % (11.9-15.9) 06/10/19 04:28 Plt Count 210 K/MM3 (134-434) 06/10/19 04:28 MPV 7.4 fl (7.5-11.1) L 06/10/19 04:28 CMP Sodium 141 mmol/L (136-145) 06/10/19 04:28 Potassium 3.8 mmol/L (3.5-5.1) 06/10/19 04:28 Chloride 103 mmol/L (98-107) 06/10/19 04:28 Carbon Dioxide 34 mmol/L (21-32) H 06/10/19 04:28 Anion Gap 4 MMOL/L (8-16) L 06/10/19 04:28 BUN 16.7 mg/dL (7-18) 06/10/19 04:28 Creatinine 0.3 mg/dL (0.55-1.3) L 06/10/19 04:28 Random Glucose 77 mg/dL (74-106) 06/10/19 04:28 Calcium 8.0 mg/dL (8.5-10.1) L 06/10/19 04:28 Total Bilirubin 0.4 mg/dL (0.2-1) 06/10/19 04:28 AST 21 U/L (15-37) 06/10/19 04:28 ALT 19 U/L (13-61) 06/10/19 04:28 Alkaline Phosphatase 85 U/L (45-117) 06/10/19 04:28 Total Protein 5.4 g/dl (6.4-8.2) L 06/10/19 04:28 Albumin 1.8 g/dl (3.4-5.0) L 06/10/19 04:28 CARDIAC ENZYMES Creatine Kinase 45 U/L (26-308) 06/10/19 04:28 Troponin I < 0.02 ng/ml (0.00-0.05) 06/10/19 04:28 Current Medications Generic Name Dose Route Start Last Admin Trade Name Freq PRN Reason Stop Dose Admin Apixaban 5 mg 06/10/19 10:00 06/10/19 13:31 Eliquis - PO Not Given BID [facility] Atorvastatin Calcium 20 mg 06/10/19 22:00 Lipitor - PO HS [facility] Divalproex Sodium 125 mg 06/10/19 10:00 06/10/19 13:31 Depakote Sprinkle Caps - PO Not Given BID [facility] Piperacillin Sod/Tazobactam 50 mls @ 100 mls/hr 02/15/20 10:00 Sod 3.375 gm/ Dextrose IVPB Q8H-IV [facility] Protocol Sodium Chloride 1,000 mls @ 75 mls/hr 06/10/19 05:45 06/10/19 13:30 Normal Saline - IV Not Given ASDIR [facility] Piperacillin Sod/Tazobactam 50 mls @ 100 mls/hr 06/10/19 10:00 06/10/19 13:31 Sod 3.375 gm/ Dextrose IVPB 06/11/19 09:59 Not Given Q8H-IV [facility] Protocol Levetiracetam 1,000 mg 06/10/19 14:00 Keppra Oral Solution - PO BID [facility] Home Medications Medication Instructions Recorded Acetaminophen [Tylenol] 325 mg PO Q4H PRN 03/03/19 Amlodipine Besylate 5 mg PO DAILY 03/03/19 Apixaban [Eliquis] 5 mg PO BID 03/03/19 Atorvastatin Ca [Lipitor] 20 mg PO HS 03/03/19 Cyanocobalamin (Vitamin B-12) 1,000 mcg IJ ASDIR 03/03/19 [Cyanocobalamin Injection] Divalproex Sprinkle [Depakote 125 mg PO BID 03/03/19 Sprinkle -] Multivitamin [Multiple Vitamins] 1 each PO DAILY 03/03/19 Sennosides [Senna Lax] 8.6 mg PO BID 03/03/19 levETIRAcetam [levETIRAcetam ORAL 100 mg PO BID 03/03/19 SUSPENSION] Donepezil HCl [Aricept -] 10 mg GT DAILY 06/10/19 CT Chest: 1. Ill-defined opacities in the lower lobes compatible with a combination of pneumonitis and subsegmental atelectasis in a background of pulmonary venous congestion with multiple scattered groundglass opacities in both lungs. The possibility of aspiration pneumonitis should be considered given small debris in bilateral main bronchi. Small bilateral pleural effusions. One or more of the following dose reduction techniques were used: automated exposure control, adjustment of the mA and/or kV according to patient size, use of iterative reconstructive technique. ASSESSMENT/PLAN: Patient is a 74 yo M PMHx of advanced Dementia, seizure disorder, CVA, afib, HTN, HLD, dysphagia presents to ED from [facility] for tachypnea. Pt is admitted for aspiration pneumonitis # Acute hypoxic respiratory failure possible due to aspiration pneumonitis s/p IV zosyn /vanco, ordered Zosyn but patient has no line at this time, will start Augmentin 600ES liquid, 2xper day. will reevaluate for further need of IV antibiotic in am #Aspiration Pneumonitis: will start Augmentin per Gtube since has no IV access, patient is afebrile now, and nl wbc # failure to thrive continue peg tube, nutrition consult for further evaluation #HTN CONTINUE home meds #HLD continue lipitor # Hx of Afib: continue Eliquis # Hx of Seizure: continue keppra and depakote , seizure precaution DVT ppx: on eliquis Visit type - Emergency Visit Emergency Visit: Yes ED Registration Date: 06/10/19 Care time: The patient presented to the Emergency Department on the above date and was hospitalized for further evaluation of their emergent condition. - New Patient This patient is new to me today: Yes Date on this admission: 06/10/19 - Critical Care Critical Care patient: No - Discharge Referral Referred to [facility] Med [facility].C.: No
[2019-06-10] MEDS ORDERED: levETIRAcetam 500 MG/5 ML ORAL SOLUTION (UNIT-DOSE CUPS) GT SCH (14:00)
[2019-06-10] MEDS: levETIRAcetam 500 MG/5 ML ORAL SOLUTION (UNIT-DOSE CUPS) PO SCH ×2 (14:48→21:00)
--- NOTE | 2019-06-10 17:09 | EKG ---
Test Reason : Blood Pressure : / mmHG Vent. Rate : 103 BPM Atrial Rate : 103 BPM P-R Int : 154 ms QRS Dur : 110 ms QT Int : 380 ms P-R-T Axes : 031 -41 -10 degrees QTc Int : 497 ms SINUS TACHYCARDIA LEFT AXIS DEVIATION INCOMPLETE RIGHT BUNDLE BRANCH BLOCK ABNORMAL ECG WHEN COMPARED WITH ECG OF 04-MAR-2019 10:53, VENT. RATE HAS INCREASED BY 36 BPM CLINICAL CORRELATION IS RECOMMENDED BASELINE ARTIFACT Confirmed by KATHERYN ELIAS MD ([id number]) on 06/10/2019 5:08:51 PM Referred By: Confirmed By:KATHERYN ELIAS MD
[2019-06-10] MEDS: AMINO ACIDS/PROTEIN HYDROLYS 30 ML LIQUID.PKT GT SCH (18:57)
[2019-06-10] MEDS ORDERED: ACETAMINOPHEN 650 MG/20.3 ML ORAL SOLUTION (CUPS) PO PRN (19:13)
[2019-06-10] MEDS ORDERED: amLODIPine BESYLATE 5 MG TABLET (FP) PO SCH (19:15)
[2019-06-10] MEDS ORDERED: DIVALPROEX SODIUM 125 MG SPRINKLE CAPS GT SCH (19:36)
[2019-06-10] MEDS ORDERED: ACETAMINOPHEN 650 MG/20.3 ML ORAL SOLUTION (CUPS) GT PRN (19:41)
[2019-06-10] MEDS: AMOX TR/POTASSIUM CLAVULANATE 600 MG/5 ML PO SCH (20:56)
[2019-06-10] MEDS: DONEPEZIL HCL 10 MG TABLET (FP) GT SCH (20:57)
[2019-06-10] MEDS: APIXABAN 5 MG TABLET PEG SCH (20:59)
[2019-06-10] MEDS: SENNOSIDES 8.8 MG/5 ML BULK BOTTLE GT SCH (21:00)
[2019-06-10] MEDS: ATORVASTATIN CA 20 MG TABLET (FP) GT SCH (21:00)
[2019-06-11] MEDS ORDERED: PIPERACILLIN/TAZOBACTAM 3.375 GM VIAL IVPB ONE ×3 (02:18→17:05)
[2019-06-11] MEDS ORDERED: DEXTROSE 5%-WATER - 50 ML IVPB ONE ×3 (02:18→17:06)
[2019-06-11] MEDS: PIPERACILLIN/TAZOB 3.375 GM 3.375 GM in DEXTROSE 5%-WATER - 50 ML IVPB SCH ×4 (02:31→17:44)
--- NOTE | 2019-06-11 08:17 | PN ---
Physical Exam: SUBJECTIVE: Patient seen and examined at the bedside. Overnight, PEG tube fell out and was unable to be replaced. Non-verbal at baseline, unable to obtain ROS. OBJECTIVE: Vital Signs Period Temp Pulse Resp BP Sys/Palacios Pulse Ox Last 24 Hr 97.6 F-99.2 F 50-94 18-20 124-164/60-85 100 GENERAL: The patient is awake, not alert and not oriented. HEAD: Normal with no signs of trauma. EYES: PERRL ENT: Oropharynx clear without exudates, dry mucous membranes. LUNGS: Anterior breath sounds, mildly coarse. HEART: Normal rate and irregular rhythm, S1, S2 with noted systolic ejection murmur. ABDOMEN: Soft, nontender, nondistended, normoactive bowel sounds, no guarding, no rebound, no masses. PEG site intact with no purulence or erythema. EXTREMITIES: 1+ pulses, warm, well-perfused, trace edema. NEUROLOGICAL: Tracking with eyes. Rigidity in all limbs with mild spontaneous movement. PSYCH: Unable to assess. Active Medications Generic Name Dose Route Start Last Admin Trade Name Freq PRN Reason Stop Dose Admin Acetaminophen 325 mg 06/10/19 19:41 Tylenol Oral Solution - GT Q4H PRN FEVER Amino Acids 30 ml 06/10/19 17:30 06/10/19 18:57 Prosource No Carb Liquid Pkt GT 30 ml BID@0800,1730 [facility]IS Administration Amlodipine Besylate 5 mg 06/10/19 19:35 Norvasc - GT DAILY [facility]IS Amoxicillin/Clavulanate Potassium 600 mg 06/10/19 19:45 06/10/19 20:56 Augmentin 600 Mg/5 Ml Oral Suspension - PO 600 mg BID@0800,1730 [facility] Administration Apixaban 5 mg 06/10/19 19:35 06/10/19 20:59 Eliquis - PEG 5 mg BID [facility]IS Administration Atorvastatin Calcium 20 mg 06/10/19 22:00 06/10/19 21:00 Lipitor - GT 20 mg HS CHRIS Administration Divalproex Sodium 125 mg 06/10/19 19:36 06/10/19 20:59 Depakote Sprinkle Caps - GT 125 mg BID CHRIS Administration Donepezil HCl 10 mg 06/10/19 19:15 06/10/19 20:57 Aricept - GT 10 mg DAILY CHRIS Administration Piperacillin Sod/Tazobactam 50 mls @ 100 mls/hr 06/10/19 10:00 Sod 3.375 gm/ Dextrose IVPB Q8H-IV CH[facility]IS Protocol Sodium Chloride 1,000 mls @ 75 mls/hr 06/10/19 05:45 06/10/19 13:30 Normal Saline - IV Not Given ASDIR [facility]IS Piperacillin Sod/Tazobactam 50 mls @ 100 mls/hr 06/10/19 10:00 06/11/19 02:31 Sod 3.375 gm/ Dextrose IVPB 06/11/19 09:59 Not Given Q8H-IV [facility]IS Protocol Levetiracetam 1,000 mg 06/10/19 14:00 06/10/19 21:00 Keppra Oral Solution - PO 1,000 mg BID [facility]IS Administration Multivitamins/Minerals 15 ml 06/11/19 10:00 Certavite-Antioxidant Liquid GT DAILY CHRIS Senna 8.8 mg 06/10/19 22:00 06/10/19 21:00 Senna Oral Solution - GT 8.8 mg BID CHRIS Administration CT Chest: 1. Ill-defined opacities in the lower lobes compatible with a combination of pneumonitis and subsegmental atelectasis in a background of pulmonary venous congestion with multiple scattered groundglass opacities in both lungs. The possibility of aspiration pneumonitis should be considered given small debris in bilateral main bronchi. Small bilateral pleural effusions. One or more of the following dose reduction techniques were used: automated exposure control, adjustment of the mA and/or kV according to patient size, use of iterative reconstructive technique. ASSESSMENT/PLAN: Rohan Kumar is a 74 year old male with a past medical history of advanced Dementia, seizure disorder, CVA, afib, HTN, HLD, dysphagia presenting from [facility] admitted for aspiration pneumonitis. Acute hypoxic respiratory failure 2/2 aspiration pneumonitis - CT scan reviewed, please see above - continue Augmentin 600mg bid via G-tube - ID consulted - Flu negative - legionella/strep negative - blood cultures negative Failure to Thrive - PEG will need to be replaced, appiah as temporary replacement, with noted correct placement as per abdomen x-ray - dietary eval - low albumin R internal jugular and R subclavian vein thrombus - as noted on duplex - on Lovenox 60mg subq bid HTN - continue home amlodipine HLD - continue home atorvastatin Afib - on Lovenox 60mg subq bid as patient has no enteral access Seizure - continue Keppra and Depakote as IV meds. Depakote 250mg IV bid as per pharmacy recommendations - continue aspiration precautions - keep HOB elevated Dementia - continue home Aricept DVT ppx - Lovenox 60mg subq bid FEN - no standing fluids - continue to monitor electrolytes and replete as necessary - will need tube replacement for continuation of enteral feeds Dispo - continue to monitor on Med-surg Visit type - Emergency Visit Emergency Visit: Yes ED Registration Date: 06/10/19 Care time: The patient presented to the Emergency Department on the above date and was hospitalized for further evaluation of their emergent condition. - New Patient This patient is new to me today: Yes Date on this admission: 06/11/19 - Critical Care Critical Care patient: No
[2019-06-11 08:57] LABS: BASO % 0.3 % (0-2.0); EOS % 0.4 % (0-4.5); HEMATOCRIT 33.9 % (35.4-49); HEMOGLOBIN 11.3 GM/dL (11.7-16.9); MCH 29.7 pg (25.7-33.7); MCHC 33.1 g/dl (32.0-35.9); MEAN CELL VOLUME 89.6 fl (80-96); MEAN PLT VOLUME 7.9 fl (7.5-11.1); MONO % 8.1 % (3.8-10.2); NEUT % 81.2 % (42.8-82.8); PLATELET COUNT 260 K/MM3 (134-434); RBC 3.79 M/mm3 (4.00-5.60); RDW 15.7 % (11.9-15.9); WHITE BLOOD COUNT 9.1 K/mm3 (4.0-10.0)
[2019-06-11 09:30] LABS: BILIRUBIN,TOTAL 0.5 mg/dL (0.2-1); BLOOD UREA NITROGEN 17.1 mg/dL (7-18); CALCIUM 8.2 mg/dL (8.5-10.1); CREATININE 0.3 mg/dL (0.55-1.3); MAGNESIUM 2.3 mg/dL (1.8-2.4); PHOSPHOROUS 2.9 mg/dL (2.5-4.9); POTASSIUM 3.4 mmol/L (3.5-5.1); TOT PROT 5.8 g/dl (6.4-8.2)
[2019-06-11] MEDS: AMOX TR/POTASSIUM CLAVULANATE 600 MG/5 ML PO SCH (09:41)
[2019-06-11] MEDS: AMINO ACIDS/PROTEIN HYDROLYS 30 ML LIQUID.PKT GT SCH ×2 (09:41→17:40)
--- NOTE | 2019-06-11 09:59 | PN ---
Teaching Attending Note Name of Resident: Horacio Moreau ATTENDING PHYSICIAN STATEMENT I saw and evaluated the patient. I reviewed the resident's note and discussed the case with the resident. I agree with the resident's findings and plan as documented. SUBJECTIVE: Patient is lying in bed with no acute distress. patient's G-tube dislodged last night around 3am Vital Signs Temperature 97.9 F 06/11/19 07:59 Pulse Rate 50 L 06/11/19 07:59 Respiratory Rate 20 06/11/19 07:59 Blood Pressure 145/76 06/11/19 07:59 O2 Sat by Pulse Oximetry (%) 100 06/10/19 21:00 GENERAL: The patient is awake, alert, and fully oriented, in no acute distress. HEAD: Normal with no signs of trauma. EYES: PERRL, extraocular movements intact, sclera anicteric, conjunctiva clear. ENT: Ears normal, oropharynx clear without exudates, moist mucous membranes. NECK: Trachea midline, full range of motion, supple. LUNGS: Breath sounds equal, clear to auscultation bilaterally, no wheezes, no crackles, no accessory muscle use. HEART: Regular rate and rhythm, S1, S2 without murmur, rub or gallop. ABDOMEN: Soft, Nt,ND, normoactive bowel sounds, no guarding, no rebound,+ for temporary catheter, in place of Gtube to keep it often.no masses appreciated. EXTREMITIES: 2+ pulses, warm, well-perfused, no edema. NEUROLOGICAL: Cranial nerves II through XII grossly intact. Normal speech, gait not observed. PSYCH: Normal mood, normal affect. SKIN: Warm, dry, normal turgor, no rashes or lesions noted CBCD WBC 9.1 K/mm3 (4.0-10.0) 06/11/19 07:32 RBC 3.79 M/mm3 (4.00-5.60) L 06/11/19 07:32 Hgb 11.3 GM/dL (11.7-16.9) L 06/11/19 07:32 Hct 33.9 % (35.4-49) L 06/11/19 07:32 MCV 89.6 fl (80-96) 06/11/19 07:32 MCHC 33.1 g/dl (32.0-35.9) 06/11/19 07:32 RDW 15.7 % (11.9-15.9) 06/11/19 07:32 Plt Count 260 K/MM3 (134-434) D 06/11/19 07:32 MPV 7.9 fl (7.5-11.1) 06/11/19 07:32 CMP Sodium 140 mmol/L (136-145) 06/11/19 07:32 Potassium 3.4 mmol/L (3.5-5.1) L 06/11/19 07:32 Chloride 102 mmol/L (98-107) 06/11/19 07:32 Carbon Dioxide 32 mmol/L (21-32) 06/11/19 07:32 Anion Gap 6 MMOL/L (8-16) L 06/11/19 07:32 BUN 17.1 mg/dL (7-18) 06/11/19 07:32 Creatinine 0.3 mg/dL (0.55-1.3) L 06/11/19 07:32 Random Glucose 59 mg/dL (74-106) L 06/11/19 07:32 Calcium 8.2 mg/dL (8.5-10.1) L 06/11/19 07:32 Total Bilirubin 0.5 mg/dL (0.2-1) 06/11/19 07:32 AST 25 U/L (15-37) 06/11/19 07:32 ALT 20 U/L (13-61) 06/11/19 07:32 Alkaline Phosphatase 92 U/L (45-117) 06/11/19 07:32 Total Protein 5.8 g/dl (6.4-8.2) L 06/11/19 07:32 Albumin 2.0 g/dl (3.4-5.0) L 06/11/19 07:32 CARDIAC ENZYMES Creatine Kinase 45 U/L (26-308) 06/10/19 04:28 Troponin I < 0.02 ng/ml (0.00-0.05) 06/10/19 04:28 Current Medications Generic Name Dose Route Start Last Admin Trade Name Freq PRN Reason Stop Dose Admin Acetaminophen 325 mg 06/10/19 19:41 Tylenol Oral Solution - GT Q4H PRN FEVER Amino Acids 30 ml 06/10/19 17:30 06/11/19 09:41 Prosource No Carb Liquid Pkt GT Not Given BID@0800,1730 [facility] Amlodipine Besylate 5 mg 06/10/19 19:35 Norvasc - GT DAILY CHRIS Amoxicillin/Clavulanate Potassium 600 mg 06/10/19 19:45 06/11/19 09:41 Augmentin 600 Mg/5 Ml Oral Suspension - PO Not Given BID@0800,1730 [facility] Apixaban 5 mg 06/10/19 19:35 06/10/19 20:59 Eliquis - PEG 5 mg BID CHRIS Administration Atorvastatin Calcium 20 mg 06/10/19 22:00 06/10/19 21:00 Lipitor - GT 20 mg HS CHRIS Administration Donepezil HCl 10 mg 06/10/19 19:15 06/10/19 20:57 Aricept - GT 10 mg DAILY CHRIS Administration Piperacillin Sod/Tazobactam 50 mls @ 100 mls/hr 06/10/19 10:00 Sod 3.375 gm/ Dextrose IVPB Q8H-IV CHRIS Protocol Sodium Chloride 1,000 mls @ 75 mls/hr 06/10/19 05:45 06/10/19 13:30 Normal Saline - IV Not Given ASDIR CHRIS Piperacillin Sod/Tazobactam 50 mls @ 100 mls/hr 06/10/19 10:00 06/11/19 02:31 Sod 3.375 gm/ Dextrose IVPB 06/11/19 09:59 Not Given Q8H-IV CHRIS Protocol Potassium Chloride 10 meq in 100 mls @ 100 mls/hr 06/11/19 09:45 Potassium Chloride 10 Meq Premix Ivpb - IVPB 06/11/19 12:44 Q60M CHRIS Levetiracetam 1,000 mg 06/11/19 10:00 Keppra Injection - IVPB BID [facility] Multivitamins/Minerals 15 ml 06/11/19 10:00 Certavite-Antioxidant Liquid GT DAILY [facility] Senna 8.8 mg 06/10/19 22:00 06/10/19 21:00 Senna Oral Solution - GT 8.8 mg BID [facility] Administration Valproate Sodium 125 mg 06/11/19 10:00 Depacon Injection - IVPB BID [facility] Home Medications Medication Instructions Recorded Acetaminophen [Tylenol] 325 mg PO Q4H PRN 03/03/19 Amlodipine Besylate 5 mg PO DAILY 03/03/19 Apixaban [Eliquis] 5 mg PO BID 03/03/19 Atorvastatin Ca [Lipitor] 20 mg PO HS 03/03/19 Cyanocobalamin (Vitamin B-12) 1,000 mcg IJ ASDIR 03/03/19 [Cyanocobalamin Injection] Divalproex Sprinkle [Depakote 125 mg PO BID 03/03/19 Sprinkle -] Multivitamin [Multiple Vitamins] 1 each PO DAILY 03/03/19 Sennosides [Senna Lax] 8.6 mg PO BID 03/03/19 levETIRAcetam [levETIRAcetam ORAL 100 mg PO BID 03/03/19 SUSPENSION] Donepezil HCl [Aricept -] 10 mg GT DAILY 06/10/19 CT Chest: 1. Ill-defined opacities in the lower lobes compatible with a combination of pneumonitis and subsegmental atelectasis in a background of pulmonary venous congestion with multiple scattered groundglass opacities in both lungs. The possibility of aspiration pneumonitis should be considered given small debris in bilateral main bronchi. Small bilateral pleural effusions. One or more of the following dose reduction techniques were used: automated exposure control, adjustment of the mA and/or kV according to patient size, use of iterative reconstructive technique. ASSESSMENT/PLAN: Patient is a 74 yo M PMHx of advanced Dementia, seizure disorder, CVA, afib, HTN, HLD, dysphagia presents to ED from [facility] for tachypnea. Pt is admitted for aspiration pneumonitis # Acute hypoxic respiratory failure possible due to aspiration pneumonitis s/p IV zosyn /vanco, ordered Zosyn but since patient lost the line started the patient on liquid augmentin but patient lost the Gtube , temporary gtube in place. patient has IV line now , back on IV antibiotic. #Aspiration Pneumonitis: on IV Zosyn . has IV access now. # G-tube access loss: hold Eliquis for now, use Gtube meds through the temporary catheter, lovenox tonight, restart the eliquis once gtube in place. # failure to thrive continue peg tube, nutrition consult for further evaluation #HTN CONTINUE home meds #HLD continue lipitor # Hx of Afib: hold Eliquis, continue lovenox # Hx of Seizure: continue keppra and depakote , seizure precaution DVT ppx: hold eliquis, continue Lovenox, hold prior to procedure
[2019-06-11] MEDS ORDERED: VALPROATE SODIUM 500 MG/5 ML VIAL IVPB SCH (10:00)
[2019-06-11] MEDS: SODIUM CHLORIDE 1,000 ML IV SCH (10:18)
[2019-06-11] MEDS: MULTIVIT-MINERALS ORAL LIQUID GT SCH (10:29)
[2019-06-11] MEDS: DONEPEZIL HCL 10 MG TABLET (FP) GT SCH ×2 (10:29→17:50)
[2019-06-11] MEDS: KCL 10 MEQ IVPB 10 MEQ/100 ML INFUS.BAG IVPB SCH ×3 (10:30→18:42)
[2019-06-11] MEDS: APIXABAN 5 MG TABLET PEG SCH (10:30)
[2019-06-11] MEDS: SENNOSIDES 8.8 MG/5 ML BULK BOTTLE GT SCH ×2 (10:36→23:57)
[2019-06-11] MEDS: VALPROATE SODIUM 500 MG/5 ML VIAL IVPB SCH ×2 (12:52→22:27)
[2019-06-11] MEDS: levETIRAcetam 500 MG/5 ML INJECTION VIAL IVPB SCH ×2 (12:52→21:56)
--- NOTE | 2019-06-11 14:01 | PN ---
Progress Note (short form) - Note Progress Note: GI CONSULT DICTATED F/U GASTROGRAFFIN TUBE STUDY IF NO VAZQUEZ RESUME FEEDS / MEDS IN THE INTERIM WILL LOCATE REPLACEMENT PEG TUBE
[2019-06-11] MEDS: amLODIPine BESYLATE 5 MG TABLET (FP) GT SCH ×2 (15:07→17:45)
--- NOTE | 2019-06-11 15:45 | CONS ---
DATE OF CONSULTATION: DATE OF DICTATION: 06/11/2019 HISTORY OF PRESENT ILLNESS: The patient is a 74-year-old male with a past medical history of advanced dementia, seizure disorder, CVA, atrial fibrillation, hypertension, hyperlipidemia, dysphagia, who was admitted from the [facility] facility with complaints of tachypnea. Patient is nonverbal. HPI is limited. During the night, apparently his PEG tube was dislodged. History is obtained by the nurse at the bedside. PAST MEDICAL AND SURGICAL HISTORY: As listed in the HPI. ALLERGIES: No known drug allergies. HOME MEDICATIONS: Includes Tylenol, amlodipine, Eliquis, Lipitor, B12, Depakote, multivitamin, senna, and Levetiracetam. REVIEW OF SYSTEMS: Unable to obtain secondary to the patient's advanced dementia. PHYSICAL EXAMINATION: Vital Signs: Temperature 97, pulse 50, respiratory rate 12, blood pressure 145/76. General: No acute distress. HEENT: Anicteric sclerae. Cardiovascular: S1, S2, regular rate and rhythm. Lungs: Bilaterally clear to auscultation anteriorly. Abdomen: Soft, nontender. Miller tube was put in, to replace, as per my earlier recommendations. Extremities: Without edema. LABORATORY DATA: White blood cell count 9.1, hemoglobin 11, hematocrit 33, MCV 89, platelet count 260. INR 1.57. Sodium 140, potassium 3.4, BUN 17, creatinine 0.3, glucose 59. AST 25, ALT 20, alkaline phosphatase 92. Urine is negative. Influenza was negative. Cultures are negative. IMPRESSION: Dislodged PEG tube, now replaced with a Miller tube temporarily. RECOMMEND: Abdominal x-ray, to be followed up with Gastrografin to confirm tube placement. If tube is confirmed in place, can use the tube for feeds as well as medication. In the interim, will locate a permanent replacement gastrostomy tube for this patient. Will follow. DO ZARA JACKSON/[id number]
[2019-06-11] MEDS: ENOXAPARIN NA (PORCINE) 60 MG/0.6 ML DISP.SYRIN SQ SCH (18:38)
--- NOTE | 2019-06-11 21:53 | PN ---
Progress Note (short form) - Note Progress Note: ID CONSULT DICTATED [place] ACQUIRED RLL PNEUMONIA R/O SEPSIS SECONDARY TO PNEUMONIA PENDING C/S EMPIRIC ZOSYN
[2019-06-11] MEDS: ATORVASTATIN CA 20 MG TABLET (FP) GT SCH (21:56)
[2019-06-11] MEDS ORDERED: ENOXAPARIN NA (PORCINE) 60 MG/0.6 ML DISP.SYRIN SQ SCH (22:00)
[2019-06-11 22:35] VITALS: BMI 22.6
[2019-06-12] MEDS ORDERED: PIPERACILLIN/TAZOBACTAM 3.375 GM VIAL IVPB ONE ×4 (00:45→19:50)
[2019-06-12] MEDS ORDERED: DEXTROSE 5%-WATER - 50 ML IVPB ONE ×4 (00:46→19:51)
[2019-06-12] MEDS: PIPERACILLIN/TAZOB 3.375 GM 3.375 GM in DEXTROSE 5%-WATER - 50 ML IVPB SCH ×4 (01:24→11:06)
[2019-06-12 02:31] LABS: BASO % 0.3 % (0-2.0); EOS % 0.5 % (0-4.5); HEMATOCRIT 36.7 % (35.4-49); LYMPH % 18.4 % (8-40); MCH 29.6 pg (25.7-33.7); MCHC 32.6 g/dl (32.0-35.9); MEAN CELL VOLUME 90.8 fl (80-96); MONO % 6.2 % (3.8-10.2); NEUT % 74.6 % (42.8-82.8); RBC 4.05 M/mm3 (4.00-5.60); WHITE BLOOD COUNT 7.4 K/mm3 (4.0-10.0)
[2019-06-12] MEDS: SODIUM CHLORIDE 1,000 ML IV SCH (06:13)
--- NOTE | 2019-06-12 07:06 | PN.GI ---
GI Progress Note Subjective: NO NEW COMPLAINTS STATUS UNCHANGED - Objective Vital Signs: Vital Signs Temperature 97.5 F L 06/12/19 05:00 Pulse Rate 75 06/12/19 05:00 Respiratory Rate 20 06/12/19 05:00 Blood Pressure 147/92 06/12/19 05:00 O2 Sat by Pulse Oximetry (%) 100 06/11/19 22:00 Constitutional: Well Nourished, No Distress Cardiovascular: Yes: WNL, Regular Rate and Rhythm Respiratory: Yes: WNL, Regular, CTA Bilaterally Gastrointestinal Inspection: Yes: WNL ...Auscultate: Yes: Normoactive Bowel Sounds, Other (MORA TUBE IN PLACE OF PEG) Extremities: Yes: WNL Labs: CBC, BMP 06/12/19 01:50 06/11/19 07:32 INR, PTT INR 1.57 (0.83-1.09) H 06/09/19 18:05 Problem List - Problems (1) Encounter for PEG (percutaneous endoscopic gastrostomy) Assessment/Plan: REPLACED MORA WITH A 16 PAPUA [place] REPLACEMENT PERCUTANEOUS GASTROSTOMY TUBE EXTERNAL BOLSTER AT 3CM. GASTROGRAFFIN TUBE STUDY ORDERED - IF TUBE IN PLACE CAN USE FOR FEEDS AND MEDS CHANGE PEG TUBE DRESSING BID Code(s): Z43.1 - ENCOUNTER FOR ATTENTION TO GASTROSTOMY (2) CVA (cerebral vascular accident) Code(s): I63.9 - CEREBRAL INFARCTION, UNSPECIFIED (3) Dementia Code(s): F03.90 - UNSPECIFIED DEMENTIA WITHOUT BEHAVIORAL DISTURBANCE Qualifiers: Dementia type: unspecified type Dementia behavioral disturbance: with behavioral disturbance Qualified Code(s): F03.91 - Unspecified dementia with behavioral disturbance
[2019-06-12 07:36] LABS: PLATELET COUNT 125 K/MM3 (134-434)
[2019-06-12 08:33] LABS: BASO % 0.4 % (0-2.0); EOS % 0.5 % (0-4.5); HEMATOCRIT 31.7 % (35.4-49); HEMOGLOBIN 10.5 GM/dL (11.7-16.9); LYMPH % 15.1 % (8-40); MCHC 33.1 g/dl (32.0-35.9); MEAN CELL VOLUME 90.6 fl (80-96); MEAN PLT VOLUME 7.7 fl (7.5-11.1); MONO % 8.3 % (3.8-10.2); NEUT % 75.7 % (42.8-82.8); PLATELET COUNT 226 K/MM3 (134-434); RDW 15.8 % (11.9-15.9); WHITE BLOOD COUNT 6.9 K/mm3 (4.0-10.0)
[2019-06-12 08:48] LABS: BLOOD UREA NITROGEN 13.5 mg/dL (7-18); CALCIUM 7.9 mg/dL (8.5-10.1); CREATININE 0.3 mg/dL (0.55-1.3); MAGNESIUM 2.2 mg/dL (1.8-2.4); POTASSIUM 3.2 mmol/L (3.5-5.1)
--- NOTE | 2019-06-12 10:39 | CONS ---
INFECTIOUS DISEASE CONSULTATION DATE OF CONSULTATION: DATE OF DICTATION: 06/11/2019 HISTORY: The patient is a 74-year-old [facility] resident who was evaluated for pneumonia. History was obtained from the chart as he cannot give a history secondary to his dementia. He is a [facility] resident. He was noted at the facility to have worsening shortness of breath and hypoxemia. He was transferred to the emergency room where the patient was noted to be short of breath. Chest x-ray showed increased markings at the right base. CAT scan of the chest confirmed the presence of a right lower lobe infiltrate. Cultures were obtained. He was empirically treated with vancomycin and Zosyn. At the present time, he is awake, but he is not verbally responsive. He is in no acute respiratory distress. No recent hospitalizations on record. No history of multidrug-resistant pathogens. PAST MEDICAL HISTORY: Positive for dementia, stroke, seizures, atrial fibrillation, hypertension, hyperlipidemia. ALLERGIES: No known allergies. MEDICATIONS: At the present time include vancomycin, Zosyn, Norvasc, Lipitor, Aricept. SOCIAL HISTORY: He is a [facility] resident. Dependent in activities of daily living. No active tobacco or alcohol use. LABORATORY DATA: White count on admission 12.5, presently 9.1, hematocrit 33.4, platelets 260, creatinine 0.3. Liver enzymes normal. Urine, leukocyte esterase negative. Influenza swab negative. PHYSICAL EXAMINATION: General: He is awake. He is not acutely toxic appearing in no acute respiratory distress. Vital Signs: Temperature 98.2, blood pressure 147/96, pulse 55 regular, respirations 20 per minute. HEENT: Sclerae anicteric. Heart: Sounds S1, S2. Lungs: Poor inspiratory effort. Abdomen: Soft and nontender. Extremities: Positive for edema. IMPRESSION: 1. [facility]-acquired right lower lobe pneumonia. 2. Rule out sepsis secondary to pneumonia. 3. Dementia. 4. Status post cerebrovascular accident. PLAN: Await culture results. Continue empiric antibiotic coverage with Zosyn. Aspiration precautions. We will follow. Thank you for the kind referral. KATHLEEN NG M.D. [id number]
[2019-06-12] MEDS: amLODIPine BESYLATE 5 MG TABLET (FP) GT SCH (11:07)
[2019-06-12] MEDS: AMINO ACIDS/PROTEIN HYDROLYS 30 ML LIQUID.PKT GT SCH ×2 (11:07→18:39)
[2019-06-12] MEDS: DONEPEZIL HCL 10 MG TABLET (FP) GT SCH (11:08)
[2019-06-12] MEDS: SENNOSIDES 8.8 MG/5 ML BULK BOTTLE GT SCH ×3 (11:08→22:47)
[2019-06-12] MEDS: levETIRAcetam 500 MG/5 ML INJECTION VIAL IVPB SCH ×2 (11:10→22:46)
[2019-06-12] MEDS: VALPROATE SODIUM 500 MG/5 ML VIAL IVPB SCH ×2 (11:28→23:08)
--- NOTE | 2019-06-12 11:36 | PN ---
Physical Exam: SUBJECTIVE: Patient seen and examined. He is non-verbal. He appears comfortable. G-tube feeds held overnight because of bloody stool. OBJECTIVE: Vital Signs Period Temp Pulse Resp BP Sys/Palacios Pulse Ox Last 24 Hr 97.5 F-98.4 F 42-85 20-21 119-158/62-96 100-100 HEART: S1S2, RRR, (+) 2/6 SM LUNGS: Clear ABDOMEN: Soft, non-distended, normal BS, G-tube in place EXTREMITIES: No edema Laboratory Results - last 24 hr 06/12/19 06/12/19 06/12/19 01:50 07:46 07:46 WBC 7.4 6.9 RBC 4.05 3.50 L Hgb 12.0 10.5 L Hct 36.7 31.7 L MCV 90.8 90.6 MCH 29.6 30.0 MCHC 32.6 33.1 RDW 16.0 H 15.8 Plt Count 125 L D 226 D MPV 9.0 D 7.7 D Absolute Neuts (auto) 5.6 5.2 Neutrophils % 74.6 75.7 Lymphocytes % 18.4 D 15.1 Monocytes % 6.2 8.3 Eosinophils % 0.5 0.5 Basophils % 0.3 0.4 Nucleated RBC % 0 0 Sodium 143 Potassium 3.2 L Chloride 105 Carbon Dioxide 32 Anion Gap 6 L BUN 13.5 Creatinine 0.3 L Est GFR (CKD-EPI)AfAm 150.50 Est GFR (CKD-EPI)NonAf 129.85 Random Glucose 65 L Calcium 7.9 L Magnesium 2.2 Active Medications Generic Name Dose Route Start Last Admin Trade Name Evaristoq PRN Reason Stop Dose Admin Acetaminophen 325 mg 06/10/19 19:41 Tylenol Oral Solution - GT Q4H PRN FEVER Amino Acids 30 ml 06/10/19 17:30 06/12/19 11:07 Prosource No Carb Liquid Pkt GT 30 ml BID@0800,1730 [facility] Administration Amlodipine Besylate 5 mg 06/10/19 19:35 06/12/19 11:07 Norvasc - GT 5 mg DAILY CHRIS Administration Amoxicillin/Clavulanate Potassium 600 mg 06/10/19 19:45 06/11/19 09:41 Augmentin 600 Mg/5 Ml Oral Suspension - PO Not Given BID@0800,1730 [facility] Atorvastatin Calcium 20 mg 06/10/19 22:00 06/11/19 21:56 Lipitor - GT 20 mg HS CHRIS Administration Donepezil HCl 10 mg 06/10/19 19:15 06/12/19 11:08 Aricept - GT 10 mg DAILY CHRIS Administration Enoxaparin Sodium 60 mg 06/11/19 18:15 06/11/19 18:38 Lovenox - SQ 60 mg ONCE CHRIS Administration Sodium Chloride 1,000 mls @ 75 mls/hr 06/10/19 05:45 06/12/19 06:13 Normal Saline - IV Not Given ASDIR CHRIS Piperacillin Sod/Tazobactam 50 mls @ 100 mls/hr 06/11/19 18:00 Sod 3.375 gm/ Dextrose IVPB Q8H-IV CHRIS Protocol Piperacillin Sod/Tazobactam 50 mls @ 100 mls/hr 06/11/19 18:00 06/12/19 11:06 Sod 3.375 gm/ Dextrose IVPB 06/12/19 17:59 100 mls/hr Q8H-IV CHRIS Administration Protocol Levetiracetam 1,000 mg 06/11/19 10:00 06/12/19 11:10 Keppra Injection - IVPB 1,000 mg BID [facility]IS Administration Multivitamins/Minerals 15 ml 06/11/19 10:00 06/11/19 10:29 Certavite-Antioxidant Liquid GT Not Given DAILY CHRIS Senna 8.8 mg 06/10/19 22:00 06/12/19 11:23 Senna Oral Solution - GT Not Given BID [facility] Valproate Sodium 250 mg 06/11/19 10:14 06/12/19 11:28 Depacon Injection - IVPB 250 mg BID CHRIS Administration ASSESSMENT/PLAN: This is a 74 year old man with a history of HTN, hyperlipidemia, atrial fib, advanced dementia, seizure disorder, CVA, dysphagia who was sent to the ED from [facility] for respiratory distress. 1. Acute hypoxic respiratory failure secondary to aspiration pneumonia - Continue Zosyn 2. Rectal bleeding - Monitor for further bleeding - Monitor hemoglobin 3. Moderate malnutrition - If no signs of bleeding, will resume G-tube feeds - Continue ProSource 4. Right internal jugular/subclavian vein thrombus - Continue Lovenox - Monitor hemoglobin as bowel movement was bloody overnight 5. HTN - Continue Norvasc 6. Hyperlipidemia - Continue Lipitor 7. History of atrial fib - Currently in sinus rhythm - Continue Lovenox 8. Seizure disorder - Continue [place] 9. History of CVA 10. Dysphagia 11. Dementia - Continue Aricept Visit type - Emergency Visit Emergency Visit: Yes ED Registration Date: 06/10/19 Care time: The patient presented to the Emergency Department on the above date and was hospitalized for further evaluation of their emergent condition. - New Patient This patient is new to me today: Yes Date on this admission: 06/12/19 - Critical Care Critical Care patient: No - Discharge Referral Referred to [facility] Med P.C.: No
[2019-06-12] MEDS: MULTIVIT-MINERALS ORAL LIQUID GT SCH (13:23)
[2019-06-12] MEDS ORDERED: PIPERACILLIN/TAZOB 3.375 GM 3.375 GM in DEXTROSE 5%-WATER - 50 ML IVPB SCH (19:15)
[2019-06-12] MEDS: ENOXAPARIN NA (PORCINE) 60 MG/0.6 ML DISP.SYRIN SQ SCH (19:16)
[2019-06-12] MEDS ORDERED: PT OWN MED DRAWER 7, Y5N ONE ×3 (19:18→22:58)
--- NOTE | 2019-06-12 20:26 | PN ---
Progress Note, Physician History of Present Illness: MORE AWAKE, RESPONSIVE NOT VERBALLY RESPONSIVE AFEBRILE CULTURES PENDING - Current Medication List Current Medications: Active Medications Acetaminophen (Tylenol Oral Solution -) 325 mg GT Q4H PRN PRN Reason: FEVER Amino Acids (Prosource No Carb Liquid Pkt) 30 ml GT BID@0800,1730 [facility] Last Admin: 06/12/19 18:39 Dose: 30 ml Amlodipine Besylate (Norvasc -) 5 mg GT DAILY [facility] Last Admin: 06/12/19 11:07 Dose: 5 mg Amoxicillin/Clavulanate Potassium (Augmentin 600 Mg/5 Ml Oral Suspension -) 600 mg PO BID@0800,1730 [facility] Last Admin: 06/11/19 09:41 Dose: Not Given Atorvastatin Calcium (Lipitor -) 20 mg GT HS [facility] Last Admin: 06/11/19 21:56 Dose: 20 mg Donepezil HCl (Aricept -) 10 mg GT DAILY [facility] Last Admin: 06/12/19 11:08 Dose: 10 mg Sodium Chloride (Normal Saline -) 1,000 mls @ 75 mls/hr IV ASDIR [facility] Last Admin: 06/12/19 06:13 Dose: Not Given Piperacillin Sod/Tazobactam (Sod 3.375 gm/ Dextrose) 50 mls @ 100 mls/hr IVPB Q8H-IV CHRIS; Protocol Levetiracetam (Keppra Injection -) 1,000 mg IVPB BID [facility] Last Admin: 06/12/19 11:10 Dose: 1,000 mg Multivitamins/Minerals (Certavite-Antioxidant Liquid) 15 ml GT DAILY [facility] Last Admin: 06/12/19 13:23 Dose: Not Given Senna (Senna Oral Solution -) 8.8 mg GT BID [facility] Last Admin: 06/12/19 11:23 Dose: Not Given Valproate Sodium (Depacon Injection -) 250 mg IVPB BID [facility] Last Admin: 06/12/19 11:28 Dose: 250 mg - Objective Vital Signs: Vital Signs Temperature 98 F 06/12/19 16:30 Pulse Rate 69 06/12/19 16:30 Respiratory Rate 20 06/12/19 17:59 Blood Pressure 121/60 06/12/19 16:30 O2 Sat by Pulse Oximetry (%) 100 06/12/19 17:59 Constitutional: Yes: No Distress Cardiovascular: Yes: Regular Rate and Rhythm, S1, S2 Respiratory: Yes: Diminished Gastrointestinal: Yes: Normal Bowel Sounds, Soft Edema: Yes Labs: CBC, BMP 06/12/19 07:46 06/12/19 07:46 INR, PTT INR 1.57 (0.83-1.09) H 06/09/19 18:05 Assessment/Plan HCAP RLL PNEUMONIA R/O SEPSIS SECONDARY TO UTI AWAIT C/S CONTINUE EMPIRIC ZOSYN
[2019-06-12] MEDS: ATORVASTATIN CA 20 MG TABLET (FP) GT SCH (22:45)
[2019-06-13] MEDS ORDERED: PT OWN MED DRAWER 7, Y5N ONE ×8 (00:36→22:50)
[2019-06-13] MEDS: SODIUM CHLORIDE 1,000 ML IV SCH (06:51)
[2019-06-13 08:42] LABS: BASO % 0.6 % (0-2.0); EOS % 0.4 % (0-4.5); HEMATOCRIT 32.5 % (35.4-49); HEMOGLOBIN 10.6 GM/dL (11.7-16.9); LYMPH % 20.1 % (8-40); MCH 29.8 pg (25.7-33.7); MCHC 32.6 g/dl (32.0-35.9); MEAN CELL VOLUME 91.4 fl (80-96); MEAN PLT VOLUME 7.9 fl (7.5-11.1); MONO % 7.4 % (3.8-10.2); NEUT % 71.5 % (42.8-82.8); PLATELET COUNT 218 K/MM3 (134-434); RBC 3.56 M/mm3 (4.00-5.60); RDW 15.6 % (11.9-15.9)
[2019-06-13 09:09] LABS: BLOOD UREA NITROGEN 12.6 mg/dL (7-18); CALCIUM 7.8 mg/dL (8.5-10.1); CREATININE 0.2 mg/dL (0.55-1.3); POTASSIUM 3.9 mmol/L (3.5-5.1)
[2019-06-13] MEDS ORDERED: DEXTROSE 50%-WATER - 25 GM/50 ML VIAL IVPUSH ONE (09:28)
[2019-06-13] MEDS ORDERED: DEXTROSE 50%-WATER 25 GM/50 ML DISP.SYRIN ONE (09:28)
[2019-06-13] MEDS ORDERED: DEXTROSE 5%-NORMAL SALINE 1,000 ML IV SCH (10:00)
[2019-06-13] MEDS ORDERED: APIXABAN 5 MG TABLET PO SCH (10:00)
[2019-06-13] MEDS ORDERED: DEXTROSE 5%-WATER - 50 ML IVPB ONE ×2 (10:02→17:38)
[2019-06-13] MEDS ORDERED: PIPERACILLIN/TAZOBACTAM 3.375 GM VIAL IVPB ONE ×2 (10:02→17:38)
[2019-06-13] MEDS: AMINO ACIDS/PROTEIN HYDROLYS 30 ML LIQUID.PKT GT SCH ×2 (10:13→17:44)
[2019-06-13] MEDS: PIPERACILLIN/TAZOB 3.375 GM 3.375 GM in DEXTROSE 5%-WATER - 50 ML IVPB SCH ×2 (10:13→17:44)
[2019-06-13] MEDS: amLODIPine BESYLATE 5 MG TABLET (FP) GT SCH (10:13)
[2019-06-13] MEDS: DONEPEZIL HCL 10 MG TABLET (FP) GT SCH (10:13)
[2019-06-13] MEDS: SENNOSIDES 8.8 MG/5 ML BULK BOTTLE GT SCH ×2 (10:14→22:15)
[2019-06-13] MEDS: APIXABAN 5 MG TABLET PEG SCH ×2 (11:47→22:17)
[2019-06-13] MEDS: MULTIVIT-MINERALS ORAL LIQUID GT SCH (11:47)
[2019-06-13] MEDS: levETIRAcetam 500 MG/5 ML INJECTION VIAL IVPB SCH (11:48)
[2019-06-13] MEDS: VALPROATE SODIUM 500 MG/5 ML VIAL IVPB SCH (12:35)
--- NOTE | 2019-06-13 16:08 | PN ---
Physical Exam: SUBJECTIVE: Patient seen and examined at bedside. pt was in no acute distress and did not verbalize complaints OBJECTIVE: Vital Signs Period Temp Pulse Resp BP Sys/Palacios Pulse Ox Last 24 Hr 97.7 F-98.1 F 68-82 15-20 109-128/58-80 100-100 GENERAL: The patient is awake, alert, and fully oriented, in no acute distress. LUNGS: Breath sounds equal, no wheezes, no crackles, no accessory muscle use. HEART: Regular rate and rhythm, S1, S2 without murmur, rub or gallop. ABDOMEN: Soft, nontender, nondistended, normoactive bowel sounds, no guarding EXTREMITIES: 2+ pulses, warm, well-perfused, no edema. SKIN: Warm, dry, normal turgor, no rashes or lesions noted Laboratory Last Values WBC 7.0 K/mm3 (4.0-10.0) 06/13/19 07:46 RBC 3.56 M/mm3 (4.00-5.60) L 06/13/19 07:46 Hgb 10.6 GM/dL (11.7-16.9) L 06/13/19 07:46 Hct 32.5 % (35.4-49) L 06/13/19 07:46 MCV 91.4 fl (80-96) 06/13/19 07:46 MCH 29.8 pg (25.7-33.7) 06/13/19 07:46 MCHC 32.6 g/dl (32.0-35.9) 06/13/19 07:46 RDW 15.6 % (11.9-15.9) 06/13/19 07:46 Plt Count 218 K/MM3 (134-434) 06/13/19 07:46 MPV 7.9 fl (7.5-11.1) 06/13/19 07:46 Absolute Neuts (auto) 5.0 K/mm3 (1.5-8.0) 06/13/19 07:46 Neutrophils % 71.5 % (42.8-82.8) 06/13/19 07:46 Lymphocytes % 20.1 % (8-40) D 06/13/19 07:46 Monocytes % 7.4 % (3.8-10.2) 06/13/19 07:46 Eosinophils % 0.4 % (0-4.5) 06/13/19 07:46 Basophils % 0.6 % (0-2.0) 06/13/19 07:46 Nucleated RBC % 0 % (0-0) 06/13/19 07:46 PT with INR 18.60 SEC (9.7-13.0) H 06/09/19 18:05 INR 1.57 (0.83-1.09) H 06/09/19 18:05 PTT (Actin FS) 36.0 SECONDS (25.2-36.5) 06/09/19 18:05 Anticoagulation Therapy No Result Required. 06/09/19 18:15 Puncture Site No Result Required. 06/09/19 18:15 ABG pH 7.60 (7.35-7.45) H 06/09/19 18:15 ABG pCO2 at Pt Temp 33.2 mmHg (35-45) L 06/09/19 18:15 ABG pO2 at Pt Temp 199 mmHg (80-100) H 06/09/19 18:15 ABG HCO3 32.8 mmol/L (22-27) H 06/09/19 18:15 ABG O2 Sat (Measured) 99.8 % (95-98) H 06/09/19 18:15 ABG O2 Content 14.9 % vol 06/09/19 18:15 ABG Base Excess 10.4 meq/l (-2-2) H 06/09/19 18:15 Kvng Test Positive 06/09/19 18:15 Carboxyhemoglobin 1.3 % (0-2) 06/09/19 18:15 Methemoglobin < 1.0 % (0-2) 06/09/19 18:15 O2 Delivery Device No Result Required. 06/09/19 18:15 Oxygen Flow Rate No Result Required. 06/09/19 18:15 Vent Mode No Result Required. 06/09/19 18:15 Vent Rate No Result Required. 06/09/19 18:15 Mechanical Rate No Result Required. 06/09/19 18:15 Pressure Support Vent No Result Required. 06/09/19 18:15 Sodium 144 mmol/L (136-145) 06/13/19 07:46 Potassium 3.9 mmol/L (3.5-5.1) 06/13/19 07:46 Chloride 109 mmol/L (98-107) H 06/13/19 07:46 Carbon Dioxide 27 mmol/L (21-32) 06/13/19 07:46 Anion Gap 8 MMOL/L (8-16) 06/13/19 07:46 BUN 12.6 mg/dL (7-18) 06/13/19 07:46 Creatinine 0.2 mg/dL (0.55-1.3) L 06/13/19 07:46 Est GFR (CKD-EPI)AfAm 177.79 06/13/19 07:46 Est GFR (CKD-EPI)NonAf 153.40 06/13/19 07:46 POC Glucometer 118 UNITS (80-120) 06/13/19 10:42 Random Glucose 121 mg/dL (74-106) H 06/13/19 11:25 Lactic Acid 0.7 mmol/L (0.4-2.0) 06/10/19 04:28 Calcium 7.8 mg/dL (8.5-10.1) L 06/13/19 07:46 Phosphorus 3.0 mg/dL (2.5-4.9) 06/13/19 07:46 Magnesium 2.0 mg/dL (1.8-2.4) 06/13/19 07:46 Total Bilirubin 0.5 mg/dL (0.2-1) 06/11/19 07:32 AST 25 U/L (15-37) 06/11/19 07:32 ALT 20 U/L (13-61) 06/11/19 07:32 Alkaline Phosphatase 92 U/L (45-117) 06/11/19 07:32 Creatine Kinase 45 U/L (26-308) 06/10/19 04:28 Troponin I < 0.02 ng/ml (0.00-0.05) 06/10/19 04:28 B-Natriuretic Peptide 1664.8 pg/ml (5-450) H 06/09/19 18:05 Total Protein 5.8 g/dl (6.4-8.2) L 06/11/19 07:32 Albumin 2.0 g/dl (3.4-5.0) L 06/11/19 07:32 TSH 3.60 uIU/ml (0.358-3.74) 06/10/19 04:28 Urine Color Yellow 06/09/19 21:00 Urine Appearance Clear 06/09/19 21:00 Urine pH 7.0 (5.0-8.0) 06/09/19 21:00 Ur Specific [place] 1.032 (1.010-1.035) 06/09/19 21:00 Urine Protein Negative (NEGATIVE) 06/09/19 21:00 Urine Glucose (UA) Negative (NEGATIVE) 06/09/19 21:00 Urine Ketones Negative (NEGATIVE) 06/09/19 21:00 Urine Blood Negative (NEGATIVE) 06/09/19 21:00 Urine Nitrite Negative (NEGATIVE) 06/09/19 21:00 Urine Bilirubin Negative (NEGATIVE) 06/09/19 21:00 Urine Urobilinogen 0.2 mg/dL (0.2-1.0) 06/09/19 21:00 Ur Leukocyte Esterase Negative (NEGATIVE) 06/09/19 21:00 Influenza A (Rapid) Negative (Negative) 06/10/19 04:28 Influenza B (Rapid) Negative (Negative) 06/10/19 04:28 Current Medications Acetaminophen (Tylenol Oral Solution -) 325 mg GT Q4H PRN PRN Reason: FEVER Amino Acids (Prosource No Carb Liquid Pkt) 30 ml GT BID@0800,1730 [facility] Last Admin: 06/13/19 10:13 Dose: 30 ml Amlodipine Besylate (Norvasc -) 5 mg GT DAILY [facility] Last Admin: 06/13/19 10:13 Dose: 5 mg Apixaban (Eliquis -) 5 mg PEG BID [facility] Last Admin: 06/13/19 11:47 Dose: 5 mg Atorvastatin Calcium (Lipitor -) 20 mg GT HS [facility] Last Admin: 06/12/19 22:45 Dose: 20 mg Donepezil HCl (Aricept -) 10 mg GT DAILY [facility] Last Admin: 06/13/19 10:13 Dose: 10 mg Piperacillin Sod/Tazobactam (Sod 3.375 gm/ Dextrose) 50 mls @ 100 mls/hr IVPB Q8H-IV [facility]RIS; Protocol Last Admin: 06/13/19 10:13 Dose: 100 mls/hr Lactobacillus Acidophilus (Bacid -) 1 tab GT BID [facility] Levetiracetam (Keppra Injection -) 1,000 mg IVPB BID [facility] Last Admin: 06/13/19 11:48 Dose: 1,000 mg Multivitamins/Minerals (Certavite-Antioxidant Liquid) 15 ml GT DAILY [facility] Last Admin: 06/13/19 11:47 Dose: 15 ml Senna (Senna Oral Solution -) 8.8 mg GT BID [facility] Last Admin: 06/13/19 10:14 Dose: Not Given Valproate Sodium (Depacon Injection -) 250 mg IVPB BID [facility] Last Admin: 06/13/19 12:35 Dose: [address] Chest: 1. Ill-defined opacities in the lower lobes compatible with a combination of pneumonitis and subsegmental atelectasis in a background of pulmonary venous congestion with multiple scattered groundglass opacities in both lungs. The possibility of aspiration pneumonitis should be considered given small debris in bilateral main bronchi. Small bilateral pleural effusions. One or more of the following dose reduction techniques were used: automated exposure control, adjustment of the mA and/or kV according to patient size, use of iterative reconstructive technique. ASSESSMENT/PLAN: 74 yo M PMH of advanced Dementia, seizure disorder, CVA, afib, HTN, HLD, dysphagia presenting from [facility] for aspiration pneumonitis. Acute hypoxic respiratory failure 2/2 aspiration pneumonitis - CT scan reviewed, please see above -on zosyn day 2 - ID consulted - Flu negative - legionella/strep negative - blood cultures negative to date Failure to Thrive - Jevity 1.5 resumed as per dietary eval - change PEG tube dressing BID R internal jugular and R subclavian vein thrombus - as noted on duplex - on Eliquis 5 BID HTN - continue home amlodipine HLD - continue home atorvastatin Afib - on Eliquis 5 BID Seizure - c/w Keppra and Depakote - continue aspiration precautions - keep HOB elevated Dementia - continue home Aricept DVT ppx -Eliquis 5 BID Dispo - continue to monitor on Med-surg Visit type - Emergency Visit Emergency Visit: No - New Patient This patient is new to me today: No - Critical Care Critical Care patient: No - Discharge Referral Referred to [facility] No ATTENDING PHYSICIAN STATEMENT I saw and evaluated the patient. I reviewed the resident's note and discussed the case with the resident. I agree with the resident's findings and plan as documented. SUBJECTIVE: OBJECTIVE: ASSESSMENT AND PLAN:
--- NOTE | 2019-06-13 18:14 | PN ---
Teaching Attending Note Name of Resident: Malou Doe ATTENDING PHYSICIAN STATEMENT I saw and evaluated the patient. I reviewed the resident's note and discussed the case with the resident. I agree with the resident's findings and plan as documented. SUBJECTIVE: Patient appears comfortable. Opens eyes. G-tube feeds held overnight because of diarrhea. OBJECTIVE: Vital Signs Period Temp Pulse Resp BP Sys/Palacios Pulse Ox Last 24 Hr 97.7 F-98.1 F 68-82 15-20 109-128/58-80 100-100 HEART: S1S2, RRR, (+) 2/6 SM LUNGS: Clear ABDOMEN: Soft, non-distended, normal BS, G-tube in place EXTREMITIES: 1+ edema Laboratory Results - last 24 hr 06/13/19 06/13/19 06/13/19 07:46 07:46 09:25 WBC 7.0 RBC 3.56 L Hgb 10.6 L Hct 32.5 L MCV 91.4 MCH 29.8 MCHC 32.6 RDW 15.6 Plt Count 218 MPV 7.9 Absolute Neuts (auto) 5.0 Neutrophils % 71.5 Lymphocytes % 20.1 D Monocytes % 7.4 Eosinophils % 0.4 Basophils % 0.6 Nucleated RBC % 0 Sodium 144 Potassium 3.9 Chloride 109 H Carbon Dioxide 27 Anion Gap 8 BUN 12.6 Creatinine 0.2 L Est GFR (CKD-EPI)AfAm 177.79 Est GFR (CKD-EPI)NonAf 153.40 POC Glucometer 28 Random Glucose 34 L* Calcium 7.8 L Phosphorus 3.0 Magnesium 2.0 06/13/19 06/13/19 06/13/19 10:42 11:25 17:53 WBC RBC Hgb Hct MCV MCH MCHC RDW Plt Count MPV Absolute Neuts (auto) Neutrophils % Lymphocytes % Monocytes % Eosinophils % Basophils % Nucleated RBC % Sodium Potassium Chloride Carbon Dioxide Anion Gap BUN Creatinine Est GFR (CKD-EPI)AfAm Est GFR (CKD-EPI)NonAf POC Glucometer 118 96 Random Glucose 121 H Calcium Phosphorus Magnesium Current Medications Generic Name Dose Route Start Last Admin Trade Name Freq PRN Reason Stop Dose Admin Acetaminophen 325 mg 06/10/19 19:41 Tylenol Oral Solution - GT Q4H PRN FEVER Amino Acids 30 ml 06/10/19 17:30 06/13/19 17:44 Prosource No Carb Liquid Pkt GT 30 ml BID@0800,1730 [facility]IS Administration Amlodipine Besylate 5 mg 06/10/19 19:35 06/13/19 10:13 Norvasc - GT 5 mg DAILY [facility]IS Administration Apixaban 5 mg 06/13/19 11:30 06/13/19 11:47 Eliquis - PEG 5 mg BID [facility]IS Administration Atorvastatin Calcium 20 mg 06/10/19 22:00 06/12/19 22:45 Lipitor - GT 20 mg HS [facility] Administration Donepezil HCl 10 mg 06/10/19 19:15 06/13/19 10:13 Aricept - GT 10 mg DAILY [facility]IS Administration Piperacillin Sod/Tazobactam 50 mls @ 100 mls/hr 06/13/19 10:00 06/13/19 17:44 Sod 3.375 gm/ Dextrose IVPB 100 mls/hr Q8H-IV [facility]IS Administration Protocol Lactobacillus Acidophilus 1 tab 06/13/19 22:00 Bacid - GT BID [facility] Levetiracetam 1,000 mg 06/13/19 22:00 Keppra Oral Solution - PEG BID [facility]IS Multivitamins/Minerals 15 ml 06/11/19 10:00 06/13/19 11:47 Certavite-Antioxidant Liquid GT 15 ml DAILY [facility] Administration Senna 8.8 mg 06/10/19 22:00 06/13/19 10:14 Senna Oral Solution - GT Not Given BID [facility]IS Valproate Sodium 125 mg 06/13/19 22:00 Depakene - PO BID [facility]IS ASSESSMENT AND PLAN: This is a 74 year old man with a history of HTN, hyperlipidemia, atrial fib, advanced dementia, seizure disorder, CVA, dysphagia who was sent to the ED from [facility] [place] for respiratory distress. 1. Sepsis (tachycardia, tachypnea, leukocytosis) and acute hypoxic respiratory failure secondary to aspiration pneumonia - Continue Zosyn - Blood cultures negative after 72 hours 2. Rectal bleeding - No further bleeding noted - Hemoglobin stable 3. Moderate malnutrition - Resume G-tube feeds - change from Jevity to Vital secondary to diarrhea - Continue ProSource 4. Right internal jugular/subclavian vein thrombus - Continue Eliquis 5. HTN - Continue Norvasc 6. Hyperlipidemia - Continue Lipitor 7. History of atrial fib - Currently in sinus rhythm - Continue Eliquis 8. Seizure disorder - Continue Keppra, Depakene 9. History of CVA 10. Dysphagia 11. Dementia - Continue Aricept
[2019-06-13] MEDS: ATORVASTATIN CA 20 MG TABLET (FP) GT SCH (21:59)
[2019-06-13] MEDS ORDERED: levETIRAcetam 500 MG/5 ML ORAL SOLUTION (UNIT-DOSE CUPS) PO SCH (22:00)
[2019-06-13] MEDS ORDERED: VALPROATE SODIUM 250 MG/5 ML UNIT DOSE CUP PO SCH ×3 (22:00)
[2019-06-13] MEDS ORDERED: DIVALPROEX SODIUM 125 MG SPRINKLE CAPS PEG SCH (22:00)
[2019-06-13] MEDS ORDERED: LACTOBACILLUS ACIDOPHILUS 1 TABLET PO SCH (22:00)
[2019-06-13] MEDS ORDERED: LACTOBACILLUS ACIDOPHILUS 1 TABLET NGT SCH (22:00)
[2019-06-13] MEDS: levETIRAcetam 500 MG/5 ML ORAL SOLUTION (UNIT-DOSE CUPS) PEG SCH (22:14)
[2019-06-13] MEDS: VALPROATE SODIUM 250 MG/5 ML UNIT DOSE CUP GT SCH (22:14)
[2019-06-13] MEDS: LACTOBACILLUS ACIDOPHILUS 1 TABLET GT SCH (22:17)
[2019-06-14] MEDS ORDERED: PIPERACILLIN/TAZOBACTAM 3.375 GM VIAL IVPB ONE ×3 (01:23→18:17)
[2019-06-14] MEDS ORDERED: DEXTROSE 5%-WATER - 50 ML IVPB ONE ×3 (01:24→18:17)
[2019-06-14] MEDS: PIPERACILLIN/TAZOB 3.375 GM 3.375 GM in DEXTROSE 5%-WATER - 50 ML IVPB SCH ×3 (01:50→18:19)
[2019-06-14] MEDS ORDERED: PT OWN MED DRAWER 7, Y5N ONE ×4 (10:15→20:41)
[2019-06-14] MEDS: MULTIVIT-MINERALS ORAL LIQUID GT SCH (11:12)
[2019-06-14] MEDS: levETIRAcetam 500 MG/5 ML ORAL SOLUTION (UNIT-DOSE CUPS) PEG SCH ×2 (11:13→21:30)
[2019-06-14] MEDS: AMINO ACIDS/PROTEIN HYDROLYS 30 ML LIQUID.PKT GT SCH ×2 (11:14→18:19)
[2019-06-14] MEDS: VALPROATE SODIUM 250 MG/5 ML UNIT DOSE CUP GT SCH ×2 (11:14→21:31)
[2019-06-14] MEDS: DONEPEZIL HCL 10 MG TABLET (FP) GT SCH (11:15)
[2019-06-14] MEDS: amLODIPine BESYLATE 5 MG TABLET (FP) GT SCH (11:16)
[2019-06-14] MEDS: LACTOBACILLUS ACIDOPHILUS 1 TABLET GT SCH ×2 (11:16→21:31)
[2019-06-14] MEDS: SENNOSIDES 8.8 MG/5 ML BULK BOTTLE GT SCH ×2 (11:17→21:48)
[2019-06-14 13:24] LABS: BASO % 0.7 % (0-2.0); EOS % 1.5 % (0-4.5); HEMATOCRIT 30.4 % (35.4-49); HEMOGLOBIN 9.9 GM/dL (11.7-16.9); LYMPH % 21.6 % (8-40); MCH 29.7 pg (25.7-33.7); MCHC 32.6 g/dl (32.0-35.9); MEAN CELL VOLUME 90.9 fl (80-96); MEAN PLT VOLUME 7.3 fl (7.5-11.1); MONO % 8.6 % (3.8-10.2); NEUT % 67.6 % (42.8-82.8); PLATELET COUNT 220 K/MM3 (134-434); RBC 3.34 M/mm3 (4.00-5.60); RDW 15.6 % (11.9-15.9); WHITE BLOOD COUNT 7.5 K/mm3 (4.0-10.0)
[2019-06-14 13:56] LABS: ALBUMIN 1.8 g/dl (3.4-5.0); BILIRUBIN,TOTAL 0.4 mg/dL (0.2-1); BLOOD UREA NITROGEN 12.6 mg/dL (7-18); CALCIUM 7.9 mg/dL (8.5-10.1); CREATININE 0.3 mg/dL (0.55-1.3); MAGNESIUM 1.9 mg/dL (1.8-2.4); PHOSPHOROUS 2.1 mg/dL (2.5-4.9)
[2019-06-14 14:01] LABS: POTASSIUM 2.5 mmol/L (3.5-5.1)
[2019-06-14] MEDS ORDERED: POTASSIUM CHLORIDE 20 MEQ PREMIX IVPB 100 ML IVPB ONE ×2 (14:06→14:07)
[2019-06-14] MEDS ORDERED: POTASSIUM CHLORIDE ORAL LIQUID 20 MEQ/15 ML PO ONE (14:06)
[2019-06-14] MEDS ORDERED: POTASSIUM CHLORIDE ORAL LIQUID 20 MEQ/15 ML GT ONE (14:06)
--- NOTE | 2019-06-14 14:27 | CONSULT ---
Consultation: CONSULT SERVICE: Hematology/Oncology Resident HISTORY OF PRESENT ILLNESS: 73yo M with h/o Dementi, seizure disorder, previous CVA (2018), Afib ( CHADSVAsc 5; Eliquis), HTN, HLD, dysphagia who presented originally from [facility] due to respiratory distress and increased coughing found to have likely aspiration pneumonitis. During his stay about 2 days prior, pt was found to have a bloody bowel movemen in his diaper without significant change in H/H. Pt early this AM was noted to have yet another bloody BM without clots. In addition during his stay he was noted to have upper extremity edema prompting a duplex of the upper extremities which revealed a R IJ thrombus with questionable extension into the subclavian. Pt has never had an central line in his IJ in his prior visits. Pt currently is resting comfortable and is nonverbal so HPI is limited. 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 Family History: Unable to obtain REVIEW OF SYSTEMS: Unable to obtain due to nonverbal nature PHYSICAL EXAMINATION Vital Signs - 24 hr 06/13/19 06/13/19 06/13/19 18:00 19:33 21:00 Temperature 97.4 F L 97.7 F Pulse Rate 71 77 Respiratory 20 20 Rate Blood Pressure 124/64 148/75 O2 Sat by Pulse 100 Oximetry (%) 06/14/19 06/14/19 01:52 06:00 Temperature 98.1 F 97.6 F Pulse Rate 76 Respiratory 19 18 Rate Blood Pressure 125/60 115/93 O2 Sat by Pulse Oximetry (%) Gen: Thin-appearing, NAD, awake, nonverbal today, tracks around the room HEENT: NC/AT, HAYLEY, sclera anicteric, MMM, no discolouration of face Neck: No JVD, no edema of the neck. Lung: CTA b/l no wheezes or rales CARD: RRR no murmurs ABD: Soft, Nt/ND, normoactive BS, PEG tube noted with site C/D/I : Scrotal abrasion noted, no blood in diaper, normal testicular exam Neuro: R-sided flaccidity noted. EXT: Upper extremity pitting edema noted R>L, pulses b/l intact Laboratory Results - last 24 hr 06/13/19 06/13/19 06/14/19 17:53 22:11 06:47 WBC RBC Hgb Hct MCV MCH MCHC RDW Plt Count MPV Absolute Neuts (auto) Neutrophils % Lymphocytes % Monocytes % Eosinophils % Basophils % Nucleated RBC % Sodium Potassium Chloride Carbon Dioxide Anion Gap BUN Creatinine Est GFR (CKD-EPI)AfAm Est GFR (CKD-EPI)NonAf POC Glucometer 96 94 91 Random Glucose Calcium Phosphorus Magnesium Total Bilirubin AST ALT Alkaline Phosphatase Total Protein Albumin Stool Occult Blood 06/14/19 06/14/19 06/14/19 10:45 13:03 13:03 WBC 7.5 RBC 3.34 L Hgb 9.9 L Hct 30.4 L MCV 90.9 MCH 29.7 MCHC 32.6 RDW 15.6 Plt Count 220 MPV 7.3 L Absolute Neuts (auto) 5.0 Neutrophils % 67.6 Lymphocytes % 21.6 Monocytes % 8.6 Eosinophils % 1.5 D Basophils % 0.7 Nucleated RBC % 0 Sodium 144 Potassium 2.5 L* Chloride 108 H Carbon Dioxide 31 Anion Gap 5 L BUN 12.6 Creatinine 0.3 L Est GFR (CKD-EPI)AfAm 150.50 Est GFR (CKD-EPI)NonAf 129.85 POC Glucometer Random Glucose 90 Calcium 7.9 L Phosphorus 2.1 L Magnesium 1.9 Total Bilirubin 0.4 AST 20 ALT 16 Alkaline Phosphatase 72 Total Protein 5.0 L Albumin 1.8 L Stool Occult Blood Positive Active Medications Generic Name Dose Route Start Last Admin Trade Name Freq PRN Reason Stop Dose Admin Acetaminophen 325 mg 06/10/19 19:41 Tylenol Oral Solution - GT Q4H PRN FEVER Amino Acids 30 ml 06/10/19 17:30 06/14/19 11:14 Prosource No Carb Liquid Pkt GT 30 ml BID@0800,1730 [facility]IS Administration Amlodipine Besylate 5 mg 06/10/19 19:35 06/14/19 11:16 Norvasc - GT 5 mg DAILY [facility] Administration Atorvastatin Calcium 20 mg 06/10/19 22:00 06/13/19 21:59 Lipitor - GT 20 mg HS [facility]IS Administration Donepezil HCl 10 mg 06/10/19 19:15 06/14/19 11:15 Aricept - GT 10 mg DAILY [facility] Administration Piperacillin Sod/Tazobactam 50 mls @ 100 mls/hr 06/14/19 18:00 Sod 3.375 gm/ Dextrose IVPB Q8H-IV [facility]IS Protocol Potassium Chloride 10 meq in 100 mls @ 100 mls/hr 06/14/19 14:30 Potassium Chloride 10 Meq Premix Ivpb - IVPB 06/14/19 17:29 Q60M CHRIS Lactobacillus Acidophilus 1 tab 06/13/19 22:00 06/14/19 11:16 Bacid - GT 1 tab BID [facility]RIS Administration Levetiracetam 1,000 mg 06/13/19 22:00 06/14/19 11:13 Keppra Oral Solution - PEG 1,000 mg BID CHRIS Administration Multivitamins/Minerals 15 ml 06/11/19 10:00 06/14/19 11:12 Certavite-Antioxidant Liquid GT 15 ml DAILY [facility] Administration Senna 8.8 mg 06/10/19 22:00 06/14/19 11:17 Senna Oral Solution - GT Not Given BID [facility]RIS Valproate Sodium 500 mg 06/13/19 22:00 06/14/19 11:14 Depakene - GT 500 mg BID [facility]IS Administration ASSESSMENT/PLAN: Right Internal Jugular Thrombus Lower GI Bleed Normocytic anemia related to above Atrial Fibrillation, not in RVR History of CVA with significant residual deficits Hypokalemia --Pt's Afib risk CHADSVASc 5 with significant stroke risk per year --Given GI bleed will have to hold AC until stablized/cleared with GI --Likely will need to restart AC (Coumadin vs. continuing Eliquis) once GI bleed acute issue resolved due to IJ thrombus with possible extension into subclavian --Monitor edema and worsening thoracic outlet syndrome --Normal transfusion thresholds --Repletion of electrolyte deficiencies per primary teams Case to be discussed Horacio Boothe, DO - IM PGY-3 Visit type - Emergency Visit Emergency Visit: Yes ED Registration Date: 06/10/19 Care time: The patient presented to the Emergency Department on the above date and was hospitalized for further evaluation of their emergent condition. - New Patient This patient is new to me today: No - Critical Care Critical Care patient: No ATTENDING PHYSICIAN STATEMENT I saw and evaluated the patient. I reviewed the resident's note and discussed the case with the resident. I agree with the resident's findings and plan as documented. SUBJECTIVE: OBJECTIVE: ASSESSMENT AND PLAN:
[2019-06-14] MEDS: KCL 10 MEQ IVPB 10 MEQ/100 ML INFUS.BAG IVPB SCH ×3 (14:37→19:49)
--- NOTE | 2019-06-14 16:30 | PN ---
Teaching Attending Note Name of Resident: Horacio Boothe ATTENDING PHYSICIAN STATEMENT I saw and evaluated the patient. I reviewed the resident's note and discussed the case with the resident. I agree with the resident's findings and plan as documented. SUBJECTIVE: Patient seen and examined Poorly responsive Right IJ thrombus with some extension. Several bouts of blood in stool . No history obtainable On eliquis for PAFm, past stroke, and sedentary status Last Vital Signs Temp Pulse Resp BP Pulse Ox 97.5 F L 61 18 116/67 100 06/14/19 14:00 06/14/19 14:00 06/14/19 14:00 06/14/19 14:00 06/13/19 21:00 Cor: RSR, No murmurs, No gallops Lungs: diminished breath sounds bilaterally Abd: Soft, Normal bowel sounds, No organomegaly Ext:No significant edemaboots and heel shoes Skin: No rashes, Integument intact CBC, BMP 06/14/19 13:03 06/14/19 13:03 Current Medications Generic Name Dose Route Start Last Admin Trade Name Freq PRN Reason Stop Dose Admin Acetaminophen 325 mg 06/10/19 19:41 Tylenol Oral Solution - GT Q4H PRN FEVER Amino Acids 30 ml 06/10/19 17:30 06/14/19 11:14 Prosource No Carb Liquid Pkt GT 30 ml BID@0800,1730 CHRIS Administration Amlodipine Besylate 5 mg 06/10/19 19:35 06/14/19 11:16 Norvasc - GT 5 mg DAILY [facility]IS Administration Atorvastatin Calcium 20 mg 06/10/19 22:00 06/13/19 21:59 Lipitor - GT 20 mg HS CHRIS Administration Donepezil HCl 10 mg 06/10/19 19:15 06/14/19 11:15 Aricept - GT 10 mg DAILY [facility]IS Administration Piperacillin Sod/Tazobactam 50 mls @ 100 mls/hr 06/14/19 18:00 Sod 3.375 gm/ Dextrose IVPB Q8H-IV CH[facility]IS Protocol Potassium Chloride 10 meq in 100 mls @ 100 mls/hr 06/14/19 14:30 06/14/19 14: 37 Potassium Chloride 10 Meq Premix Ivpb - IVPB 06/14/19 17:29 100 mls/hr Q60M CHRIS Administration Lactobacillus Acidophilus 1 tab 06/13/19 22:00 06/14/19 11:16 Bacid - GT 1 tab BID [facility]IS Administration Levetiracetam 1,000 mg 06/13/19 22:00 06/14/19 11:13 Keppra Oral Solution - PEG 1,000 mg BID CHRIS Administration Multivitamins/Minerals 15 ml 06/11/19 10:00 06/14/19 11:12 Certavite-Antioxidant Liquid GT 15 ml DAILY [facility]IS Administration Senna 8.8 mg 06/10/19 22:00 06/14/19 11:17 Senna Oral Solution - GT Not Given BID CHRIS Valproate Sodium 500 mg 06/13/19 22:00 06/14/19 11:14 Depakene - GT 500 mg BID CHRIS Administration Impression: Aspiration pneumonia on antibiotics S/P stroke and bed bound status Hx --PAF Right IJ thrombus Hx of a/c with eliquis History of blood per rectum with relatively stable Hct since admission HPL Hypokalemia--needs repletion ?? of level of intervention per family ? GI assessment for blood per rectum ??eliquis failure and need to change to a/c with coumadin ?? need for aricept if patient is non responsive Resumption of a/c if no GI work up and stable Hct OBJECTIVE: ASSESSMENT AND PLAN:
[2019-06-14] MEDS ORDERED: NAPH,MB-DB/K PH,MBDB POWDER PACKET PEG ONE (17:48)
--- NOTE | 2019-06-14 17:50 | PN ---
Teaching Attending Note Name of Resident: Malou Doe ATTENDING PHYSICIAN STATEMENT I saw and evaluated the patient. I reviewed the resident's note and discussed the case with the resident. I agree with the resident's findings and plan as documented. SUBJECTIVE: unable to obtain a hx. rectal bleed was noted last night per RN. and 2 nights ago. OBJECTIVE: NAd, awake, non verbal , eyes open, and fixed to left. edema on upper extremities R > L. CV: RRR Lungs: Clear anteriorly Abd:soft, NT, PEG in No edema on erythema n legs. edema on upper extremities R > L. R elbow smal superficial abrasion ( 1.5 cm ) superficial abrasion on medial L foot Green liquid stool on bed. ASSESSMENT AND PLAN: 74 y/o man with h/o dementia, non verbal, HTN, HLP, A fib , seizure disorder, CVA , dysphagia, and other medical problems ho presented with resp distress. He was diagnosed with acute resp failure and PNA 1- Sepsis : resolved 2- PNA , likely aspiration 3- Rectal bleeding 4- R IJ and subclavian thrombus while on Eliquis 5- Malnutrition 6- HTN 7- A fib 8- HLP 9- hypophosphatemia and hypokalemia plan : - hold feeding in setting of rectal bleeding , pending plan - hold AC due to same reason - replete K and Phos - will decide on AC after GI plan and after d/w family - monitor HB - cont zosyn - cont chronic meds - Scds - CT and xrays reviewed.
--- NOTE | 2019-06-14 19:36 | PN ---
Physical Exam: SUBJECTIVE: Patient seen and examined at bedside . pt is non verbal and not able to communicate during exam OBJECTIVE: Vital Signs Period Temp Pulse Resp BP Sys/Palacios Pulse Ox Last 24 Hr 97.5 F-98.1 F 61-77 18-20 115-148/60-93 100 GENERAL: The patient is non verbal, lethargic. Neck: + JVD LUNGS: Breath sounds equal, no wheezes, no crackles, no accessory muscle use. HEART: + systolic murmur, RRR ABDOMEN: Soft, nontender, nondistended, normoactive bowel sounds, no guarding, PEG in place EXTREMITIES: 2+ pulses, warm, well-perfused, 2+ edema of UE and LE : scrotum is very raw, erythematous, some vesicles and areas of bleeding. Laboratory Results 06/14/19 06/14/19 06/14/19 13:03 13:03 18:23 WBC 7.5 RBC 3.34 L Hgb 9.9 L Hct 30.4 L MCV 90.9 MCH 29.7 MCHC 32.6 RDW 15.6 Plt Count 220 MPV 7.3 L Absolute Neuts (auto) 5.0 Neutrophils % 67.6 Lymphocytes % 21.6 Monocytes % 8.6 Eosinophils % 1.5 D Basophils % 0.7 Nucleated RBC % 0 Sodium 144 Potassium 2.5 L* Chloride 108 H Carbon Dioxide 31 Anion Gap 5 L BUN 12.6 Creatinine 0.3 L Est GFR (CKD-EPI)AfAm 150.50 Est GFR (CKD-EPI)NonAf 129.85 POC Glucometer 89 Random Glucose 90 Calcium 7.9 L Phosphorus 2.1 L Magnesium 1.9 Total Bilirubin 0.4 AST 20 ALT 16 Alkaline Phosphatase 72 Total Protein 5.0 L Albumin 1.8 L Stool Occult Blood Current Medications Acetaminophen (Tylenol Oral Solution -) 325 mg GT Q4H PRN PRN Reason: FEVER Amino Acids (Prosource No Carb Liquid Pkt) 30 ml GT BID@0800,1730 [facility] Last Admin: 06/14/19 18:19 Dose: 30 ml Amlodipine Besylate (Norvasc -) 5 mg GT DAILY [facility] Last Admin: 06/14/19 11:16 Dose: 5 mg Atorvastatin Calcium (Lipitor -) 20 mg GT HS [facility] Last Admin: 06/13/19 21:59 Dose: 20 mg Donepezil HCl (Aricept -) 10 mg GT DAILY [facility] Last Admin: 06/14/19 11:15 Dose: 10 mg Piperacillin Sod/Tazobactam (Sod 3.375 gm/ Dextrose) 50 mls @ 100 mls/hr IVPB Q8H-IV [facility]; Protocol Last Admin: 06/14/19 18:19 Dose: 100 mls/hr Lactobacillus Acidophilus (Bacid -) 1 tab GT BID [facility] Last Admin: 06/14/19 11:16 Dose: 1 tab Levetiracetam (Keppra Oral Solution -) 1,000 mg PEG BID [facility] Last Admin: 06/14/19 11:13 Dose: 1,000 mg Multivitamins/Minerals (Certavite-Antioxidant Liquid) 15 ml GT DAILY [facility] Last Admin: 06/14/19 11:12 Dose: 15 ml Senna (Senna Oral Solution -) 8.8 mg GT BID [facility] Last Admin: 06/14/19 11:17 Dose: Not Given Valproate Sodium (Depakene -) 500 mg GT BID [facility] Last Admin: 06/14/19 11:14 Dose: [address]: Impression: Right lower lobe infiltrate containing air bronchograms. Patchy right upper lobe infiltrates. A small amount of mucous secretions/debris is seen within the central bronchi bilaterally. Correlate clinically in regards to the possibility of aspiration pneumonitis. Mild cardiomegaly. Mild fusiform aneurysmal dilatation of the ascending aorta with a 4.2 cm diameter. Status post cholecystectomy as on an abdomen CT study of 03/10/2019. On the current exam the partially visualized common bile duct is dilated with a 1.5 cm diameter. No gross interval change is seen in comparison to the recent 2019 CT exam. Clinical/laboratory correlation is suggested. Follow-up imaging as clinically indicated. US DUPLEX: Impression: Thrombus is seen within the right internal jugular vein and possibly within the partially visualized right subclavian vein ASSESSMENT/PLAN: 74 yo M PMH of advanced Dementia, seizure disorder, CVA, afib, HTN, HLD, dysphagia presenting from [facility] for aspiration pneumonitis. 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 - as noted on duplex - Eliquis 5 BID held, may need to consider alternative anticoagulation Hematochezia - FOBT positive - continue to monitor H/H - goals of care discussion with family - GI following - will hold anticoagulation and feeding HTN - continue home amlodipine HLD - continue home atorvastatin Afib - Eliquis 5 BID held Seizure - c/w Keppra and Depakote - continue aspiration precautions - keep HOB elevated Dementia - continue home Aricept, may consider DC DVT ppx -Eliquis 5 BID held in setting of possible GIB - continue SCDs Electrolytes - repleted w/ kphos Dispo - continue to monitor on Med-surg - need to have further goals of care discussion with family regarding possible endoscopy, code status , anticoagulation Visit type - Emergency Visit Emergency Visit: No - New Patient This patient is new to me today: No - Critical Care Critical Care patient: No - Discharge Referral Referred to [facility] Med P.C.: No ATTENDING PHYSICIAN STATEMENT I saw and evaluated the patient. I reviewed the resident's note and discussed the case with the resident. I agree with the resident's findings and plan as documented. SUBJECTIVE: OBJECTIVE: ASSESSMENT AND PLAN:
--- NOTE | 2019-06-14 20:25 | PN ---
Progress Note (short form) - Note Progress Note: Brief GI note Asked to re-evaluate patient for rectal bleeding. PEG replaced on 06/12. Had small amount of bright blood in stools overnight per nurse, loose brown bm this am. No further bleeding reported. Eliquis has been held. On examination: Pt nonverbal, appears comfortable Abd soft, no tenderness elicited +PEG in place Rectal exam: scant light brown stool, no blood seen Labs reviewed. CBC, BMP 06/14/19 13:03 06/14/19 13:03 74yo male h/o CVA, dementia, A fib, IJ thrombus on eliquis s/p PEG replacement with episode of rectal bleeding. No blood on rectal examination and Hb fluctuating slightly though stable. Possible outlet bleeding/hemorrhoidal however other etiology cannot be excluded. -Recommend continue to closely monitor Hb and for further bleeding -No urgency for endoscopy in absence of overt bleeding stable Hb and considering pts comorbidities however if further bleeding will need to consider pending clarification in goals of care - per primary team family discussions taking place -Start PPI daily -If further bleeding with acute drop in hb or hemodynamic instability recommend CTA and possible IR consult Discussed with medicine resident
[2019-06-14] MEDS: ATORVASTATIN CA 20 MG TABLET (FP) GT SCH (21:31)
[2019-06-15 00:07] LABS: ALBUMIN 1.8 g/dl (3.4-5.0); BILIRUBIN,TOTAL 0.2 mg/dL (0.2-1); BLOOD UREA NITROGEN 15.1 mg/dL (7-18); CALCIUM 7.8 mg/dL (8.5-10.1); CREATININE 0.3 mg/dL (0.55-1.3); MAGNESIUM 1.9 mg/dL (1.8-2.4); PHOSPHOROUS 2.7 mg/dL (2.5-4.9); POTASSIUM 3.7 mmol/L (3.5-5.1); TOT PROT 5.2 g/dl (6.4-8.2)
[2019-06-15] MEDS ORDERED: PIPERACILLIN/TAZOBACTAM 3.375 GM VIAL IVPB ONE ×3 (02:09→16:43)
[2019-06-15] MEDS ORDERED: DEXTROSE 5%-WATER - 50 ML IVPB ONE ×3 (02:09→16:43)
[2019-06-15] MEDS: PIPERACILLIN/TAZOB 3.375 GM 3.375 GM in DEXTROSE 5%-WATER - 50 ML IVPB SCH ×3 (02:10→17:40)
[2019-06-15] MEDS ORDERED: DEXTROSE 50%-WATER 25 GM/50 ML DISP.SYRIN IVPUSH ONE (07:04)
--- NOTE | 2019-06-15 07:16 | PN ---
Physical Exam: SUBJECTIVE: Patient seen and examined at bedside. pt is awake. pt is nonverbal OBJECTIVE: Vital Signs Period Temp Pulse Resp BP Sys/Palacios Pulse Ox Last 24 Hr 97.5 F-98.2 F 61-73 18-18 116-149/67-80 99-100 GENERAL: The patient is non verbal, awake Neck: + JVD LUNGS: Breath sounds R>L, no accessory muscle use. HEART: + systolic murmur, RRR ABDOMEN: Soft, nontender, nondistended, normoactive bowel sounds, no guarding, PEG in place EXTREMITIES: 2+ pulses, warm, well-perfused, 2+ edema of UE and LE R elbow abrasion : scrotum is very raw, erythematous, some vesicles and areas of bleeding. CBC, BMP 06/15/19 08:15 06/15/19 08:15 Current Medications Acetaminophen (Tylenol Oral Solution -) 325 mg GT Q4H PRN PRN Reason: FEVER Amino Acids (Prosource No Carb Liquid Pkt) 30 ml GT BID@0800,1730 [facility] Last Admin: 06/14/19 18:19 Dose: 30 ml Amlodipine Besylate (Norvasc -) 5 mg GT DAILY [facility] Last Admin: 06/14/19 11:16 Dose: 5 mg Atorvastatin Calcium (Lipitor -) 20 mg GT HS [facility] Last Admin: 06/14/19 21:31 Dose: 20 mg Donepezil HCl (Aricept -) 10 mg GT DAILY [facility] Last Admin: 06/14/19 11:15 Dose: 10 mg Piperacillin Sod/Tazobactam (Sod 3.375 gm/ Dextrose) 50 mls @ 100 mls/hr IVPB Q8H-IV [facility]; Protocol Last Admin: 06/15/19 02:10 Dose: 100 mls/hr Potassium Chloride 20 meq/ (Dextrose/Sodium Chloride) 1,000 mls @ 42 mls/hr IVPB ASDIR [facility] Lactobacillus Acidophilus (Bacid -) 1 tab GT BID [facility] Last Admin: 06/14/19 21:31 Dose: 1 tab Levetiracetam (Keppra Oral Solution -) 1,000 mg PEG BID [facility] Last Admin: 06/14/19 21:30 Dose: 1,000 mg Multivitamins/Minerals (Certavite-Antioxidant Liquid) 15 ml GT DAILY [facility] Last Admin: 06/14/19 11:12 Dose: 15 ml Pantoprazole Sodium (Protonix Iv) 40 mg IVPUSH DAILY [facility] Senna (Senna Oral Solution -) 8.8 mg GT BID [facility] Last Admin: 06/14/19 21:48 Dose: Not Given Valproate Sodium (Depakene -) 500 mg GT BID [facility] Last Admin: 06/14/19 21:31 Dose: [address]: Impression: Right lower lobe infiltrate containing air bronchograms. Patchy right upper lobe infiltrates. A small amount of mucous secretions/debris is seen within the central bronchi bilaterally. Correlate clinically in regards to the possibility of aspiration pneumonitis. Mild cardiomegaly. Mild fusiform aneurysmal dilatation of the ascending aorta with a 4.2 cm diameter. Status post cholecystectomy as on an abdomen CT study of 03/10/2019. On the current exam the partially visualized common bile duct is dilated with a 1.5 cm diameter. No gross interval change is seen in comparison to the recent 2019 CT exam. Clinical/laboratory correlation is suggested. Follow-up imaging as clinically indicated. US DUPLEX: Impression: Thrombus is seen within the right internal jugular vein and possibly within the partially visualized right subclavian vein ASSESSMENT/PLAN: 74 yo M PMH of advanced Dementia, seizure disorder, CVA, afib, HTN, HLD, dysphagia presenting from [facility] for aspiration pneumonia. 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 Hematochezia - FOBT positive. - no additional episodes of bloody BM - continue to monitor H/H - goals of care discussion with family - GI following - will hold anticoagulation and feeding HTN - continue home amlodipine HLD - continue home atorvastatin Afib - Eliquis 5 BID held Seizure - c/w Keppra and Depakote - continue aspiration precautions - keep HOB elevated Dementia - continue home Aricept, may consider DC DVT ppx -Eliquis 5 BID held in setting of possible GIB - continue SCDs Electrolytes - repleted Dispo - continue to monitor on Med-surg -goals of care discussion with family regarding possible endoscopy, code status , anticoagulation . family requesting time to discuss. Visit type - Emergency Visit Emergency Visit: No - New Patient This patient is new to me today: No - Critical Care Critical Care patient: No - Discharge Referral Referred to [facility] Med P.C.: No ATTENDING PHYSICIAN STATEMENT I saw and evaluated the patient. I reviewed the resident's note and discussed the case with the resident. I agree with the resident's findings and plan as documented. SUBJECTIVE: OBJECTIVE: ASSESSMENT AND PLAN:
[2019-06-15] MEDS: D5-1/2NS+20 MEQ KCL - 20 MEQ/1,000 ML INFUS.BAG IV SCH (08:07)
[2019-06-15 08:40] LABS: BASO % 0.5 % (0-2.0); HEMATOCRIT 32.1 % (35.4-49); HEMOGLOBIN 10.6 GM/dL (11.7-16.9); LYMPH % 18.3 % (8-40); MCH 29.7 pg (25.7-33.7); MCHC 32.9 g/dl (32.0-35.9); MEAN CELL VOLUME 90.3 fl (80-96); MEAN PLT VOLUME 7.4 fl (7.5-11.1); MONO % 7.3 % (3.8-10.2); NEUT % 72.9 % (42.8-82.8); PLATELET COUNT 217 K/MM3 (134-434); RBC 3.55 M/mm3 (4.00-5.60); RDW 15.8 % (11.9-15.9); WHITE BLOOD COUNT 7.6 K/mm3 (4.0-10.0)
[2019-06-15 09:11] LABS: ALBUMIN 1.8 g/dl (3.4-5.0); BILIRUBIN,TOTAL 0.2 mg/dL (0.2-1); BLOOD UREA NITROGEN 14.5 mg/dL (7-18); CALCIUM 7.8 mg/dL (8.5-10.1); CREATININE 0.3 mg/dL (0.55-1.3); MAGNESIUM 2.1 mg/dL (1.8-2.4); PHOSPHOROUS 2.5 mg/dL (2.5-4.9); POTASSIUM 3.6 mmol/L (3.5-5.1); TOT PROT 5.2 g/dl (6.4-8.2)
[2019-06-15] MEDS ORDERED: PT OWN MED DRAWER 7, Y5N ONE ×2 (11:46→21:49)
[2019-06-15] MEDS: DONEPEZIL HCL 10 MG TABLET (FP) GT SCH (12:03)
[2019-06-15] MEDS: LACTOBACILLUS ACIDOPHILUS 1 TABLET GT SCH ×2 (12:03→21:55)
[2019-06-15] MEDS: levETIRAcetam 500 MG/5 ML ORAL SOLUTION (UNIT-DOSE CUPS) PEG SCH ×2 (12:03→21:55)
[2019-06-15] MEDS: amLODIPine BESYLATE 5 MG TABLET (FP) GT SCH (12:03)
[2019-06-15] MEDS: AMINO ACIDS/PROTEIN HYDROLYS 30 ML LIQUID.PKT GT SCH ×2 (12:03→17:40)
[2019-06-15] MEDS: VALPROATE SODIUM 250 MG/5 ML UNIT DOSE CUP GT SCH ×2 (12:04→21:56)
[2019-06-15] MEDS: PANTOPRAZOLE SODIUM 40 MG VIAL IVPUSH SCH (12:04)
[2019-06-15] MEDS: MULTIVIT-MINERALS ORAL LIQUID GT SCH (12:04)
[2019-06-15] MEDS: SENNOSIDES 8.8 MG/5 ML BULK BOTTLE GT SCH ×2 (12:07→21:56)
--- NOTE | 2019-06-15 18:36 | PN ---
Teaching Attending Note Name of Resident: Malou Doe ATTENDING PHYSICIAN STATEMENT I saw and evaluated the patient. I reviewed the resident's note and discussed the case with the resident. I agree with the resident's findings and plan as documented. SUBJECTIVE: Seen around 12:30 pm No events over night. unable to obtain ROS. OBJECTIVE: NAd, non verbal. sleeping CV: RRR, SM Lungs: Clear anteriorly Abd:soft, NT, PEG in No edema on erythema on legs. edema on upper extremities R > L. R elbow small superficial abrasion ( 1.5 cm ) ASSESSMENT AND PLAN: 74 y/o man with h/o dementia, non verbal, HTN, HLP, A fib , seizure disorder, CVA , dysphagia, and other medical problems ho presented with resp distress. He was diagnosed with acute resp failure and PNA 1- Sepsis: resolved 2- PNA , likely aspiration 3- Rectal bleeding 4- R IJ and subclavian thrombus while on Eliquis 5- Malnutrition 6- HTN 7- A fib 8- HLP 9- hypophosphatemia and hypokalemia: resolved plan : -no more bleeding, and stable Hb - resume TF - cont zosyn - cont chronic meds - hold AC due to same reason. - Scds - team d.w family today: current situation was explained. family is aware of DVT and consequences of PE if no AC was started. family also understands that AC without finding the source of the bleeding carries increased risk for bleeding. family did not make any decision yet and will need time to decide on GI procedure and AC. family also understands poor prognosis and thinks the patient is suffering. Hospice was brought up yesterday , but family requests an estimate of life expectancy before they decide on anything. appreciate further discussion by palliative care tomorrow - if no bleeding by tomorrow , will start dvt px pending decision on AC
--- NOTE | 2019-06-15 19:35 | PN.GI ---
GI Progress Note Subjective: No bleeding No acute events - Objective Vital Signs: Vital Signs Temperature 97.9 F 06/15/19 16:30 Pulse Rate 72 06/15/19 16:30 Respiratory Rate 18 06/15/19 16:30 Blood Pressure 98/58 L 06/15/19 16:30 O2 Sat by Pulse Oximetry (%) 100 06/15/19 09:20 Constitutional: Calm Eyes: No: Sclera Icterus Cardiovascular: Yes: Regular Rate and Rhythm Respiratory: Yes: Diminished (at bases bilaterally with poor insp. effort) Gastrointestinal Inspection: Yes: Other (G Tube in mid upper abdomen) ...Auscultate: Yes: Normoactive Bowel Sounds ...Palpate: Yes: Soft. No: Tenderness (No grimacing upon palpation) ...Percussion: No: Tympanitic Edema: No (No LE edema) Neurological: Yes: Alert Labs: CBC, BMP 06/15/19 08:15 06/15/19 08:15 INR, PTT INR 1.57 (0.83-1.09) H 06/09/19 18:05 Problem List - Problems (1) Rectal bleed Assessment/Plan: No overt bleeding with stable H/H Resume A/C if medically necessary and monitor clinically. If significant rebleeding, transfer to ICU, CTA to evaluate and family will need to decide regarding invasive testing Code(s): K62.5 - HEMORRHAGE OF ANUS AND RECTUM
[2019-06-15] MEDS: ATORVASTATIN CA 20 MG TABLET (FP) GT SCH (21:55)
[2019-06-16] MEDS ORDERED: PIPERACILLIN/TAZOBACTAM 3.375 GM VIAL IVPB ONE ×2 (01:26→09:07)
[2019-06-16] MEDS ORDERED: DEXTROSE 5%-WATER - 50 ML IVPB ONE ×2 (01:27→09:07)
[2019-06-16] MEDS: PIPERACILLIN/TAZOB 3.375 GM 3.375 GM in DEXTROSE 5%-WATER - 50 ML IVPB SCH ×2 (01:33→09:16)
[2019-06-16 09:52] LABS: HEMATOCRIT 31.8 % (35.4-49); HEMOGLOBIN 10.5 GM/dL (11.7-16.9); MCH 29.8 pg (25.7-33.7); MCHC 33.1 g/dl (32.0-35.9); MEAN CELL VOLUME 90.1 fl (80-96); MEAN PLT VOLUME 7.1 fl (7.5-11.1); PLATELET COUNT 222 K/MM3 (134-434); RBC 3.54 M/mm3 (4.00-5.60); RDW 15.5 % (11.9-15.9); WHITE BLOOD COUNT 5.4 K/mm3 (4.0-10.0)
[2019-06-16 10:27] LABS: BLOOD UREA NITROGEN 10.2 mg/dL (7-18); CALCIUM 7.9 mg/dL (8.5-10.1); CREATININE 0.3 mg/dL (0.55-1.3); MAGNESIUM 1.9 mg/dL (1.8-2.4); PHOSPHOROUS 2.3 mg/dL (2.5-4.9); POTASSIUM 3.2 mmol/L (3.5-5.1)
[2019-06-16] MEDS ORDERED: PT OWN MED DRAWER 7, Y5N ONE (10:52)
[2019-06-16] MEDS: PANTOPRAZOLE SODIUM 40 MG VIAL IVPUSH SCH (11:11)
[2019-06-16] MEDS: LACTOBACILLUS ACIDOPHILUS 1 TABLET GT SCH ×2 (11:11→22:28)
[2019-06-16] MEDS: VALPROATE SODIUM 250 MG/5 ML UNIT DOSE CUP GT SCH ×2 (11:13→22:28)
[2019-06-16] MEDS: amLODIPine BESYLATE 5 MG TABLET (FP) GT SCH (11:14)
[2019-06-16] MEDS: DONEPEZIL HCL 10 MG TABLET (FP) GT SCH (11:14)
[2019-06-16] MEDS: MULTIVIT-MINERALS ORAL LIQUID GT SCH (11:14)
[2019-06-16] MEDS: AMINO ACIDS/PROTEIN HYDROLYS 30 ML LIQUID.PKT GT SCH ×2 (11:14→17:49)
[2019-06-16] MEDS: levETIRAcetam 500 MG/5 ML ORAL SOLUTION (UNIT-DOSE CUPS) PEG SCH ×2 (11:14→22:28)
[2019-06-16] MEDS: SENNOSIDES 8.8 MG/5 ML BULK BOTTLE GT SCH ×2 (11:15→22:28)
[2019-06-16] MEDS ORDERED: POTASSIUM PHOSPHATE 30 MM in SODIUM CHLORIDE 500 ML IVPB ONE (13:00)
[2019-06-16] MEDS ORDERED: POTASSIUM CHLORIDE ORAL LIQUID 20 MEQ/15 ML GT ONE (13:21)
[2019-06-16] MEDS ORDERED: NAPH,MB-DB/K PH,MBDB POWDER PACKET GT ONE (13:23)
[2019-06-16] MEDS ORDERED: HEPARIN NA (PORCINE) 5,000 UNITS/ML 1ML VIAL IVPUSH ONE (14:00)
[2019-06-16] MEDS ORDERED: HEPARIN NA (PORCINE) 5,000 UNITS/ML 1ML VIAL IVPUSH PRN ×2 (14:00)
[2019-06-16] MEDS: D5-1/2NS+20 MEQ KCL - 20 MEQ/1,000 ML INFUS.BAG IV SCH (14:40)
--- NOTE | 2019-06-16 17:31 | PN ---
Progress Note, Physician History of Present Illness: MORE AWAKE NOT VERBALLY RESPONSIVE AFEBRILE WBC WNL CULTURES NO GROWTH - Current Medication List Current Medications: Active Medications Acetaminophen (Tylenol Oral Solution -) 325 mg GT Q4H PRN PRN Reason: FEVER Amino Acids (Prosource No Carb Liquid Pkt) 30 ml GT BID@0800,1730 [facility] Last Admin: 06/16/19 11:14 Dose: 30 ml Amlodipine Besylate (Norvasc -) 5 mg GT DAILY [facility] Last Admin: 06/16/19 11:14 Dose: 5 mg Atorvastatin Calcium (Lipitor -) 20 mg GT HS [facility] Last Admin: 06/15/19 21:55 Dose: 20 mg Donepezil HCl (Aricept -) 10 mg GT DAILY [facility] Last Admin: 06/16/19 11:14 Dose: 10 mg Heparin Sodium (Porcine) (Heparin -) 2,400 unit 40 unit/kg (2400 unit) IVPUSH PRN PRN PRN Reason: For aPTT 35 to 45 seconds Heparin Sodium (Porcine) (Heparin -) 4,800 unit 80 unit/kg (4800 unit) IVPUSH PRN PRN PRN Reason: aPTT <35 seconds Heparin Sodium (Porcine) 25, (000 unit/ Sodium Chloride) 500 mls @ 21.55 mls/ hr IV TITR [facility]; Protocol Lactobacillus Acidophilus (Bacid -) 1 tab GT BID [facility] Last Admin: 06/16/19 11:11 Dose: 1 tab Levetiracetam (Keppra Oral Solution -) 1,000 mg PEG BID [facility] Last Admin: 06/16/19 11:14 Dose: 1,000 mg Multivitamins/Minerals (Certavite-Antioxidant Liquid) 15 ml GT DAILY [facility] Last Admin: 06/16/19 11:14 Dose: 15 ml Pantoprazole Sodium (Protonix Iv) 40 mg IVPUSH DAILY [facility] Senna (Senna Oral Solution -) 8.8 mg GT BID [facility] Last Admin: 06/16/19 11:15 Dose: Not Given Valproate Sodium (Depakene -) 500 mg GT BID [facility] Last Admin: 06/16/19 11:13 Dose: 500 mg Warfarin Sodium (Coumadin -) 2 mg PO DAILY@1800 [facility] - Objective Vital Signs: Vital Signs Temperature 98.4 F 06/16/19 15:00 Pulse Rate 70 06/16/19 15:00 Respiratory Rate 06/16/19 15:00 Blood Pressure 135/72 06/16/19 15:00 O2 Sat by Pulse Oximetry (%) 98 06/15/19 21:00 Constitutional: Yes: No Distress Cardiovascular: Yes: Regular Rate and Rhythm, S1, S2 Respiratory: Yes: Diminished Gastrointestinal: Yes: Normal Bowel Sounds, Soft. No: Tenderness Edema: Yes Labs: CBC, BMP 06/16/19 09:35 06/16/19 09:35 INR, PTT INR 1.57 (0.83-1.09) H 06/09/19 18:05 Assessment/Plan HCAP RLL PNEUMONIA R/O SEPSIS SECONDARY TO UTI COMPLETED 7 DAY COURSE ZOSYN SUBSTITUTE AUGMENTIN BID X 3D
--- NOTE | 2019-06-16 17:57 | PN ---
Teaching Attending Note Name of Resident: Malou Doe ATTENDING PHYSICIAN STATEMENT I saw and evaluated the patient. I reviewed the resident's note and discussed the case with the resident. I agree with the resident's findings and plan as documented. SUBJECTIVE: Not able to give hx OBJECTIVE: Non verbal CV: RRR, 3/6 SM at LUSB and LLSB Lungs: Clear anteriorly Abd:soft, NT, PEG in No edema on erythema on legs. edema on upper extremities R > L. R elbow small superficial abrasion, unchanged ASSESSMENT AND PLAN: 74 y/o man with h/o dementia, non verbal, HTN, HLP, A fib , seizure disorder, CVA , dysphagia, and other medical problems ho presented with resp distress. He was diagnosed with acute resp failure and PNA 1- Sepsis: resolved 2- PNA , likely aspiration 3- Rectal bleeding 4- R IJ and subclavian thrombus while on Eliquis 5- Malnutrition 6- HTN 7- A fib 8- HLP 9- hypophosphatemia and hypokalemia: resolved Plan: - no more bleeding, and stable Hb. - family is interested in sigmoidoscopy but GI does not think it is necessary unless there is a change in clinical status - augmentin for 3 more days - cont chronic meds - family agrees to AC with heparin bridging to coumadin. start heparin gtt , and check INR - Scds - Dr. Contreras hardin family today: Full code . OK with AC and agree to a sigmoidoscopy if indicated by GI.
[2019-06-16] MEDS ORDERED: WARFARIN NA 2 MG TABLET (UD) PO SCH (18:00)
[2019-06-16] MEDS: HEPARIN - 25,000 UNIT in SODIUM CHLORIDE 495 ML IV SCH (18:26)
--- NOTE | 2019-06-16 18:30 | PN ---
Physical Exam: SUBJECTIVE: Patient seen and examined at bedside. pt is nonverbal OBJECTIVE: Vital Signs Period Temp Pulse Resp BP Sys/Palacios Pulse Ox Last 24 Hr 97.9 F-98.5 F 69-80 18-22 111-146/60-89 98 GENERAL: The patient is non verbal, awake Neck: + JVD LUNGS: Breath sounds R>L, no accessory muscle use. HEART: + systolic murmur, RRR ABDOMEN: Soft, nontender, nondistended, normoactive bowel sounds, no guarding, PEG in place EXTREMITIES: 2+ pulses, warm, well-perfused, 2+ edema of UE and LE R elbow abrasion : scrotum is very raw, erythematous, some vesicles and areas of bleeding. Laboratory Results - last 24 hr 06/15/19 06/16/19 06/16/19 21:54 07:36 09:35 WBC RBC Hgb Hct MCV MCH MCHC RDW Plt Count MPV Sodium 145 Potassium 3.2 L Chloride 109 H Carbon Dioxide 35 H Anion Gap 2 L BUN 10.2 Creatinine 0.3 L Est GFR (CKD-EPI)AfAm 150.50 Est GFR (CKD-EPI)NonAf 129.85 POC Glucometer 90 98 Random Glucose 106 Calcium 7.9 L Phosphorus 2.3 L Magnesium 1.9 06/16/19 06/16/19 06/16/19 09:35 14:26 17:12 WBC 5.4 RBC 3.54 L Hgb 10.5 L Hct 31.8 L MCV 90.1 MCH 29.8 MCHC 33.1 RDW 15.5 Plt Count 222 MPV 7.1 L Sodium Potassium Chloride Carbon Dioxide Anion Gap BUN Creatinine Est GFR (CKD-EPI)AfAm Est GFR (CKD-EPI)NonAf POC Glucometer 120 116 Random Glucose Calcium Phosphorus Magnesium Current Medications Acetaminophen (Tylenol Oral Solution -) 325 mg GT Q4H PRN PRN Reason: FEVER Amino Acids (Prosource No Carb Liquid Pkt) 30 ml GT BID@0800,1730 [facility] Last Admin: 06/16/19 17:49 Dose: 30 ml Amlodipine Besylate (Norvasc -) 5 mg GT DAILY [facility] Last Admin: 06/16/19 11:14 Dose: 5 mg Amoxicillin/Clavulanate Potassium (Augmentin 600 Mg/5 Ml Oral Suspension -) 600 mg PO BID@0800,1730 [facility] Atorvastatin Calcium (Lipitor -) 20 mg GT HS [facility] Last Admin: 06/15/19 21:55 Dose: 20 mg Donepezil HCl (Aricept -) 10 mg GT DAILY [facility] Last Admin: 06/16/19 11:14 Dose: 10 mg Heparin Sodium (Porcine) (Heparin -) 2,400 unit 40 unit/kg (2400 unit) IVPUSH PRN PRN PRN Reason: For aPTT 35 to 45 seconds Heparin Sodium (Porcine) (Heparin -) 4,800 unit 80 unit/kg (4800 unit) IVPUSH PRN PRN PRN Reason: aPTT <35 seconds Heparin Sodium (Porcine) 25, (000 unit/ Sodium Chloride) 500 mls @ 21.55 mls/ hr IV TITR [facility]; Protocol Lactobacillus Acidophilus (Bacid -) 1 tab GT BID [facility] Last Admin: 06/16/19 11:11 Dose: 1 tab Levetiracetam (Keppra Oral Solution -) 1,000 mg PEG BID [facility] Last Admin: 06/16/19 11:14 Dose: 1,000 mg Multivitamins/Minerals (Certavite-Antioxidant Liquid) 15 ml GT DAILY [facility] Last Admin: 06/16/19 11:14 Dose: 15 ml Pantoprazole Sodium (Protonix Iv) 40 mg IVPUSH DAILY [facility] Senna (Senna Oral Solution -) 8.8 mg GT BID [facility] Last Admin: 06/16/19 11:15 Dose: Not Given Valproate Sodium (Depakene -) 500 mg GT BID [facility] Last Admin: 06/16/19 11:13 Dose: 500 mg Warfarin Sodium (Coumadin -) 2 mg PO DAILY@1800 [facility] Last Admin: 06/16/19 17:49 Dose: [address]: Impression: Right lower lobe infiltrate containing air bronchograms. Patchy right upper lobe infiltrates. A small amount of mucous secretions/debris is seen within the central bronchi bilaterally. Correlate clinically in regards to the possibility of aspiration pneumonitis. Mild cardiomegaly. Mild fusiform aneurysmal dilatation of the ascending aorta with a 4.2 cm diameter. Status post cholecystectomy as on an abdomen CT study of 03/10/2019. On the current exam the partially visualized common bile duct is dilated with a 1.5 cm diameter. No gross interval change is seen in comparison to the recent 2019 CT exam. Clinical/laboratory correlation is suggested. Follow-up imaging as clinically indicated. US DUPLEX: Impression: Thrombus is seen within the right internal jugular vein and possibly within the partially visualized right subclavian vein ASSESSMENT/PLAN: 74 yo M PMH of advanced Dementia, seizure disorder, CVA, afib, HTN, HLD, dysphagia presenting from [facility] for aspiration pneumonia. 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 - no additional episodes of bloody BM - continue to monitor H/H - GI following - AC resumed, will continue to monitor for signs of bleed/ hemodynamic instabilty. if hematochezia continues will consider CTA HTN - continue home amlodipine HLD - continue home atorvastatin Afib - heparin bridge to coumadin Seizure - c/w Keppra and Depakote - continue aspiration precautions - keep HOB elevated Dementia - continue home Aricept, may consider DC DVT ppx -heparin to coumadin . will check INR - continue SCDs Electrolytes - repleted Dispo - continue to monitor on Med-surg FULL CODE Visit type - Emergency Visit Emergency Visit: No - New Patient This patient is new to me today: No - Critical Care Critical Care patient: No - Discharge Referral Referred to [facility] Med P.C.: Yes Physician Referral: Issa Call DO (GI) ATTENDING PHYSICIAN STATEMENT I saw and evaluated the patient. I reviewed the resident's note and discussed the case with the resident. I agree with the resident's findings and plan as documented. SUBJECTIVE: OBJECTIVE: ASSESSMENT AND PLAN:
[2019-06-16] MEDS: ATORVASTATIN CA 20 MG TABLET (FP) GT SCH (22:28)
[2019-06-17 08:20] LABS: INR 1.38 (0.83-1.09); PROTHROMBIN TIME (PATIENT) 16.3 SEC (9.7-13.0)
[2019-06-17 08:53] LABS: ACTIVATED PTT 106.2 SECONDS (25.2-36.5)
[2019-06-17 08:58] LABS: ALBUMIN 1.7 g/dl (3.4-5.0); BILIRUBIN,TOTAL 0.3 mg/dL (0.2-1); BLOOD UREA NITROGEN 9.4 mg/dL (7-18); CALCIUM 7.8 mg/dL (8.5-10.1); CREATININE 0.3 mg/dL (0.55-1.3); PHOSPHOROUS 1.8 mg/dL (2.5-4.9); POTASSIUM 3.1 mmol/L (3.5-5.1)
--- NOTE | 2019-06-17 09:23 | PN ---
Progress Note (short form) - Note Progress Note: Despite diarrhea and elevated APTT yesterday, no bleeding noted yesterday or this a.m. Pt somnolent. Abdomen soft, nontender. Continue current noninvasive care.
[2019-06-17] MEDS ORDERED: POTASSIUM PHOSPHATE 30 MM in SODIUM CHLORIDE 500 ML IVPB ONE (09:38)
[2019-06-17] MEDS ORDERED: PANTOPRAZOLE 40 MG TABLET PO SCH (10:00)
[2019-06-17] MEDS: HEPARIN - 25,000 UNIT in SODIUM CHLORIDE 495 ML IV SCH ×2 (10:05→22:10)
[2019-06-17] MEDS ORDERED: PT OWN MED DRAWER 7, Y5N ONE ×4 (10:37→18:00)
[2019-06-17] MEDS: LACTOBACILLUS ACIDOPHILUS 1 TABLET GT SCH ×2 (10:41→22:04)
[2019-06-17] MEDS: DONEPEZIL HCL 10 MG TABLET (FP) GT SCH (10:41)
[2019-06-17] MEDS: amLODIPine BESYLATE 5 MG TABLET (FP) GT SCH (10:42)
[2019-06-17] MEDS: VALPROATE SODIUM 250 MG/5 ML UNIT DOSE CUP GT SCH ×2 (10:42→22:04)
[2019-06-17] MEDS: AMINO ACIDS/PROTEIN HYDROLYS 30 ML LIQUID.PKT GT SCH ×2 (10:43→18:01)
[2019-06-17] MEDS: SENNOSIDES 8.8 MG/5 ML BULK BOTTLE GT SCH ×2 (10:43→22:05)
[2019-06-17] MEDS: levETIRAcetam 500 MG/5 ML ORAL SOLUTION (UNIT-DOSE CUPS) PEG SCH ×2 (10:44→22:04)
[2019-06-17] MEDS: AMOX TR/POTASSIUM CLAVULANATE 600 MG/5 ML PO SCH ×2 (11:06→17:56)
[2019-06-17] MEDS: PANTOPRAZOLE SODIUM 40 MG VIAL IVPUSH SCH (11:38)
[2019-06-17] MEDS: MULTIVIT-MINERALS ORAL LIQUID GT SCH (13:55)
--- NOTE | 2019-06-17 15:35 | PN ---
Physical Exam: SUBJECTIVE: Patient seen and examined at bedside. pt nonverbal OBJECTIVE: Vital Signs Period Temp Pulse Resp BP Sys/Palacios Pulse Ox Last 24 Hr 97.6 F-98.6 F 74-88 20-22 127-151/76-81 99-100 GENERAL: The patient is non verbal, awake Neck: + JVD LUNGS: Breath sounds R>L, no accessory muscle use. HEART: + systolic murmur, RRR ABDOMEN: Soft, nontender, nondistended, normoactive bowel sounds, no guarding, PEG in place EXTREMITIES: 2+ pulses, warm, well-perfused, 2+ edema of UE and LE R elbow abrasion : scrotum is very raw, erythematous, some vesicles and areas of bleeding. CBC, BMP 06/16/19 09:35 06/17/19 07:10 Current Medications Acetaminophen (Tylenol Oral Solution -) 325 mg GT Q4H PRN PRN Reason: FEVER Amino Acids (Prosource No Carb Liquid Pkt) 30 ml GT BID@0800,1730 [facility] Last Admin: 06/17/19 10:43 Dose: 30 ml Amlodipine Besylate (Norvasc -) 5 mg GT DAILY [facility] Last Admin: 06/17/19 10:42 Dose: 5 mg Amoxicillin/Clavulanate Potassium (Augmentin 600 Mg/5 Ml Oral Suspension -) 600 mg PO BID@0800,1730 [facility] Last Admin: 06/17/19 11:06 Dose: 600 mg Atorvastatin Calcium (Lipitor -) 20 mg GT HS [facility] Last Admin: 06/16/19 22:28 Dose: 20 mg Donepezil HCl (Aricept -) 10 mg GT DAILY [facility] Last Admin: 06/17/19 10:41 Dose: 10 mg Heparin Sodium (Porcine) (Heparin -) 2,400 unit 40 unit/kg (2400 unit) IVPUSH PRN PRN PRN Reason: For aPTT 35 to 45 seconds Heparin Sodium (Porcine) (Heparin -) 4,800 unit 80 unit/kg (4800 unit) IVPUSH PRN PRN PRN Reason: aPTT <35 seconds Heparin Sodium (Porcine) 25, (000 unit/ Sodium Chloride) 500 mls @ 21.55 mls/hr IV TITR [facility]; Protocol Last Admin: 06/16/19 18:26 Dose: 18 unit/kg/hr, 21.55 mls/hr Potassium Phosphate 30 mm/ (Sodium Chloride) 510 mls @ 62.5 mls/hr IVPB ONCE ONE Stop: 06/17/19 17:47 Last Admin: 06/17/19 13:54 Dose: 62.5 mls/hr Lactobacillus Acidophilus (Bacid -) 1 tab GT BID [facility] Last Admin: 06/17/19 10:41 Dose: 1 tab Levetiracetam (Keppra Oral Solution -) 1,000 mg PEG BID [facility] Last Admin: 06/17/19 10:44 Dose: 1,000 mg Multivitamins/Minerals (Certavite-Antioxidant Liquid) 15 ml GT DAILY [facility] Last Admin: 06/17/19 13:55 Dose: 15 ml Pantoprazole Sodium (Protonix Iv) 40 mg IVPUSH DAILY [facility] Last Admin: 06/17/19 11:38 Dose: 40 mg Senna (Senna Oral Solution -) 8.8 mg GT BID [facility] Last Admin: 06/17/19 10:43 Dose: 8.8 mg Valproate Sodium (Depakene -) 500 mg GT BID [facility] Last Admin: 06/17/19 10:42 Dose: 500 mg Warfarin Sodium (Coumadin -) 5 mg PO DAILY@[address]: Impression: Right lower lobe infiltrate containing air bronchograms. Patchy right upper lobe infiltrates. A small amount of mucous secretions/debris is seen within the central bronchi bilaterally. Correlate clinically in regards to the possibility of aspiration pneumonitis. Mild cardiomegaly. Mild fusiform aneurysmal dilatation of the ascending aorta with a 4.2 cm diameter. Status post cholecystectomy as on an abdomen CT study of 03/10/2019. On the current exam the partially visualized common bile duct is dilated with a 1.5 cm diameter. No gross interval change is seen in comparison to the recent 2019 CT exam. Clinical/laboratory correlation is suggested. Follow-up imaging as clinically indicated. US DUPLEX: Impression: Thrombus is seen within the right internal jugular vein and possibly within the partially visualized right subclavian vein ASSESSMENT/PLAN: 74 yo M PMH of advanced Dementia, seizure disorder, CVA, afib, HTN, HLD, dysphagia presenting from [facility] for aspiration pneumonia. Acute hypoxic respiratory failure 2/2 aspiration pneumonia - CT scan reviewed, please see above zosyn discontinued s/p 7 days, augmentin bid x 3 days . augmentin day 2 - ID consulted - Flu negative, legionella/strep negative, blood cultures negative to date Failure to Thrive - Jevity 1.5 resumed as per dietary eval - change PEG tube dressing BID AAA - stable , 4.2 cm R internal jugular and R subclavian vein thrombus - as noted on duplex - on heparin , bridging to coumadin Hematochezia - FOBT positive. - no additional episodes of bloody BM - continue to monitor H/H - GI following - AC resumed, will continue to monitor for signs of bleed/ hemodynamic instabilty. if hematochezia continues will consider CTA HTN - continue home amlodipine HLD - continue home atorvastatin Afib - heparin bridge to coumadin . changed to coumadin 5 today Seizure - c/w Keppra and Depakote - continue aspiration precautions - keep HOB elevated Dementia - continue home Aricept, may consider DC DVT ppx -heparin to coumadin . will check INR - coumadin 5 mg. continue to monitor INR Electrolytes - repleted Dispo - continue to monitor on Med-surg FULL CODE Visit type - Emergency Visit Emergency Visit: No - New Patient This patient is new to me today: No - Critical Care Critical Care patient: No - Discharge Referral Physician Referral: Issa Call DO (GI) ATTENDING PHYSICIAN STATEMENT I saw and evaluated the patient. I reviewed the resident's note and discussed the case with the resident. I agree with the resident's findings and plan as documented. SUBJECTIVE: OBJECTIVE: ASSESSMENT AND PLAN:
--- NOTE | 2019-06-17 16:25 | PN ---
Teaching Attending Note Name of Resident: Malou Doe ATTENDING PHYSICIAN STATEMENT I saw and evaluated the patient. I reviewed the resident's note and discussed the case with the resident. I agree with the resident's findings and plan as documented. SUBJECTIVE: unable to obtain hx OBJECTIVE: Non verbal CV: RRR, 3/6 SM at LUSB and LLSB Lungs: Clear anteriorly Abd:soft, NT, PEG in No edema on erythema on legs. edema on upper extremities R > L. R elbow small superficial abrasion, unchanged ASSESSMENT AND PLAN: 74 y/o man with h/o dementia, non verbal, HTN, HLP, A fib , seizure disorder, CVA , dysphagia, and other medical problems ho presented with resp distress. He was diagnosed with acute resp failure and PNA 1- Sepsis: resolved 2- PNA, likely aspiration 3- Rectal bleeding 4- R IJ and subclavian thrombus while on Eliquis 5- Malnutrition 6- HTN 7- A fib 8- HLP 9- hypophosphatemia and hypokalemia: resolved Plan: - no more bleeding, and stable Hb. - cont conservative management now - augmentin for 2 more days - cont chronic meds - replete K and Phos - Scds Full code per family wishes
[2019-06-17] MEDS: WARFARIN NA 5 MG TABLET (UD) PO SCH (18:01)
[2019-06-17] MEDS: ATORVASTATIN CA 20 MG TABLET (FP) GT SCH (22:04)
[2019-06-18] MEDS ORDERED: PT OWN MED DRAWER 7, Y5N ONE ×6 (07:56→22:51)
[2019-06-18 08:22] LABS: HEMATOCRIT 36.8 % (35.4-49); MCH 29.5 pg (25.7-33.7); MCHC 32.7 g/dl (32.0-35.9); MEAN CELL VOLUME 90.1 fl (80-96); MEAN PLT VOLUME 7.4 fl (7.5-11.1); PLATELET COUNT 233 K/MM3 (134-434); RBC 4.08 M/mm3 (4.00-5.60); RDW 16.1 % (11.9-15.9); WHITE BLOOD COUNT 6.7 K/mm3 (4.0-10.0)
[2019-06-18] MEDS: AMINO ACIDS/PROTEIN HYDROLYS 30 ML LIQUID.PKT GT SCH ×2 (08:35→17:24)
[2019-06-18] MEDS: AMOX TR/POTASSIUM CLAVULANATE 600 MG/5 ML PO SCH ×2 (08:46→17:23)
[2019-06-18 09:02] LABS: ALBUMIN 1.9 g/dl (3.4-5.0); BILIRUBIN,TOTAL 0.4 mg/dL (0.2-1); BLOOD UREA NITROGEN 11.1 mg/dL (7-18); CALCIUM 7.9 mg/dL (8.5-10.1); CREATININE 0.3 mg/dL (0.55-1.3); TOT PROT 5.7 g/dl (6.4-8.2)
--- NOTE | 2019-06-18 09:47 | PN ---
Progress Note (short form) - Note Progress Note: Pt remains somnolent. Abdomen soft, no reaction to palpation. Bowel sounds normal. Hct reportedly increased today: CBC WBC 6.7 K/mm3 (4.0-10.0) 06/18/19 07:19 RBC 4.08 M/mm3 (4.00-5.60) 06/18/19 07:19 Hgb 12.0 GM/dL (11.7-16.9) 06/18/19 07:19 Hct 36.8 % (35.4-49) D 06/18/19 07:19 MCV 90.1 fl (80-96) 06/18/19 07:19 MCH 29.5 pg (25.7-33.7) 06/18/19 07:19 MCHC 32.7 g/dl (32.0-35.9) 06/18/19 07:19 RDW 16.1 % (11.9-15.9) H 06/18/19 07:19 Plt Count 233 K/MM3 (134-434) 06/18/19 07:19 MPV 7.4 fl (7.5-11.1) L 06/18/19 07:19 Absolute Neuts (auto) 5.6 K/mm3 (1.5-8.0) 06/15/19 08:15 Neutrophils % 72.9 % (42.8-82.8) 06/15/19 08:15 Lymphocytes % 18.3 % (8-40) 06/15/19 08:15 Monocytes % 7.3 % (3.8-10.2) 06/15/19 08:15 Eosinophils % 1.0 % (0-4.5) 06/15/19 08:15 Basophils % 0.5 % (0-2.0) 06/15/19 08:15 Nucleated RBC % 0 % (0-0) 06/15/19 08:15 No need for GI intervention.
[2019-06-18] MEDS: HEPARIN - 25,000 UNIT in SODIUM CHLORIDE 495 ML IV SCH ×2 (10:15→19:16)
[2019-06-18] MEDS: DONEPEZIL HCL 10 MG TABLET (FP) GT SCH (10:24)
[2019-06-18] MEDS: LACTOBACILLUS ACIDOPHILUS 1 TABLET GT SCH ×2 (10:25→22:03)
[2019-06-18] MEDS: MULTIVIT-MINERALS ORAL LIQUID GT SCH (10:25)
[2019-06-18] MEDS: amLODIPine BESYLATE 5 MG TABLET (FP) GT SCH (10:26)
[2019-06-18] MEDS: VALPROATE SODIUM 250 MG/5 ML UNIT DOSE CUP GT SCH ×2 (10:26→22:04)
[2019-06-18] MEDS: SENNOSIDES 8.8 MG/5 ML BULK BOTTLE GT SCH ×2 (10:26→22:03)
[2019-06-18] MEDS: PANTOPRAZOLE SODIUM 40 MG VIAL IVPUSH SCH (10:27)
[2019-06-18] MEDS: levETIRAcetam 500 MG/5 ML ORAL SOLUTION (UNIT-DOSE CUPS) PEG SCH ×2 (10:27→22:03)
--- NOTE | 2019-06-18 16:59 | PN ---
Progress Note (short form) - Note Progress Note: Subjective: no events today. no BMs . Objective: Vital Signs: Last Vital Signs Temp Pulse Resp BP Pulse Ox 96.9 F L 89 20 140/62 99 06/18/19 14:00 06/18/19 14:00 06/18/19 14:00 06/18/19 14:00 06/18/19 09:00 Laboratory Results - last 24 hr 06/17/19 06/17/19 06/17/19 16:00 17:57 19:30 WBC RBC Hgb Hct MCV MCH MCHC RDW Plt Count MPV PTT (Actin FS) 75.0 H 66.5 H Sodium Potassium Chloride Carbon Dioxide Anion Gap BUN Creatinine Est GFR (CKD-EPI)AfAm Est GFR (CKD-EPI)NonAf POC Glucometer 125 Random Glucose Calcium Total Bilirubin AST ALT Alkaline Phosphatase Total Protein Albumin 06/17/19 06/18/19 06/18/19 23:26 03:00 06:00 WBC RBC Hgb Hct MCV MCH MCHC RDW Plt Count MPV PTT (Actin FS) 56.6 H Sodium 143 Potassium 4.0 Chloride 108 H Carbon Dioxide 31 Anion Gap 4 L BUN 11.1 Creatinine 0.3 L Est GFR (CKD-EPI)AfAm 150.50 Est GFR (CKD-EPI)NonAf 129.85 POC Glucometer 98 Random Glucose 94 Calcium 7.9 L Total Bilirubin 0.4 AST 58 H ALT 22 Alkaline Phosphatase 100 Total Protein 5.7 L Albumin 1.9 L 06/18/19 06/18/19 06/18/19 06:12 07:19 07:19 WBC 6.7 RBC 4.08 Hgb 12.0 Hct 36.8 D MCV 90.1 MCH 29.5 MCHC 32.7 RDW 16.1 H Plt Count 233 MPV 7.4 L PTT (Actin FS) 73.4 H Sodium Potassium Chloride Carbon Dioxide Anion Gap BUN Creatinine Est GFR (CKD-EPI)AfAm Est GFR (CKD-EPI)NonAf POC Glucometer 118 Random Glucose Calcium Total Bilirubin AST ALT Alkaline Phosphatase Total Protein Albumin 06/18/19 06/18/19 11:49 12:17 WBC RBC Hgb Hct MCV MCH MCHC RDW Plt Count MPV PTT (Actin FS) 33.4 Sodium Potassium Chloride Carbon Dioxide Anion Gap BUN Creatinine Est GFR (CKD-EPI)AfAm Est GFR (CKD-EPI)NonAf POC Glucometer 97 Random Glucose Calcium Total Bilirubin AST ALT Alkaline Phosphatase Total Protein Albumin Physical Exam: Non verbal CV: RRR, 3/6 SM at LUSB and LLSB Lungs: Clear anteriorly Abd:soft, NT, PEG in , ND , nl BS No edema on erythema on legs. edema on upper extremities R > L. ASSESSMENT AND PLAN: 74 y/o man with h/o dementia, non verbal, HTN, HLP, A fib , seizure disorder, CVA , dysphagia, and other medical problems ho presented with resp distress. He was diagnosed with acute resp failure and PNA 1- Sepsis: resolved 2- PNA, likely aspiration 3- Rectal bleeding 4- R IJ and subclavian thrombus while on Eliquis 5- Malnutrition 6- HTN 7- A fib 8- HLP 9- hypophosphatemia and hypokalemia: resolved Plan: - no more bleeding, and stable Hb. - cont conservative management now. 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 cont bridging to coumadin - cont chronic meds - monitor electrolytes - Scds Full code per family wishes plan was d/w his daughter on the phone Visit type - Emergency Visit Emergency Visit: Yes ED Registration Date: 06/10/19 Care time: The patient presented to the Emergency Department on the above date and was hospitalized for further evaluation of their emergent condition. - New Patient This patient is new to me today: No - Critical Care Critical Care patient: No
[2019-06-18 18:47] LABS: INR 1.92 (0.83-1.09); PROTHROMBIN TIME (PATIENT) 22.8 SEC (9.7-13.0)
[2019-06-18] MEDS: WARFARIN NA 5 MG TABLET (UD) PO SCH (19:16)
[2019-06-18] MEDS: ATORVASTATIN CA 20 MG TABLET (FP) GT SCH (22:03)
[2019-06-19] MEDS ORDERED: FUROSEMIDE 40 MG/4 ML INJECTABLE VIAL IVPUSH ONE (08:21)
[2019-06-19] MEDS ORDERED: ENOXAPARIN NA (PORCINE) 60 MG/0.6 ML DISP.SYRIN SQ SCH (10:30)
[2019-06-19 11:14] LABS: HEMATOCRIT 34.2 % (35.4-49); HEMOGLOBIN 11.1 GM/dL (11.7-16.9); MCH 29.2 pg (25.7-33.7); MCHC 32.5 g/dl (32.0-35.9); MEAN CELL VOLUME 89.8 fl (80-96); MEAN PLT VOLUME 7.2 fl (7.5-11.1); PLATELET COUNT 232 K/MM3 (134-434); RBC 3.81 M/mm3 (4.00-5.60); RDW 16.2 % (11.9-15.9); WHITE BLOOD COUNT 8.5 K/mm3 (4.0-10.0)
[2019-06-19 11:28] LABS: INR 2.79 (0.83-1.09); PROTHROMBIN TIME (PATIENT) 33.3 SEC (9.7-13.0)
[2019-06-19 11:31] LABS: ACTIVATED PTT 75.3 SECONDS (25.2-36.5)
[2019-06-19] MEDS: AMOX TR/POTASSIUM CLAVULANATE 600 MG/5 ML PO SCH ×2 (11:32→17:31)
[2019-06-19] MEDS: AMINO ACIDS/PROTEIN HYDROLYS 30 ML LIQUID.PKT GT SCH ×2 (11:32→17:29)
[2019-06-19] MEDS: levETIRAcetam 500 MG/5 ML ORAL SOLUTION (UNIT-DOSE CUPS) PEG SCH ×2 (11:33→21:23)
[2019-06-19] MEDS: LACTOBACILLUS ACIDOPHILUS 1 TABLET GT SCH ×2 (11:33→21:23)
[2019-06-19] MEDS: ENOXAPARIN NA (PORCINE) 60 MG/0.6 ML DISP.SYRIN SQ SCH ×2 (11:33→22:19)
[2019-06-19 11:34] LABS: MAGNESIUM 2.1 mg/dL (1.8-2.4); PHOSPHOROUS 2.6 mg/dL (2.5-4.9); POTASSIUM 3.5 mmol/L (3.5-5.1)
[2019-06-19] MEDS: amLODIPine BESYLATE 5 MG TABLET (FP) GT SCH (11:34)
[2019-06-19] MEDS: PANTOPRAZOLE SODIUM 40 MG VIAL IVPUSH SCH (11:34)
[2019-06-19] MEDS: MULTIVIT-MINERALS ORAL LIQUID GT SCH (11:34)
[2019-06-19] MEDS: DONEPEZIL HCL 10 MG TABLET (FP) GT SCH (11:34)
[2019-06-19] MEDS: VALPROATE SODIUM 250 MG/5 ML UNIT DOSE CUP GT SCH ×2 (11:35→21:23)
[2019-06-19] MEDS ORDERED: PT OWN MED DRAWER 7, Y5N ONE ×4 (11:42→20:51)
--- NOTE | 2019-06-19 11:43 | PN ---
Teaching Attending Note Name of Resident: Malou Doe ATTENDING PHYSICIAN STATEMENT I saw and evaluated the patient. I reviewed the resident's note and discussed the case with the resident. I agree with the resident's findings and plan as documented. SUBJECTIVE: No events over night. OBJECTIVE: Non verbal CV: RRR, 3/6 SM at LUSB and LLSB Lungs: Clear anteriorly Abd:soft, NT, PEG in , ND , nl BS. liquid brown stool in diaper edema on upper extremities R > L. trace edema on legs . ASSESSMENT AND PLAN: 74 y/o man with h/o dementia, non verbal, HTN, HLP, A fib , seizure disorder, CVA , dysphagia, and other medical problems ho presented with resp distress. He was diagnosed with acute resp failure and PNA 1- Sepsis: resolved 2- PNA, likely aspiration 3- Rectal bleeding 4- R IJ and subclavian thrombus while on Eliquis 5- Malnutrition 6- HTN 7- A fib 8- HLP 9- hypophosphatemia and hypokalemia: resolved Plan: - stable HB . no bleeding . cont conservative management - last day of augmentin - INR noted , decrease coumadin to 3 mg q PM - it is day 4 of heparin gtt. we need 5 days of pareteral AC despite INR being therapeutic. switch to lovenox for today and tomorrow, then cont coumadin alone - dc stool softners due to diarrhea - cont chronic meds - monitor electrolytes - Scds Full code per family wishes Will discuss with family discharge planning ( home VS NH ) . due to the increased risk of bleeding , he will need to fiishe his bridging in a monitored setting in the hospital . Anticipated dc on Wednesday.
[2019-06-19] MEDS ORDERED: WARFARIN NA 3 MG TABLET PO SCH ×2 (12:00→18:00)
--- NOTE | 2019-06-19 17:24 | PN ---
Physical Exam: SUBJECTIVE: Patient seen and examined. pt is lethargic and non verbal . no reported overnight events. pt has diarrhea. OBJECTIVE: Vital Signs Period Temp Pulse Resp BP Sys/Palacios Pulse Ox Last 24 Hr 96.5 F-98.4 F 82-85 18-20 123-138/69-78 100-100 GENERAL: The patient is lethargic. in no acute distress. HEAD: Normal with no signs of trauma. LUNGS: Breath sounds decreased at bases. no accessory muscle use. HEART: Regular rate and rhythm,+ S1, S2 , + systolic murmur ABDOMEN: Soft, nondistended, normoactive bowel sounds EXTREMITIES: 2+ pulses, warm, well-perfused,+4 edema b/l UE, 2+ edema LE b/l Laboratory Results - last 24 hr CBC, BMP 06/19/19 10:33 06/19/19 10:33 INR, PTT INR 2.79 (0.83-1.09) H 06/19/19 10:33 Current Medications Acetaminophen (Tylenol Oral Solution -) 325 mg GT Q4H PRN PRN Reason: FEVER Amino Acids (Prosource No Carb Liquid Pkt) 30 ml GT BID@0800,1730 [facility] Last Admin: 06/19/19 11:32 Dose: 30 ml Amlodipine Besylate (Norvasc -) 5 mg GT DAILY [facility] Last Admin: 06/19/19 11:34 Dose: 5 mg Amoxicillin/Clavulanate Potassium (Augmentin 600 Mg/5 Ml Oral Suspension -) 600 mg PO BID@0800,1730 [facility] Last Admin: 06/19/19 11:32 Dose: 600 mg Atorvastatin Calcium (Lipitor -) 20 mg GT HS [facility] Last Admin: 06/18/19 22:03 Dose: 20 mg Donepezil HCl (Aricept -) 10 mg GT DAILY [facility] Last Admin: 06/19/19 11:34 Dose: 10 mg Enoxaparin Sodium (Lovenox -) 60 mg SQ BID [facility] Last Admin: 06/19/19 11:33 Dose: 60 mg Famotidine (Pepcid) 20 mg PEG BID [facility] Lactobacillus Acidophilus (Bacid -) 1 tab GT BID [facility] Last Admin: 06/19/19 11:33 Dose: 1 tab Levetiracetam (Keppra Oral Solution -) 1,000 mg PEG BID [facility] Last Admin: 06/19/19 11:33 Dose: 1,000 mg Multivitamins/Minerals (Certavite-Antioxidant Liquid) 15 ml GT DAILY [facility] Last Admin: 06/19/19 11:34 Dose: 15 ml Valproate Sodium (Depakene -) 500 mg GT BID [facility] Last Admin: 06/19/19 11:35 Dose: 500 mg Warfarin Sodium (Coumadin -) 3 mg PO DAILY@1800 [facility] Chest CT: Impression: Right lower lobe infiltrate containing air bronchograms. Patchy right upper lobe infiltrates. A small amount of mucous secretions/debris is seen within the central bronchi bilaterally. Correlate clinically in regards to the possibility of aspiration pneumonitis. Mild cardiomegaly. Mild fusiform aneurysmal dilatation of the ascending aorta with a 4.2 cm diameter. Status post cholecystectomy as on an abdomen CT study of 03/10/2019. On the current exam the partially visualized common bile duct is dilated with a 1.5 cm diameter. No gross interval change is seen in comparison to the recent 2019 CT exam. Clinical/laboratory correlation is suggested. Follow-up imaging as clinically indicated. US DUPLEX: Impression: Thrombus is seen within the right internal jugular vein and possibly within the partially visualized right subclavian vein ASSESSMENT/PLAN: 74 yo M PMH of advanced Dementia, seizure disorder, CVA, afib, HTN, HLD, dysphagia presenting from [facility] for aspiration pneumonia. Acute hypoxic respiratory failure 2/2 aspiration pneumonia - CT scan reviewed, please see above zosyn discontinued s/p 7 days, augmentin bid x 3 days . augmentin day 3 - ID consulted - Flu negative, legionella/strep negative, blood cultures negative to date Failure to Thrive - Jevity 1.5 changed to Vital 1.2 - change PEG tube dressing BID AAA - stable , 4.2 cm R internal jugular and R subclavian vein thrombus - as noted on duplex -pt was on heparin bridge to coumadin. since it is difficult to get PTT on pt, changing to Lovenox bridge to coumadin. Lovenox 60 mg bid. Warfarin 5 mg. INR 2.79 today.will continue lovenox today and tomorrow. will continue to monitor Hematochezia - FOBT positive. - no additional episodes of bloody BM - continue to monitor H/H - GI following - AC resumed, will continue to monitor for signs of bleed/ hemodynamic instab ilty. if hematochezia continues will consider CTA HTN - continue home amlodipine HLD - continue home atorvastatin Afib -lovenox 60 bid, warfarin 5 mg. continue to monitor INR Seizure - c/w Keppra and Depakote - continue aspiration precautions - keep HOB elevated Dementia - continue home Aricept, may consider DC DVT ppx -lovenox to coumadin . will check INR - coumadin 5 mg. continue to monitor INR Electrolytes - repleted Dispo - continue to monitor on Med-surg FULL CODE remove appiah, straight cath as needed for urinary retention Visit type - Emergency Visit Emergency Visit: No - New Patient This patient is new to me today: No - Critical Care Critical Care patient: No - Discharge Referral Referred to [facility] Med P.C.: No ATTENDING PHYSICIAN STATEMENT I saw and evaluated the patient. I reviewed the resident's note and discussed the case with the resident. I agree with the resident's findings and plan as documented. SUBJECTIVE: OBJECTIVE: ASSESSMENT AND PLAN:
[2019-06-19] MEDS: ATORVASTATIN CA 20 MG TABLET (FP) GT SCH (21:23)
[2019-06-20 07:44] LABS: HEMATOCRIT 32.2 % (35.4-49); HEMOGLOBIN 10.6 GM/dL (11.7-16.9); MCH 29.5 pg (25.7-33.7); MCHC 32.8 g/dl (32.0-35.9); MEAN CELL VOLUME 90.1 fl (80-96); MEAN PLT VOLUME 7.3 fl (7.5-11.1); PLATELET COUNT 231 K/MM3 (134-434); RBC 3.58 M/mm3 (4.00-5.60); RDW 16.2 % (11.9-15.9)
[2019-06-20 08:13] LABS: PROTHROMBIN TIME (PATIENT) 50.1 SEC (9.7-13.0)
[2019-06-20 08:16] LABS: MAGNESIUM 1.9 mg/dL (1.8-2.4); PHOSPHOROUS 2.8 mg/dL (2.5-4.9); POTASSIUM 3.5 mmol/L (3.5-5.1)
[2019-06-20 08:35] LABS: ACTIVATED PTT 45.8 SECONDS (25.2-36.5)
[2019-06-20 09:06] LABS: INR 4.18 (0.83-1.09)
[2019-06-20] MEDS ORDERED: PT OWN MED DRAWER 7, Y5N ONE ×2 (09:40→22:16)
[2019-06-20] MEDS: AMINO ACIDS/PROTEIN HYDROLYS 30 ML LIQUID.PKT GT SCH ×2 (10:10→16:32)
[2019-06-20] MEDS: levETIRAcetam 500 MG/5 ML ORAL SOLUTION (UNIT-DOSE CUPS) PEG SCH ×2 (10:10→22:47)
[2019-06-20] MEDS: DONEPEZIL HCL 10 MG TABLET (FP) GT SCH (10:11)
[2019-06-20] MEDS: ENOXAPARIN NA (PORCINE) 60 MG/0.6 ML DISP.SYRIN SQ SCH (10:11)
[2019-06-20] MEDS: amLODIPine BESYLATE 5 MG TABLET (FP) GT SCH (10:11)
[2019-06-20] MEDS: FAMOTIDINE 40 MG/5 ML ORAL SUSPENSION PEG SCH ×2 (10:11→22:47)
[2019-06-20] MEDS: LACTOBACILLUS ACIDOPHILUS 1 TABLET GT SCH ×2 (10:11→22:29)
[2019-06-20] MEDS: VALPROATE SODIUM 250 MG/5 ML UNIT DOSE CUP GT SCH ×2 (10:12→22:46)
[2019-06-20] MEDS: MULTIVIT-MINERALS ORAL LIQUID GT SCH (10:15)
--- NOTE | 2019-06-20 19:07 | PN ---
Physical Exam: SUBJECTIVE: Patient seen and examined at bedside. pt is non verbal OBJECTIVE: Vital Signs Period Temp Pulse Resp BP Sys/Palacios Pulse Ox Last 24 Hr 97.3 F-98.5 F 80-90 18-27 111-141/58-86 98-98 GENERAL: The patient is awake, alert, in no acute distress. LUNGS: Breath sounds equal, decreased at bases, no accessory muscle use. HEART: Regular rate and rhythm, S1, S2 + murmur ABDOMEN: Soft, nondistended, normoactive bowel sounds EXTREMITIES: 2+ pulses, warm, well-perfused, 4+ UE edema. 2+ LE edema SKIN: Warm, dry, normal turgor, no rashes or lesions noted Laboratory Result 06/20/19 06/20/19 06/20/19 07:22 07:22 07:22 WBC 10.0 RBC 3.58 L Hgb 10.6 L Hct 32.2 L MCV 90.1 MCH 29.5 MCHC 32.8 RDW 16.2 H Plt Count 231 MPV 7.3 L PT with INR 50.10 H INR 4.18 H* PTT (Actin FS) 45.8 H Potassium 3.5 POC Glucometer Phosphorus 2.8 Magnesium 1.9 Current Medications Acetaminophen (Tylenol Oral Solution -) 325 mg GT Q4H PRN PRN Reason: FEVER Amino Acids (Prosource No Carb Liquid Pkt) 30 ml GT BID@0800,1730 [facility] Last Admin: 06/20/19 16:32 Dose: 30 ml Amlodipine Besylate (Norvasc -) 5 mg GT DAILY [facility] Last Admin: 06/20/19 10:11 Dose: 5 mg Atorvastatin Calcium (Lipitor -) 20 mg GT HS [facility] Last Admin: 06/19/19 21:23 Dose: 20 mg Donepezil HCl (Aricept -) 10 mg GT DAILY [facility] Last Admin: 06/20/19 10:11 Dose: 10 mg Famotidine (Pepcid) 20 mg PEG BID [facility] Last Admin: 06/20/19 10:11 Dose: 20 mg Lactobacillus Acidophilus (Bacid -) 1 tab GT BID [facility] Last Admin: 06/20/19 10:11 Dose: 1 tab Levetiracetam (Keppra Oral Solution -) 1,000 mg PEG BID [facility] Last Admin: 06/20/19 10:10 Dose: 1,000 mg Multivitamins/Minerals (Certavite-Antioxidant Liquid) 15 ml GT DAILY [facility] Last Admin: 06/20/19 10:15 Dose: 15 ml Valproate Sodium (Depakene -) 500 mg GT BID [facility] Last Admin: 06/20/19 10:12 Dose: 500 mg Warfarin Sodium (Coumadin -) 3 mg PO DAILY@1800 [facility] Last Admin: 06/19/19 17:29 Dose: [address]: Impression: Right lower lobe infiltrate containing air bronchograms. Patchy right upper lobe infiltrates. A small amount of mucous secretions/debris is seen within the central bronchi bilaterally. Correlate clinically in regards to the possibility of aspiration pneumonitis. Mild cardiomegaly. Mild fusiform aneurysmal dilatation of the ascending aorta with a 4.2 cm diameter. Status post cholecystectomy as on an abdomen CT study of 03/10/2019. On the current exam the partially visualized common bile duct is dilated with a 1.5 cm diameter. No gross interval change is seen in comparison to the recent 2019 CT exam. Cl inical/laboratory correlation is suggested. Follow-up imaging as clinically indicated. US DUPLEX: Impression: Thrombus is seen within the right internal jugular vein and possibly within the partially visualized right subclavian vein ASSESSMENT/PLAN: 74 yo M PMH of advanced Dementia, seizure disorder, CVA, afib, HTN, HLD, dysphagia presenting from [facility] for aspiration pneumonia. Acute hypoxic respiratory failure 2/2 aspiration pneumonia - CT scan reviewed, please see above zosyn discontinued s/p 7 days, augmentin bid x 3 days . augmentin DC today - ID recs appreciated - Flu negative, legionella/strep negative, blood cultures negative to date Failure to Thrive - Jevity 1.5 changed to Vital 1.2 - change PEG tube dressing BID AAA - stable , 4.2 cm R internal jugular and R subclavian vein thrombus - as noted on duplex -pt was on heparin bridge to coumadin. since it is difficult to get PTT on pt, changing to Lovenox bridge to coumadin. Lovenox 60 mg bid. Warfarin changed from 5 mg to 3 mg 2/2 supratherapeutic. INR 4.18 today.will continue lovenox today and tomorrow. will continue to monitor Hematochezia - FOBT positive. - no additional episodes of bloody BM - continue to monitor H/H - GI following - AC resumed, will continue to monitor for signs of bleed/ hemodynamic instabilty. if hematochezia continues will consider CTA HTN - continue home amlodipine HLD - continue home atorvastatin Afib -lovenox 60 bid, warfarin 3 mg. continue to monitor INR Seizure - c/w Keppra and Depakote - continue aspiration precautions - keep HOB elevated Dementia - continue home Aricept, may consider DC DVT ppx -lovenox to coumadin . will check INR - coumadin 3 mg. continue to monitor INR Electrolytes - repleted Dispo - continue to monitor on Med-surg FULL CODE Visit type - Emergency Visit Emergency Visit: No - New Patient This patient is new to me today: No - Critical Care Critical Care patient: No - Discharge Referral Referred to [facility] Med P.C.: No ATTENDING PHYSICIAN STATEMENT I saw and evaluated the patient. I reviewed the resident's note and discussed the case with the resident. I agree with the resident's findings and plan as documented. SUBJECTIVE: OBJECTIVE: ASSESSMENT AND PLAN:
--- NOTE | 2019-06-20 19:24 | PN ---
Teaching Attending Note Name of Resident: Malou Doe ATTENDING PHYSICIAN STATEMENT I saw and evaluated the patient. I reviewed the resident's note and discussed the case with the resident. I agree with the resident's findings and plan as documented. SUBJECTIVE: No events OBJECTIVE: Non verbal CV: RRR, 3/6 SM at LUSB and LLSB Lungs: Clear anteriorly Abd:soft, NT, PEG in , ND , nl BS. edema on upper extremities R > L. trace edema on legs . ASSESSMENT AND PLAN: 74 y/o man with h/o dementia, non verbal, HTN, HLP, A fib , seizure disorder, CVA , dysphagia, and other medical problems ho presented with resp distress. He was diagnosed with acute resp failure and PNA 1- Sepsis: resolved 2- PNA, likely aspiration 3- Rectal bleeding 4- R IJ and subclavian thrombus while on Eliquis 5- Malnutrition 6- HTN 7- A fib 8- HLP 9- hypophosphatemia and hypokalemia: resolved 10- supratherapeutic INR Plan: - stable HB. no bleeding . cont conservative management - finished abx course - INR noted. hold coumadin . dc Lovenox ( day 5) - cont chronic meds - monitor electrolytes - Scds Full code per family wishes Dc planning. he came from [facility]. Once INR is close to 3, or 2-3 , coumadin can be started at a lower dose and then dc with INR f/u
[2019-06-20] MEDS: ATORVASTATIN CA 20 MG TABLET (FP) GT SCH (22:37)
[2019-06-21 07:53] LABS: HEMATOCRIT 30.3 % (35.4-49); HEMOGLOBIN 10.1 GM/dL (11.7-16.9); MCH 29.9 pg (25.7-33.7); MCHC 33.5 g/dl (32.0-35.9); MEAN CELL VOLUME 89.3 fl (80-96); MEAN PLT VOLUME 7.9 fl (7.5-11.1); PLATELET COUNT 216 K/MM3 (134-434); RBC 3.39 M/mm3 (4.00-5.60); RDW 16.6 % (11.9-15.9); WHITE BLOOD COUNT 8.3 K/mm3 (4.0-10.0)
[2019-06-21 07:59] LABS: INR 2.57 (0.83-1.09); PROTHROMBIN TIME (PATIENT) 30.6 SEC (9.7-13.0)
--- NOTE | 2019-06-21 09:12 | PN ---
Teaching Attending Note Name of Resident: Malou Doe ATTENDING PHYSICIAN STATEMENT I saw and evaluated the patient. I reviewed the resident's note and discussed the case with the resident. I agree with the resident's findings and plan as documented. SUBJECTIVE: Patient is comfortable with no acute distress. Vital Signs Temperature 98.2 F 06/21/19 06:00 Pulse Rate 84 06/21/19 06:00 Respiratory Rate 20 06/21/19 06:00 Blood Pressure 128/68 06/21/19 06:00 O2 Sat by Pulse Oximetry (%) 98 06/20/19 21:00 GENERAL: The patient is awake, alert, and fully oriented, in no acute distress. HEAD: Normal with no signs of trauma. EYES: PERRL, extraocular movements intact, sclera anicteric, conjunctiva clear. ENT: Ears normal, oropharynx clear without exudates, moist mucous membranes. NECK: Trachea midline, full range of motion, supple. LUNGS: Breath sounds equal, clear to auscultation bilaterally, no wheezes, no crackles, no accessory muscle use. HEART: Regular rate and rhythm, S1, S2 without murmur, rub or gallop. ABDOMEN: Soft, nontender, nondistended, normoactive bowel sounds, no guarding, no rebound, no hepatosplenomegaly, no masses. EXTREMITIES: 2+ pulses, warm, well-perfused, no edema. NEUROLOGICAL: Cranial nerves II through XII grossly intact. Normal speech, gait not observed. PSYCH: Normal mood, normal affect. SKIN: Warm, dry, normal turgor, no rashes or lesions noted CBCD WBC 8.3 K/mm3 (4.0-10.0) 06/21/19 06:53 RBC 3.39 M/mm3 (4.00-5.60) L 06/21/19 06:53 Hgb 10.1 GM/dL (11.7-16.9) L 06/21/19 06:53 Hct 30.3 % (35.4-49) L 06/21/19 06:53 MCV 89.3 fl (80-96) 06/21/19 06:53 MCHC 33.5 g/dl (32.0-35.9) 06/21/19 06:53 RDW 16.6 % (11.9-15.9) H 06/21/19 06:53 Plt Count 216 K/MM3 (134-434) 06/21/19 06:53 MPV 7.9 fl (7.5-11.1) 06/21/19 06:53 CMP Sodium 143 mmol/L (136-145) 06/18/19 06:00 Potassium 3.5 mmol/L (3.5-5.1) 06/20/19 07:22 Chloride 108 mmol/L (98-107) H 06/18/19 06:00 Carbon Dioxide 31 mmol/L (21-32) 06/18/19 06:00 Anion Gap 4 MMOL/L (8-16) L 06/18/19 06:00 BUN 11.1 mg/dL (7-18) 06/18/19 06:00 Creatinine 0.3 mg/dL (0.55-1.3) L 06/18/19 06:00 Random Glucose 94 mg/dL (74-106) 06/18/19 06:00 Calcium 7.9 mg/dL (8.5-10.1) L 06/18/19 06:00 Total Bilirubin 0.4 mg/dL (0.2-1) 06/18/19 06:00 AST 58 U/L (15-37) H 06/18/19 06:00 ALT 22 U/L (13-61) 06/18/19 06:00 Alkaline Phosphatase 100 U/L (45-117) 06/18/19 06:00 Total Protein 5.7 g/dl (6.4-8.2) L 06/18/19 06:00 Albumin 1.9 g/dl (3.4-5.0) L 06/18/19 06:00 CARDIAC ENZYMES Creatine Kinase 45 U/L (26-308) 06/10/19 04:28 Troponin I < 0.02 ng/ml (0.00-0.05) 06/10/19 04:28 Current Medications Generic Name Dose Route Start Last Admin Trade Name Freq PRN Reason Stop Dose Admin Acetaminophen 325 mg 06/10/19 19:41 Tylenol Oral Solution - GT Q4H PRN FEVER Amino Acids 30 ml 06/10/19 17:30 06/20/19 16:32 Prosource No Carb Liquid Pkt GT 30 ml BID@0800,1730 CHRIS Administration Amlodipine Besylate 5 mg 06/10/19 19:35 06/20/19 10:11 Norvasc - GT 5 mg DAILY CHRIS Administration Atorvastatin Calcium 20 mg 06/10/19 22:00 06/20/19 22:37 Lipitor - GT 20 mg HS CHRIS Administration Donepezil HCl 10 mg 06/10/19 19:15 06/20/19 10:11 Aricept - GT 10 mg DAILY CHRIS Administration Famotidine 20 mg 06/20/19 10:00 06/20/19 22:47 Pepcid PEG 20 mg BID CHRIS Administration Lactobacillus Acidophilus 1 tab 06/13/19 22:00 06/20/19 22:29 Bacid - GT 1 tab BID CHRIS Administration Levetiracetam 1,000 mg 06/13/19 22:00 06/20/19 22:47 Keppra Oral Solution - PEG 1,000 mg BID CHRIS Administration Multivitamins/Minerals 15 ml 06/11/19 10:00 06/20/19 10:15 Certavite-Antioxidant Liquid GT 15 ml DAILY CHRIS Administration Valproate Sodium 500 mg 06/13/19 22:00 06/20/19 22:46 Depakene - GT 500 mg BID CHRIS Administration Warfarin Sodium 2.5 mg 06/21/19 18:00 Coumadin - PO DAILY@1800 [facility] Home Medications Medication Instructions Recorded Acetaminophen [Tylenol] 650 mg GT Q4H PRN 03/03/19 Apixaban [Eliquis] 5 mg GT BID 03/03/19 Atorvastatin Ca [Lipitor] 20 mg GT HS 03/03/19 Cyanocobalamin (Vitamin B-12) 1,000 mcg SQ ASDIR 03/03/19 [Cyanocobalamin Injection] Multivitamin [Multiple Vitamins] 1 each GT DAILY 03/03/19 Sennosides [Senna Lax] 8.6 mg GT BID 03/03/19 levETIRAcetam [levETIRAcetam ORAL 1,000 mg GT BID 03/03/19 SUSPENSION] Albuterol 2.5/Ipratropium 0.5 1 neb NEB Q4H 06/13/19 [Duoneb -] Donepezil HCl [Aricept -] 10 mg GT HS 06/13/19 Omeprazole Magnesium [Prilosec] 40 mg GT DAILY 06/13/19 Valproate Sodium Liquid [Depakene 500 mg GT BID 06/13/19 Oral Solution -] Valproate Sodium [Depakene] 500 mg GT BID 06/13/19 Laboratory Tests 06/19/19 06/20/19 06/21/19 10:33 07:22 06:53 INR 2.79 H 4.18 H* 2.57 H Duplex of upper extremities: thrombus is seen within the RIJ vein and possibly within the partially visualized subclavian vein. ASSESSMENT AND PLAN: 74 y/o man with h/o dementia, non verbal, HTN, HLP, A fib , seizure disorder, CVA , dysphagia, and other medical problems ho presented with resp distress. He was diagnosed with acute resp failure and PNA # R IJ and subclavian thrombus while on Eliquis, on coumadin now with INR of 2.57 # Sepsis: resolved due to PNA # PNA likely aspiration completed abx # Rectal bleeding: no further bleed, monitor, H/H is stable # Malnutrition # HTN: normotensive now # A fib with rate controlled on coumadin # Seizure disorder: continue home meds. # hypophosphatemia and hypokalemia: resolved Scds Full code per family wishes Dc planning to [place]. Once INR is therapeutic , is 2.57 today
[2019-06-21] MEDS ORDERED: PT OWN MED DRAWER 7, Y5N ONE ×5 (09:24→20:52)
[2019-06-21] MEDS: VALPROATE SODIUM 250 MG/5 ML UNIT DOSE CUP GT SCH ×2 (11:25→21:08)
[2019-06-21] MEDS: AMINO ACIDS/PROTEIN HYDROLYS 30 ML LIQUID.PKT GT SCH ×2 (11:25→18:10)
[2019-06-21] MEDS: MULTIVIT-MINERALS ORAL LIQUID GT SCH (11:25)
[2019-06-21] MEDS: levETIRAcetam 500 MG/5 ML ORAL SOLUTION (UNIT-DOSE CUPS) PEG SCH ×2 (11:25→21:08)
[2019-06-21] MEDS: DONEPEZIL HCL 10 MG TABLET (FP) GT SCH (11:26)
[2019-06-21] MEDS: amLODIPine BESYLATE 5 MG TABLET (FP) GT SCH (11:27)
[2019-06-21] MEDS: LACTOBACILLUS ACIDOPHILUS 1 TABLET GT SCH ×2 (11:27→21:08)
[2019-06-21] MEDS: FAMOTIDINE 40 MG/5 ML ORAL SUSPENSION PEG SCH ×2 (11:28→21:08)
--- NOTE | 2019-06-21 17:45 | PN ---
Physical Exam: SUBJECTIVE: Patient seen and examined at bedside. pt non verbal OBJECTIVE: Vital Signs Period Temp Pulse Resp BP Sys/Palacios Pulse Ox Last 24 Hr 97.5 F-98.3 F 69-84 18-22 111-130/60-74 98 GENERAL: The patient is awake, alert, and fully oriented, in no acute distress. HEAD: Normal with no signs of trauma. LUNGS: Breath sounds decreased b/l bases , no accessory muscle use. HEART: Regular rate and rhythm, S1, S2, + murmur ABDOMEN: Soft, nondistended, normoactive bowel sounds, no guarding EXTREMITIES: 2+ pulses, warm, well-perfused, 3+ UE edema, 2+ Le edema SKIN: Warm, dry, normal turgor, no rashes or lesions noted Laboratory Results - last 24 hr 06/20/19 06/21/19 06/21/19 21:15 05:49 06:53 WBC 8.3 RBC 3.39 L Hgb 10.1 L Hct 30.3 L MCV 89.3 MCH 29.9 MCHC 33.5 RDW 16.6 H Plt Count 216 MPV 7.9 PT with INR INR POC Glucometer 84 82 06/21/19 06:53 WBC RBC Hgb Hct MCV MCH MCHC RDW Plt Count MPV PT with INR 30.60 H INR 2.57 H POC Glucometer Current Medications Acetaminophen (Tylenol Oral Solution -) 325 mg GT Q4H PRN PRN Reason: FEVER Amino Acids (Prosource No Carb Liquid Pkt) 30 ml GT BID@0800,1730 [facility] Last Admin: 06/21/19 11:25 Dose: 30 ml Amlodipine Besylate (Norvasc -) 5 mg GT DAILY [facility] Last Admin: 06/21/19 11:27 Dose: 5 mg Atorvastatin Calcium (Lipitor -) 20 mg GT HS [facility] Last Admin: 06/20/19 22:37 Dose: 20 mg Donepezil HCl (Aricept -) 10 mg GT DAILY [facility] Last Admin: 06/21/19 11:26 Dose: 10 mg Famotidine (Pepcid) 20 mg PEG BID [facility] Last Admin: 06/21/19 11:28 Dose: 20 mg Lactobacillus Acidophilus (Bacid -) 1 tab GT BID [facility] Last Admin: 06/21/19 11:27 Dose: 1 tab Levetiracetam (Keppra Oral Solution -) 1,000 mg PEG BID [facility] Last Admin: 06/21/19 11:25 Dose: 1,000 mg Multivitamins/Minerals (Certavite-Antioxidant Liquid) 15 ml GT DAILY [facility] Last Admin: 06/21/19 11:25 Dose: 15 ml Valproate Sodium (Depakene -) 500 mg GT BID [facility] Last Admin: 06/21/19 11:25 Dose: 500 mg Warfarin Sodium (Coumadin -) 2.5 mg PO DAILY@1800 [facility] Chest CT: Impression: Right lower lobe infiltrate containing air bronchograms. Patchy right upper lobe infiltrates. A small amount of mucous secretions/debris is seen within the central bronchi bilaterally. Correlate clinically in regards to the possibility of aspiration pneumonitis. Mild cardiomegaly. Mild fusiform aneurysmal dilatation of the ascending aorta with a 4.2 cm diameter. Status post cholecystectomy as on an abdomen CT study of 03/10/2019. On the current exam the partially visualized common bile duct is dilated with a 1.5 cm diameter. No gross interval change is seen in comparison to the recent 2019 CT exam. Clinical/laboratory correlation is suggested. Follow-up imaging as clinically indicated. US DUPLEX: Impression: Thrombus is seen within the right internal jugular vein and possibly within the partially visualized right subclavian vein ASSESSMENT/PLAN: 74 yo M PMH of advanced Dementia, seizure disorder, CVA, afib, HTN, HLD, dysphagia presenting from [facility] for aspiration pneumonia. Acute hypoxic respiratory failure 2/2 aspiration pneumonia - CT scan reviewed, please see above zosyn discontinued s/p 7 days, augmentin bid x 3 days . augmentin DC today - ID recs appreciated - Flu negative, legionella/strep negative, blood cultures negative to date Failure to Thrive - Jevity 1.5 changed to Vital 1.2 - change PEG tube dressing BID AAA - stable , 4.2 cm R internal jugular and R subclavian vein thrombus - as noted on duplex inr today is 2.57, on warfarin 2.5 Hematochezia - FOBT positive., rpt negative . - no additional episodes of bloody BM - continue to monitor H/H/ h/h stable - GI following - AC resumed, will continue to monitor for signs of bleed/ hemodynamic instabilty. if hematochezia continues will consider CTA HTN - continue home amlodipine HLD - continue home atorvastatin Afib -lovenox 60 bid, warfarin 3 mg. continue to monitor INR Seizure - c/w Keppra and Depakote - continue aspiration precautions - keep HOB elevated Dementia - continue home Aricept, may consider DC DVT ppx -lovenox to coumadin . will check INR - coumadin 2.5 mg. continue to monitor INR Electrolytes - repleted Dispo - continue to monitor on Med-surg FULL CODE Visit type - Emergency Visit Emergency Visit: No - New Patient This patient is new to me today: No - Critical Care Critical Care patient: No - Discharge Referral Referred to [facility] Med P.C.: No ATTENDING PHYSICIAN STATEMENT I saw and evaluated the patient. I reviewed the resident's note and discussed the case with the resident. I agree with the resident's findings and plan as documented. SUBJECTIVE: OBJECTIVE: ASSESSMENT AND PLAN:
[2019-06-21] MEDS: WARFARIN NA 2.5 MG TABLET (FP) PO SCH (18:10)
[2019-06-21] MEDS: ATORVASTATIN CA 20 MG TABLET (FP) GT SCH (21:08)
[2019-06-22 07:06] LABS: HEMATOCRIT 31.2 % (35.4-49); HEMOGLOBIN 10.3 GM/dL (11.7-16.9); MCH 29.6 pg (25.7-33.7); MCHC 33.1 g/dl (32.0-35.9); MEAN CELL VOLUME 89.6 fl (80-96); MEAN PLT VOLUME 7.5 fl (7.5-11.1); PLATELET COUNT 239 K/MM3 (134-434); RBC 3.49 M/mm3 (4.00-5.60); RDW 16.6 % (11.9-15.9); WHITE BLOOD COUNT 9.2 K/mm3 (4.0-10.0)
[2019-06-22] MEDS ORDERED: PT OWN MED DRAWER 7, Y5N ONE ×3 (08:04→17:28)
[2019-06-22] MEDS: AMINO ACIDS/PROTEIN HYDROLYS 30 ML LIQUID.PKT GT SCH ×2 (11:03→17:16)
[2019-06-22] MEDS: DONEPEZIL HCL 10 MG TABLET (FP) GT SCH (11:03)
[2019-06-22] MEDS: amLODIPine BESYLATE 5 MG TABLET (FP) GT SCH (11:03)
[2019-06-22] MEDS: LACTOBACILLUS ACIDOPHILUS 1 TABLET GT SCH (11:04)
[2019-06-22 11:05] LABS: INR 2.49 (0.83-1.09); PROTHROMBIN TIME (PATIENT) 29.6 SEC (9.7-13.0)
[2019-06-22] MEDS: VALPROATE SODIUM 250 MG/5 ML UNIT DOSE CUP GT SCH (11:05)
[2019-06-22] MEDS: MULTIVIT-MINERALS ORAL LIQUID GT SCH (11:05)
[2019-06-22] MEDS: levETIRAcetam 500 MG/5 ML ORAL SOLUTION (UNIT-DOSE CUPS) PEG SCH (11:06)
[2019-06-22] MEDS: FAMOTIDINE 40 MG/5 ML ORAL SUSPENSION PEG SCH (11:06)
--- NOTE | 2019-06-22 13:30 | DS ---
Physical Exam: SUBJECTIVE: Patient seen and examined at bedside. pt is non verbal OBJECTIVE: Vital Signs Period Temp Pulse Resp BP Sys/Palacios Pulse Ox Last 24 Hr 97.4 F-98.3 F 69-88 123-145/63-78 97 PHYSICAL EXAM GENERAL: The patient is awake, alert, and fully oriented, in no acute distress. HEAD: Normal with no signs of trauma. LUNGS: Breath sounds equal, decreased at bases, no accessory muscle use. HEART: Regular rate and rhythm, S1, S2 + systolic murmur ABDOMEN: Soft, nondistended, normoactive bowel sounds, no guarding, no erythema around PEG Site EXTREMITIES: 2+ pulses, warm, well-perfused, 3+ edema UE, 1+ LE . LABS Laboratory Results - last 24 hr 06/21/19 06/22/19 06/22/19 23:45 05:55 06:33 WBC 9.2 RBC 3.49 L Hgb 10.3 L Hct 31.2 L MCV 89.6 MCH 29.6 MCHC 33.1 RDW 16.6 H Plt Count 239 MPV 7.5 PT with INR INR POC Glucometer 94 90 06/22/19 10:30 WBC RBC Hgb Hct MCV MCH MCHC RDW Plt Count MPV PT with INR 29.60 H INR 2.49 H POC Glucometer HOSPITAL COURSE: Date of Admission:06/10/[address]: Impression: Right lower lobe infiltrate containing air bronchograms. Patchy right upper lobe infiltrates. A small amount of mucous secretions/debris is seen within the central bronchi bilaterally. Correlate clinically in regards to the possibility of aspiration pneumonitis. Mild cardiomegaly. Mild fusiform aneurysmal dilatation of the ascending aorta with a 4.2 cm diameter. Status post cholecystectomy as on an abdomen CT study of 03/10/2019. On the current exam the partially visualized common bile duct is dilated with a 1.5 cm diameter. No gross interval change is seen in comparison to the recent 2019 CT exam. Clinical/laboratory correlation is suggested. Follow-up imaging as clinically indicated. US DUPLEX: Impression: Thrombus is seen within the right internal jugular vein and possibly within the partially visualized right subclavian vein ASSESSMENT/PLAN: 74 yo M PMH of advanced Dementia, seizure disorder, CVA, afib, HTN, HLD, dysphagia presenting from [facility] for aspiration pneumonia. pt had a CT scan, please see above. pt tested negative for flu, legionella, BCx negative. Pt was getting PEG feedings as recommended by fruit room hand, pt had Duplex U/S showing R IJ and R subclavian thrombus and was bridged to coumadin. pt was evaluated by GI for possible hematochezia but H/H remained stable and GI continued to monitored for possible CTA. Pt was continued on chronic home meds and started on coumadin 2.5 for AC , AFib. pt should f/u with PMD and GI Date of Discharge: 06/22/19 Minutes to complete discharge: 36 Discharge Summary Problems reviewed: Yes Reason For Visit: ASPIRATION PNEUMONITIS Condition: Guarded - Instructions Diet, Activity, Other Instructions: You came into the hospital for trouble breathing. You were found to have a pneumonia, most likely from aspirating. We treated you with a complete course of antibiotics. While you were in the hospital, you had a chest Catscan showing that you have the pneumonia. The catscan also showed that your aortic aneurysm is stable at 4.2 cm. You had an ultrasound of your upper extremities showing that you have a clot in your internal jugular vein in your neck and in the subclavian vein in your chest, it is important that you are on anticoagulation. Your bloodwork shows that you have anemia. We have made some changes to your medications. Please DO NOT Take Eliquis. You are going to start taking Warfarin 2.5 mg daily. Please continue your other home medications as prescribed. You were evaluated by dietary who made the following recommendations for your tube feeds: Vital 1.2 goal rate of 50 ml with 25 ml water flush with each hour of feeding for 24 hours. Please follow up with your primary care physician in 3 days to check your INR. You will need frequent and close INR monitoring. 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 If you have any new, worsening, or concerning symptoms please return to the ER or call 911. Referrals: Cortez Dozier MD [Staff Physician] - 1 Week Bri To MD [Staff Physician] - 1 Week Disposition: [facility] FACILITY - Home Medications Comprehensive Discharge Medication List: Ambulatory Orders Acetaminophen [Tylenol] 650 mg GT Q4H PRN 03/03/19 Apixaban [Eliquis] 5 mg GT BID 03/03/19 Atorvastatin Ca [Lipitor] 20 mg GT HS 03/03/19 Cyanocobalamin (Vitamin B-12) [Cyanocobalamin Injection] 1,000 mcg SQ ASDIR 03/03/19 Multivitamin [Multiple Vitamins] 1 each GT DAILY 03/03/19 Sennosides [Senna Lax] 8.6 mg GT BID 03/03/19 levETIRAcetam [levETIRAcetam ORAL SUSPENSION] 1,000 mg GT BID 03/03/19 Albuterol 2.5/Ipratropium 0.5 [Duoneb -] 1 neb NEB Q4H 06/13/19 Donepezil HCl [Aricept -] 10 mg GT HS 06/13/19 Omeprazole Magnesium [Prilosec] 40 mg GT DAILY 06/13/19 Valproate Sodium Liquid [Depakene Oral Solution -] 500 mg GT BID 06/13/19 Valproate Sodium [Depakene] 500 mg GT BID 06/13/19 Warfarin Sodium 2.5 mg GT DAILY #30 tablet 06/22/19 This patient is new to me today: No Emergency Visit: No Critical Care patient: No - Discharge Referral Referred to [facility] Med P.C.: No Physician Referral: Issa Call DO (GI) ATTENDING PHYSICIAN STATEMENT I saw and evaluated the patient. I reviewed the resident's note and discussed the case with the resident. I agree with the resident's findings and plan as documented. SUBJECTIVE: OBJECTIVE: ASSESSMENT AND PLAN:
[2019-06-22 15:34] VITALS: BP 109/54; PULSE 86; TEMP 98.1
[2019-06-22] MEDS ORDERED: ZINC OXIDE 20% TOPICAL OINTMENT 30 GM TUBE TP ONE (15:45)
[2019-06-22] MEDS: WARFARIN NA 2.5 MG TABLET (FP) PO SCH (17:16)
--- NOTE | 2019-06-22 19:00 | PN ---
Teaching Attending Note Name of Resident: Malou Doe ATTENDING PHYSICIAN STATEMENT I saw and evaluated the patient. I reviewed the resident's note and discussed the case with the resident. I agree with the resident's findings and plan as documented. SUBJECTIVE: Patient is comfortable with no acute distress. no fever or chills, no shortness of breath. Vital Signs Temperature 98.1 F 06/22/19 15:33 Pulse Rate 86 06/22/19 15:33 Respiratory Rate 22 H 06/22/19 15:33 Blood Pressure 109/54 L 06/22/19 15:33 O2 Sat by Pulse Oximetry (%) 97 06/21/19 21:00 GENERAL: The patient is awake, non verbal in no acute distress. HEAD: Normal with no signs of trauma. EYES: PERRL, extraocular movements intact, sclera anicteric, conjunctiva clear. ENT: Ears normal, oropharynx clear without exudates, moist mucous membranes. NECK: Trachea midline, full range of motion, supple. LUNGS: Breath sounds equal, clear to auscultation bilaterally, no wheezes, no crackles, no accessory muscle use. HEART: Regular rate and rhythm, S1, S2 +,MIKE 2/6 ,no rub or gallop. ABDOMEN: Soft, nontender, nondistended, normoactive bowel sounds, no guarding, no rebound,+ Gtube EXTREMITIES: 2+ pulses, warm, well-perfused, no edema. NEUROLOGICAL: non verbal, awake SKIN: Warm, dry, normal turgor. CBCD WBC 9.2 K/mm3 (4.0-10.0) 06/22/19 05:55 RBC 3.49 M/mm3 (4.00-5.60) L 06/22/19 05:55 Hgb 10.3 GM/dL (11.7-16.9) L 06/22/19 05:55 Hct 31.2 % (35.4-49) L 06/22/19 05:55 MCV 89.6 fl (80-96) 06/22/19 05:55 MCHC 33.1 g/dl (32.0-35.9) 06/22/19 05:55 RDW 16.6 % (11.9-15.9) H 06/22/19 05:55 Plt Count 239 K/MM3 (134-434) 06/22/19 05:55 MPV 7.5 fl (7.5-11.1) 06/22/19 05:55 CMP Sodium 143 mmol/L (136-145) 06/18/19 06:00 Potassium 3.5 mmol/L (3.5-5.1) 06/20/19 07:22 Chloride 108 mmol/L (98-107) H 06/18/19 06:00 Carbon Dioxide 31 mmol/L (21-32) 06/18/19 06:00 Anion Gap 4 MMOL/L (8-16) L 06/18/19 06:00 BUN 11.1 mg/dL (7-18) 06/18/19 06:00 Creatinine 0.3 mg/dL (0.55-1.3) L 06/18/19 06:00 Random Glucose 94 mg/dL (74-106) 06/18/19 06:00 Calcium 7.9 mg/dL (8.5-10.1) L 06/18/19 06:00 Total Bilirubin 0.4 mg/dL (0.2-1) 06/18/19 06:00 AST 58 U/L (15-37) H 06/18/19 06:00 ALT 22 U/L (13-61) 06/18/19 06:00 Alkaline Phosphatase 100 U/L (45-117) 06/18/19 06:00 Total Protein 5.7 g/dl (6.4-8.2) L 06/18/19 06:00 Albumin 1.9 g/dl (3.4-5.0) L 06/18/19 06:00 CARDIAC ENZYMES Creatine Kinase 45 U/L (26-308) 06/10/19 04:28 Troponin I < 0.02 ng/ml (0.00-0.05) 06/10/19 04:28 Current Medications Generic Name Dose Route Start Last Admin Trade Name Freq PRN Reason Stop Dose Admin Acetaminophen 325 mg 06/10/19 19:41 Tylenol Oral Solution - GT Q4H PRN FEVER Amino Acids 30 ml 06/10/19 17:30 06/20/19 16:32 Prosource No Carb Liquid Pkt GT 30 ml BID@0800,1730 CHRIS Administration Amlodipine Besylate 5 mg 06/10/19 19:35 06/20/19 10:11 Norvasc - GT 5 mg DAILY CHRIS Administration Atorvastatin Calcium 20 mg 06/10/19 22:00 06/20/19 22:37 Lipitor - GT 20 mg HS CHRIS Administration Donepezil HCl 10 mg 06/10/19 19:15 06/20/19 10:11 Aricept - GT 10 mg DAILY CHRIS Administration Famotidine 20 mg 06/20/19 10:00 06/20/19 22:47 Pepcid PEG 20 mg BID CHRIS Administration Lactobacillus Acidophilus 1 tab 06/13/19 22:00 06/20/19 22:29 Bacid - GT 1 tab BID CHRIS Administration Levetiracetam 1,000 mg 06/13/19 22:00 06/20/19 22:47 Keppra Oral Solution - PEG 1,000 mg BID CHRIS Administration Multivitamins/Minerals 15 ml 06/11/19 10:00 06/20/19 10:15 Certavite-Antioxidant Liquid GT 15 ml DAILY CHRIS Administration Valproate Sodium 500 mg 06/13/19 22:00 06/20/19 22:46 Depakene - GT 500 mg BID CHRIS Administration Warfarin Sodium 2.5 mg 06/21/19 18:00 Coumadin - PO DAILY@1800 [facility] Home Medications Medication Instructions Recorded Acetaminophen [Tylenol] 650 mg GT Q4H PRN 03/03/19 Apixaban [Eliquis] 5 mg GT BID 03/03/19 Atorvastatin Ca [Lipitor] 20 mg GT HS 03/03/19 Cyanocobalamin (Vitamin B-12) 1,000 mcg SQ ASDIR 03/03/19 [Cyanocobalamin Injection] Multivitamin [Multiple Vitamins] 1 each GT DAILY 03/03/19 Sennosides [Senna Lax] 8.6 mg GT BID 03/03/19 levETIRAcetam [levETIRAcetam ORAL 1,000 mg GT BID 03/03/19 SUSPENSION] Albuterol 2.5/Ipratropium 0.5 1 neb NEB Q4H 06/13/19 [Duoneb -] Donepezil HCl [Aricept -] 10 mg GT HS 06/13/19 Omeprazole Magnesium [Prilosec] 40 mg GT DAILY 06/13/19 Valproate Sodium Liquid [Depakene 500 mg GT BID 06/13/19 Oral Solution -] Valproate Sodium [Depakene] 500 mg GT BID 06/13/19 Home Medications Medication Instructions Recorded Acetaminophen [Tylenol] 650 mg GT Q4H PRN 03/03/19 Apixaban [Eliquis] 5 mg GT BID 03/03/19 Atorvastatin Ca [Lipitor] 20 mg GT HS 03/03/19 Cyanocobalamin (Vitamin B-12) 1,000 mcg SQ ASDIR 03/03/19 [Cyanocobalamin Injection] Multivitamin [Multiple Vitamins] 1 each GT DAILY 03/03/19 Sennosides [Senna Lax] 8.6 mg GT BID 03/03/19 levETIRAcetam [levETIRAcetam ORAL 1,000 mg GT BID 03/03/19 SUSPENSION] Albuterol 2.5/Ipratropium 0.5 1 neb NEB Q4H 06/13/19 [Duoneb -] Donepezil HCl [Aricept -] 10 mg GT HS 06/13/19 Omeprazole Magnesium [Prilosec] 40 mg GT DAILY 06/13/19 Valproate Sodium Liquid [Depakene 500 mg GT BID 06/13/19 Oral Solution -] Valproate Sodium [Depakene] 500 mg GT BID 06/13/19 Warfarin Sodium 2.5 mg GT DAILY #30 tablet 06/22/19 Laboratory Tests 06/19/19 06/20/19 06/21/19 10:33 07:22 06:53 INR 2.79 H 4.18 H* 2.57 H 06/22/19 10:30 INR 2.49 H Duplex of upper extremities: thrombus is seen within the RIJ vein and possibly within the partially visualized subclavian vein. ASSESSMENT AND PLAN: 74 y/o man with h/o dementia, non verbal, HTN, HLP, A fib , seizure disorder, CVA , dysphagia, presented with resp distress. He was diagnosed with acute resp failure and PNA # R IJ and subclavian thrombus while on Eliquis, continue coumadin 2.5mg now with INR of 2.49 today , repeat level in 2 days. # Sepsis: resolved due to PNA # PNA likely aspiration completed abx # Rectal bleeding: no further bleed, monitor, H/H is stable # HTN: normotensive now # A fib with rate controlled on coumadin # Seizure disorder: continue home meds. #Hx of CVA with dysphagia on tube feed # Functional quatraplegia. Scds Full code per family wishes Once INR is therapeutic , is 2.49 today Dc back to [place] today.
== END 2019-06-22 17:59 | DRG 871 ==
LOC: JER 16:41 → JERBED 06-10 02:00 → J8W 06-10 05:29
PROVIDERS: ADMIT Internal Medicine; ATTEND Internal Medicine
PROC: 0DH67UZ Insertion of Feeding Device into Stomach, Via Natural or Artificial Opening (ICD-10-PCS; principal; 2019-06-12)
DX: A41.9 Sepsis, unspecified organism (principal); J69.0 Pneumonitis due to inhalation of food and vomit; J96.01 Acute respiratory failure with hypoxia; J98.11 Atelectasis; J90 Pleural effusion, not elsewhere classified; I82.C11 Acute embolism and thrombosis of right internal jugular vein; E44.0 Moderate protein-calorie malnutrition; Z43.1 Encounter for attention to gastrostomy; R65.20 Severe sepsis without septic shock; F03.90 Unspecified dementia, unspecified severity, without behavioral disturbance, psychotic disturbance, mood disturbance, and anxiety; I10 Essential (primary) hypertension
CPT/HCPCS: 36415; 36600; 71045-TC-FY; 71250-TC; 74018-TC-FY; 80048; 80053; 81003; 82272; 82375; 82550; 82803; 82947; 82962; 83050; 83605; 83735; 83880; 84100; 84132; 84443; 84484; 85025; 85027; 85610; 85730; 87040; 87086; 87804; 87899; 93005; 93010; 93971; 99285-25; J0131; J1644; J7030